=== PATIENT | male | born 1950 | race Caucasian/White ===

== ENCOUNTER 2016-06-25 12:12 | Inpatient (IN) | payer MEDICARE ==
[~2016-06-25] VITALS: Ht 180.3 cm; Wt 97.2 kg
[2016-07-02] MEDS ORDERED: PANT20TA2 PO (09:23)
[2016-07-02] MEDS ORDERED: FURO20TA PO (09:23)
[2016-07-02] MEDS ORDERED: METO25TA3 PO (09:23)
[2016-07-02] MEDS ORDERED: POTA99TA PO (09:23)
[2016-07-02] MEDS ORDERED: XARE20TA PO (09:23)
[2016-07-02] MEDS ORDERED: ATOR20TA15 PO (09:23)
[2016-07-02] MEDS ORDERED: SOTA80TA PO (09:23)
[2016-07-02] MEDS ORDERED: FLUO20CA4 PO (09:23)
[2016-07-19] MEDS ORDERED: SODIUM CHLORIDE 0.9% INJ 100 ML ONE (05:42)
[2016-07-19] MEDS ORDERED: SODIUM CHLORIDE 0.9% IV SCH ×2 (05:45→10:30)
[2016-07-19] MEDS ORDERED: DEXAMETHASONE SOD PHOS 20 MG/5 ML VIAL IV PRN (05:45)
[2016-07-19] MEDS ORDERED: VANCOMYCIN 1000 MG/NS 250 ML (for <70 kg) IV SCH ×2 (05:45)
[2016-07-19] MEDS ORDERED: POVIDONE IODINE 5% (ANTISEPSIS KIT) 4 APPLICATIONS EACH NARE PRN (05:45)
[2016-07-19] MEDS ORDERED: CHLORHEXIDINE GLUCONATE 4% SOLN 120 ML BTL TOPICAL SCH (05:45)
[2016-07-19] MEDS ORDERED: EXPAREL PERI-ARTICULAR INJECTION (TOTAL VOL. 60 ML) P-ARTICULR SCH ×2 (05:45)
[2016-07-19] MEDS ORDERED: SODIUM CHLORID 0.9% 500 ML IV PRN (05:45)
[2016-07-19] MEDS ORDERED: LACTATED RINGER'S 1000 ML IV PRN (05:45)
[2016-07-19] MEDS ORDERED: CLINDAMYCIN 900 MG/NS 100 ML IV SCH ×2 (05:45)
[2016-07-19] MEDS ORDERED: INSULIN HUMAN REGULAR 1,000 UNITS/10 ML VIAL SQ PRN (05:45)
[2016-07-19] MEDS ORDERED: POVIDONE IODINE 7.5% SCRUB 118 ML BOTTLE TOPICAL SCH (05:45)
[2016-07-19] MEDS ORDERED: CHLORHEXIDINE GLUCONATE 2 % 1 PACK (2 CLOTHS) TOPICAL PRN (05:45)
[2016-07-19] MEDS ORDERED: TRANEXAMIC PERI-ARTICULAR 3,000 MG/NS 100 ML P-ARTICULR SCH ×2 (05:45)
[2016-07-19] MEDS ORDERED: METOPROLOL TARTRATE 25 MG TAB PO PRN (05:45)
[2016-07-19] MEDS ORDERED: TRANEXAMIC ACID IV SCH ×2 (05:45→10:30)
[2016-07-19 05:56] VITALS: BP 127/65; PULSE 70; RESP 20; TEMP 97.6; O2SAT 94
[2016-07-19] MEDS ORDERED: GENTAMICIN SULFATE 80 MG/2 ML VIAL ONE (06:31)
[2016-07-19] MEDS ORDERED: ACETAMINOPHEN 1000 MG/100 ML VIAL IV ONE (06:31)
[2016-07-19] MEDS ORDERED: fentaNYL CITRATE 250 MCG/5 ML AMP ONE (06:31)
[2016-07-19] MEDS ORDERED: HYDROmorphone HCL PF 2 MG/ML VIAL ONE (06:31)
[2016-07-19] MEDS ORDERED: FAMOTIDINE 20 MG/2 ML VIAL ONE (06:31)
[2016-07-19] MEDS ORDERED: MIDAZOLAM HCL 2 MG/2 ML VIAL ONE (06:31)
[2016-07-19] MEDS ORDERED: Post-op Orders (for Pharmacy) MISC XX ONE (07:00)
[2016-07-19] MEDS ORDERED: NALOXONE HCL 0.4 MG/ML AMP IV PRN (07:00)
[2016-07-19] MEDS ORDERED: ACETAMINOPHEN/HYDROcodone 325 MG/10 MG TAB PO PRN (07:00)
[2016-07-19] MEDS ORDERED: ZOLPIDEM TARTRATE 5 MG TAB PO PRN (07:00)
[2016-07-19] MEDS ORDERED: ALUMINUM/MAGNESIUM/SIMETH 30 ML CUP PO PRN (07:00)
[2016-07-19] MEDS ORDERED: HYDR-3288 PO (07:00)
[2016-07-19] MEDS ORDERED: diphenhydrAMINE HCL 50 MG/ML VIAL IV PRN (07:00)
[2016-07-19] MEDS ORDERED: ONDANSETRON HCL 4 MG/2 ML VIAL IVP PRN (07:00)
[2016-07-19] MEDS ORDERED: BISACODYL 10 MG SUPP RECTAL PRN (07:00)
[2016-07-19] MEDS ORDERED: XARE10TA PO (07:01)
[2016-07-19] MEDS ORDERED: HYDROmorphone HCL PF 1 MG/ML VIAL IV PUSH PRN (07:15)
[2016-07-19] MEDS ORDERED: SODIUM CHLORIDE 0.9% FLUSH 10 ML FLUSH IV FLUSH PRN (07:15)
[2016-07-19] MEDS ORDERED: PILL SPLITTER OTHER PRN (08:00)
--- NOTE | 2016-07-19 08:48 | RADRPT ---
EXAM DATE/TIME: 07/19/2016 07:19 [facility] COMPARISON: No previous studies available for comparison. INDICATIONS : Post-op total right hip arthroplasty. MEDICAL HISTORY : None. SURGICAL HISTORY : None. ENCOUNTER: Initial ACUITY: 1 day PAIN SCORE: Non-responsive. LOCATION: Right Hip. FINDINGS: Patient is status post placement of a right hip prosthesis. There is good position and alignment of t he prosthesis and bony structures. The bony structures are grossly intact. Postsurgical changes are p resent. CONCLUSION: Good position and alignment on this postoperative examination. Vicente Merrill MD on July 19, 2016 at 8:45 Board Certified Radiologist. This report was verified electronically.
[2016-07-19] MEDS: SODIUM CHLORIDE 0.9% FLUSH 10 ML FLUSH IV FLUSH SCH ×2 (09:00→20:17)
[2016-07-19] MEDS: FLUoxetine HCL 20 MG CAP PO SCH (09:00)
[2016-07-19] MEDS: METOPROLOL TARTRATE 25 MG TAB PO SCH ×2 (09:00→20:12)
[2016-07-19] MEDS: PANTOPRAZOLE SOD 20 MG DELAYED RELEASE TAB PO SCH (09:00)
[2016-07-19] MEDS: SOTALOL HCL 80 MG TAB PO SCH ×2 (09:00→21:00)
--- NOTE | 2016-07-19 09:11 | MP ---
cc: AGUS MAGALLANES M.D. DATE OF SURGERY: 07/19/2016 PREOPERATIVE DIAGNOSIS Right hip osteoarthritis with osteonecrosis. POSTOPERATIVE DIAGNOSIS Right hip osteoarthritis with osteonecrosis. PROCEDURE Right total hip arthroplasty. SURGEON Dr. Agus Magallanes CONTAINER [employer]OP WELDER Agus Cabral PA-C ANESTHESIA General. ESTIMATED BLOOD LOSS 200 cc. COMPLICATIONS None. IMPLANTS USED DePuy Corail size 13 Press-Fit high offset femoral stem, size 54 solid [place] Gription cup, size 36 neutral highly crosslinked polyethylene liner, size 36 mm ceramic head, +5 neck. JUSTIFICATION The patient is a 66-year-old male with history of severe progressive right hip pain. He has had progressive severe pain which interferes with his activities of daily living. He has failed greater than three months of nonoperative conservative treatment to include medication, therapy, ambulatory assistive aids, home exercise program, activity modification and weight loss attempts. X-rays of the right hip reveal severe end-stage osteoarthritis with [id number] joint space narrowing, subchondral sclerosis, subchondral cysts, osteophyte formation, superior subluxation with flattening and collapse of the femoral head. The patient was counseled as to the risks, benefits and alternatives to a total hip arthroplasty. The risks were discussed which include but not limited to anesthesia, bleeding, infection, damage to nerves and blood vessels, pain, stiffness, leg length discrepancies, fracture, blood clots, pulmonary embolism, dislocation and . The patient's pain is severe. He favored the benefits over the risks and did wish to proceed with surgery. PROCEDURE IN DETAIL Written consent was obtained. The patient was identified by name, taken to the operating room and placed supine on the operating table. General anesthesia was administered as well as two grams of IV Ancef and one gram of IV vancomycin. With the patient transferred to the [place] table, the right and left feet were placed in padded traction boots. All bony prominences and pressure points were well-padded. The right hip and right lower extremity were prepped and draped using isopropyl alcohol, Hibiclens solution and DuraPrep solution. After a timeout was performed a longitudinal incision was made over the anterolateral aspect of the right hip. The fascial layer was incised. Dissection was carried over the tensor fascia roger and beneath the rectus femoris to allow exposure of the anterior hip capsule. A capsulotomy incision was performed. An oscillating saw was used to perform a femoral neck cut. The osteoarthritic and osteonecrotic femoral head and neck component was removed. A 10 blade scalpel was used to excise the labrum. Sequential reaming began at size 48 and was carried to a size 54. Subsequently a solid [place] size 54 cup was implanted in approximately 45 degrees of abduction and 10 degrees of anteversion. There was good purchase and fixation after implantation of the cup. A screw hole eliminator was placed followed by a neutral liner. The liner was impacted in place and tested for stability. Attention was turned to the femur where the leg with externally rotated, extended and adducted. The capsule was released off the undersurface of the greater trochanter. The leg was elevated and lateralized. A box cutting osteotome was used to gain entrance into the intramedullary canal of the femur. This was followed by a canal finder and sequential broaching up to size 13. Trial head and neck combinations were evaluated and final component was implanted. With the implants the leg could achieved full external rotation of approximately 70 degrees and extension all the way down to the ground without evidence of anterior instability. Soft tissue tension felt appropriate. No evidence of impingement throughout his tested range of motion. The surgical wound was thoroughly irrigated with sterile saline pulse lavage antibiotic-impregnated solution. The fascial layer was closed with #1 Vicryl suture, the subcutaneous tissue layer with 2-0 Vicryl suture, and the skin was closed with Dermabond. Sterile dressings were applied. The patient tolerated the procedure well and had no intraoperative complications noted. Agus Cabral, physician clinical trials assistant certified, was present during the procedure to include patient positioning and the procedure itself. The medical necessity of a physician clinical trials assistant was indicated in this case due to the complexity of the procedure. He assisted with appropriate manipulation of the leg and also retraction of muscle, tendon, bone and neurovascular structures. He assisted with preparation of bone and implantation of the prosthetic replacement. MD SANTIAGO Mcmullen/IRINA /8:39 AM /8:57 AM
[2016-07-19] MEDS ORDERED: *HYDROmorphone PF 1 MG VIAL PERIprocedural Use ONLY ONE ×2 (09:25→10:15)
[2016-07-19] MEDS: SODIUM CHLOR 0.9% 1000 ML INJ 1,000 ML IV SCH ×2 (09:53→18:47)
--- NOTE | 2016-07-19 10:20 | RADRPT ---
EXAM DATE/TIME: 07/19/2016 09:41 [facility] COMPARISON: No previous studies available for comparison. INDICATIONS : Post op right hip. MEDICAL HISTORY : None. SURGICAL HISTORY : None. ENCOUNTER: Initial ACUITY: 1 day PAIN SCORE: Non-responsive. LOCATION: Right hip FINDINGS: Patient is status post placement of a right hip prosthesis. There is good position and alignment of t he prosthesis and bony structures. The bony structures are grossly intact. Postsurgical changes are p resent. CONCLUSION: Good position and alignment on this postoperative examination. Vicente Merrill MD on July 19, 2016 at 10:17 Board Certified Radiologist. This report was verified electronically.
[2016-07-19 11:07] VITALS: BP 109/55; PULSE 68; RESP 17; TEMP 96.4; O2SAT 92
[2016-07-19] MEDS: ACETAMINOPHEN/HYDROcodone 325 MG/10 MG TAB PO PRN ×3 (11:33→20:13)
[2016-07-19] MEDS ORDERED: PROPOFOL 200 MG/20 ML AMP IV ONE (12:00)
[2016-07-19] MEDS ORDERED: PHENYLEPH/NS 1000 MCG/10 ML SYR IV ONE (12:00)
[2016-07-19] MEDS ORDERED: ePHEDrine/NS 25 MG/5 ML SYR IV ONE (12:00)
[2016-07-19] MEDS ORDERED: LACTATED RINGER'S 1000 ML INJ 1,000 ML IV ONE (12:00)
[2016-07-19] MEDS ORDERED: ONDANSETRON HCL 4 MG/2 ML VIAL IV PUSH ONE (12:00)
[2016-07-19] MEDS ORDERED: NEOSTIGMINE 3 MG/3 ML SYR IV ONE (12:00)
[2016-07-19] MEDS ORDERED: SODIUM CHLORID 0.9% 500 ML INJ 500 ML IV ONE (12:00)
--- NOTE | 2016-07-19 13:24 | HHI.FF ---
Face to Face Verification Diagnosis: (1) Primary localized osteoarthrosis, pelvic region and thigh Physical Therapy Gait training, Safety evaluation, Transfer training, bed to chair Hip: Total hip, Protocol: Right Right LE Weight Bearing: WB as tolerated Nursing RN: 3 days/week x 2 weeks Nursing: Dressing changes Dressing Changes: Daily dressing change I have seen patient Yahir Garcia on 07/19/16. My clinical findings support the need for the requested home health care services because: Limited ability to care for self High risk of falls I certify that my clinical findings support that this patient is homebound because: Post-op weakness Unsteady gait/balance Danny Cabral July 19, 2016 13:24
--- NOTE | 2016-07-19 13:24 | HHI.DCPOC ---
Discharge Care Plan Diagnosis: (1) Primary localized osteoarthrosis, pelvic region and thigh Your Health Problems Are: Difficulty with ADL Goals to Promote Your Health * To prevent worsening of your condition and complications * To maintain your health at the optimal level Directions to Meet Your Goals Take your medications as prescribed Follow your dietary instruction Follow activity as directed Keep your appointments as scheduled Take your immunizations and boosters as scheduled If your symptoms worsen call your PCP, if no PCP go to Urgent Care Center or Emergency Room Smoking is Dangerous to Your Health. Avoid second hand smoke Call the 24-hour hour crisis hotline for domestic abuse at Danny Cabral July 19, 2016 13:24
[2016-07-19] MEDS ORDERED: WALKER WHEELS/F1 MIS (13:26)
[2016-07-19] MEDS ORDERED: MISC-163 (13:26)
[2016-07-19 15:24] VITALS: BP 120/56; PULSE 67; RESP 17; TEMP 95.8; O2SAT 92
[2016-07-19 15:45] VITALS: O2SAT 96
--- NOTE | 2016-07-19 17:31 | PD.CONS ---
HPI Service [facility] Hospitalists Consult Requested By Dr Colin Kanh Reason for Consult medical management Primary Care Physician Fran Thompson MD Diagnoses: History of Present Illness The patient is a very pleasant 66-year-old male with past medical history of right hip OA and osteonecrosis, seminoma, hypertension, HLD, coronary artery disease, A. fib with ablation, mitral valve repair, COPD, history of severe sepsis requiring ICU stay , intubation h/o C. difficile and MRSA presented to same day surgery for right hip replacement. The patient was seated after the surgery. He denies having any chest pain, shortness of breath, wheezing, nausea , vomiting diarrhea or constipation. No fever or chills. Was able to eat after surgery and he was seeking in the chair after the surgery. He also complains this time. The hospitalist is consulted for medical management. 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 difficile and MRSA Past Surgical History Right knee anterior cruciate ligament Left knee surgery for torn meniscus Triple bypass Mitral valve replacement Ablation for A. fib Family History Father with heart problems, lung cancer prostate cancer and kidney cancer Mother with cancer unspecified site, bronchitis Brother also with heart problems Social History Denies alcohol use, tobacco use or illicit drug Physical Exam Vital Signs Vital Signs Date Time Temp Pulse Resp B/P Pulse Ox O2 Delivery O2 Flow Rate FiO2 07/19/16 15:45 96 21 07/19/16 11:07 96.4 68 17 109/55 92 07/19/16 10:45 65 16 105/59 96 Nasal Cannula 2 07/19/16 10:30 97.6 65 15 110/58 96 Nasal Cannula 2 07/19/16 10:15 63 15 108/55 95 Nasal Cannula 2 07/19/16 10:00 64 15 104/56 94 Nasal Cannula 2 07/19/16 09:55 15 07/19/16 09:45 63 15 107/57 98 Nasal Cannula 3 07/19/16 09:30 66 15 118/59 97 Nasal Cannula 3 07/19/16 09:15 68 14 121/62 98 Simple Mask 8 07/19/16 09:00 97.8 67 14 133/60 95 Simple Mask 8 07/19/16 05:56 97.6 70 20 127/65 94 Physical Exam GENERAL: This is a well-nourished, well-developed patient, in no apparent distress. SKIN: No rashes, ecchymoses or lesions. Cool and dry. HEAD: Atraumatic. Normocephalic. No temporal or scalp tenderness. EYES: Pupils equal round and reactive. Extraocular motions intact. No scleral icterus. No injection or drainage. ENT: Nose without bleeding, purulent drainage or septal hematoma. Throat without erythema, tonsillar hypertrophy or exudate. Uvula midline. Airway patent. NECK: Trachea midline. No JVD or lymphadenopathy. Supple, nontender, no meningeal signs. CARDIOVASCULAR: Regular rate and rhythm without murmurs, gallops, or rubs. RESPIRATORY: Clear to auscultation. Breath sounds equal bilaterally. No wheezes , rales, or rhonchi. GASTROINTESTINAL: Abdomen soft, non-tender, nondistended. No hepato-splenomegaly , or palpable masses. No guarding. MUSCULOSKELETAL: Extremities without clubbing, cyanosis, or edema. No joint tenderness, effusion, or edema noted. No calf tenderness. Negative Homans sign bilaterally. NEUROLOGICAL: Awake and alert. Cranial nerves II through XII intact. Motor and sensory grossly within normal limits. Five out of 5 muscle strength in all muscle groups. Normal speech. Laboratory Laboratory Tests Test 07/19/16 05:55 Blood Type O NEGATIVE Antibody Screen NEGATIVE Imaging Last Impressions Hip and Pelvis X-Ray 07/19/16 0000 Signed Impressions: Service Date/Time: Tuesday, July 19, 2016 09:41 - CONCLUSION: Good position and alignment on this postoperative examination. Vicente Merrill MD Hip X-Ray 07/19/16 0000 Signed Impressions: Service Date/Time: Tuesday, July 19, 2016 07:19 - CONCLUSION: Good position and alignment on this postoperative examination. Vicente Merrill MD Assessment and Plan Assessment and Plan The patient is a very pleasant 66-year-old male with past medical history seminoma, hypertension, coronary artery disease, A. fib with ablation, mitral valve repair, HLD, COPD, history of severe sepsis requiring ICU stay , intubation h/o C. difficile and MRSA presented to same day surgery for right hip replacement. Right hip osteoarthritis and osteonecrosis S/P Right hip replacement by Dr Colin Kahn Management per surgery Chronic medical problems appears atable at this time. Restart home medications. Hypertension, coronary artery disease, HLD, A. fib with ablation, mitral valve repair, hypertension, coronary artery disease. Monitor VS closely. Duonebs as need. Monitor O2 saturation. O2 supplement as need keep O2 sat > 92 % Laxatives/ antiemetics as need. DVT ppx per surgeon. Belinda Padilla MD July 19, 2016 17:31
[2016-07-19] MEDS: VANCOMYCIN INJ 1,000 MG in SODIUM CHLOR 0.9% 250 ML INJ 250 ML IV SCH (18:46)
[2016-07-19 19:35] VITALS: BP 124/61; PULSE 76; RESP 17; TEMP 96.4; O2SAT 92
[2016-07-19] MEDS: RIVAROXABAN 10 MG TAB PO SCH (20:12)
[2016-07-19 23:32] VITALS: BP 116/58; PULSE 70; RESP 18; TEMP 96.5; O2SAT 92
[2016-07-20 03:07] VITALS: BP 112/60; PULSE 70; RESP 18; TEMP 96.5; O2SAT 92
[2016-07-20] MEDS: SODIUM CHLOR 0.9% 1000 ML INJ 1,000 ML IV SCH ×3 (04:00→20:26)
[2016-07-20] MEDS: VANCOMYCIN INJ 1,000 MG in SODIUM CHLOR 0.9% 250 ML INJ 250 ML IV SCH (05:49)
[2016-07-20] MEDS: ACETAMINOPHEN/HYDROcodone 325 MG/10 MG TAB PO PRN ×4 (05:58→20:21)
[2016-07-20 07:22] LABS: HEMATOCRIT 28.5 % (39.0-51.0); MEAN CORPUSCULAR HEMOGLOBIN 29.5 PG (27.0-34.0); MEAN CORPUSCULAR HGB CONC 33.1 % (32.0-36.0); PLATELET COUNT 230 TH/MM3 (150-450); RED CELL DISTRIBUTION WIDTH 17.6 % (11.6-17.2); REVIEW FLAG FINAL; WHITE BLOOD COUNT 13.8 TH/MM3 (4.0-11.0)
[2016-07-20 07:52] LABS: BICARBONATE 24.7 MEQ/L (21.0-32.0)
[2016-07-20] MEDS: METOPROLOL TARTRATE 25 MG TAB PO SCH ×2 (07:52→20:21)
[2016-07-20] MEDS: FLUoxetine HCL 20 MG CAP PO SCH (07:52)
[2016-07-20] MEDS: PANTOPRAZOLE SOD 20 MG DELAYED RELEASE TAB PO SCH (07:52)
[2016-07-20 08:00] VITALS: BP 111/59; PULSE 69; RESP 19; TEMP 96; O2SAT 92
--- NOTE | 2016-07-20 08:14 | PD.ORT.PN ---
Subjective Post Op Day #: 1 Subjective Remarks pain tolerable. Objective Vitals Vital Signs Date Time Temp Pulse Resp B/P Pulse Ox O2 Delivery O2 Flow Rate FiO2 07/20/16 03:07 96.5 70 18 112/60 92 07/20/16 02:02 Room Air 07/19/16 23:32 96.5 70 18 116/58 92 07/19/16 21:13 18 07/19/16 19:35 96.4 76 17 124/61 92 07/19/16 15:45 96 21 07/19/16 15:24 95.8 67 17 120/56 92 07/19/16 11:07 96.4 68 17 109/55 92 07/19/16 10:45 65 16 105/59 96 Nasal Cannula 2 07/19/16 10:30 97.6 65 15 110/58 96 Nasal Cannula 2 07/19/16 10:15 63 15 108/55 95 Nasal Cannula 2 07/19/16 10:00 64 15 104/56 94 Nasal Cannula 2 07/19/16 09:55 15 07/19/16 09:45 63 15 107/57 98 Nasal Cannula 3 07/19/16 09:30 66 15 118/59 97 Nasal Cannula 3 07/19/16 09:15 68 14 121/62 98 Simple Mask 8 07/19/16 09:00 97.8 67 14 133/60 95 Simple Mask 8 I/O 07/19/16 07/19/16 07/19/16 07/20/16 07/20/16 07/20/16 07:00 15:00 23:00 07:00 15:00 23:00 Intake Total 1680 ml 761 ml 1069 ml Output Total 800 ml 300 ml 1000 ml Balance 880 ml 461 ml 69 ml Intake Oral 480 ml 360 ml 480 ml IV Total 100 ml 401 ml 589 ml Other 1100 ml Output Urine Total 500 ml 300 ml 1000 ml Estimated Blood Loss 300 ml # Voids 0 # Bowel Movements 0 0 0 Result Diagram: 07/20/16 0502 07/20/16 0502 Objective Remarks in bed, nad incision no erythema, no drainage neg homans nvi Assessment & Plan Ortho Post Op Day #: 1 Problem List: Assessment and Plan s/p R CHRISTOPHER anterior approach wbat daily dressing changes xarelto - resume today d/c planning to snf 3008 signed rx in chart f/up dr. herrera 2 weeks Danny Cabral July 20, 2016 08:14
[2016-07-20] MEDS: SODIUM CHLORIDE 0.9% FLUSH 10 ML FLUSH IV FLUSH SCH ×2 (09:00→20:20)
[2016-07-20] MEDS: SOTALOL HCL 80 MG TAB PO SCH ×2 (09:00→20:21)
--- NOTE | 2016-07-20 11:28 | HHI.PR ---
Subjective Remarks Says he has deviated septum and he gets nasal secretions, he is using ocean spray at home as need. Will order it. Pt otherwise has no chest pain or sob. No wheezing. No fever or chills. Objective Vitals Vital Signs Date Time Temp Pulse Resp B/P Pulse Ox O2 Delivery O2 Flow Rate FiO2 07/20/16 08:00 96.0 69 19 111/59 92 07/20/16 03:07 96.5 70 18 112/60 92 07/20/16 02:02 Room Air 07/19/16 23:32 96.5 70 18 116/58 92 07/19/16 21:13 18 07/19/16 19:35 96.4 76 17 124/61 92 07/19/16 15:45 96 21 07/19/16 15:24 95.8 67 17 120/56 92 I/O 07/19/16 07/19/16 07/19/16 07/20/16 07/20/16 07/20/16 06:59 14:59 22:59 06:59 14:59 22:59 Intake Total 1680 ml 761 ml 1069 ml Output Total 800 ml 300 ml 1000 ml Balance 880 ml 461 ml 69 ml Intake Oral 480 ml 360 ml 480 ml IV Total 100 ml 401 ml 589 ml Other 1100 ml Output Urine Total 500 ml 300 ml 1000 ml Estimated Blood Loss 300 ml # Voids 0 # Bowel Movements 0 0 0 Result Diagram: 07/20/16 0502 07/20/16 0502 Imaging Last Impressions Hip and Pelvis X-Ray 07/19/16 0000 Signed Impressions: Service Date/Time: Tuesday, July 19, 2016 09:41 - CONCLUSION: Good position and alignment on this postoperative examination. Vicente Merrill MD Hip X-Ray 07/19/16 0000 Signed Impressions: Service Date/Time: Tuesday, July 19, 2016 07:19 - CONCLUSION: Good position and alignment on this postoperative examination. Vicente Merrill MD Objective Remarks GENERAL: This is a well-nourished, well-developed patient, in no apparent distress. SKIN: No rashes, ecchymoses or lesions. Cool and dry. HEAD: Atraumatic. Normocephalic. No temporal or scalp tenderness. EYES: Pupils equal round and reactive. Extraocular motions intact. No scleral icterus. No injection or drainage. ENT: Nose without bleeding, purulent drainage or septal hematoma. Throat without erythema, tonsillar hypertrophy or exudate. Uvula midline. Airway patent. NECK: Trachea midline. No JVD or lymphadenopathy. Supple, nontender, no meningeal signs. CARDIOVASCULAR: Regular rate and rhythm without murmurs, gallops, or rubs. RESPIRATORY: Clear to auscultation. Breath sounds equal bilaterally. No wheezes , rales, or rhonchi. GASTROINTESTINAL: Abdomen soft, non-tender, nondistended. No hepato-splenomegaly , or palpable masses. No guarding. MUSCULOSKELETAL: Right hip with dressing on c/d/di/ Extremities without clubbing , cyanosis, or edema. No joint tenderness, effusion, or edema noted. No calf tenderness. Negative Homans sign bilaterally. NEUROLOGICAL: Awake and alert. Cranial nerves II through XII intact. Motor and sensory grossly within normal limits. Five out of 5 muscle strength in all muscle groups. Normal speech. A/P Assessment and Plan The patient is a very pleasant 66-year-old male with past medical history seminoma, hypertension, coronary artery disease, A. fib with ablation, mitral valve repair, HLD, COPD, history of severe sepsis requiring ICU stay , intubation h/o C. difficile and MRSA presented to same day surgery for right hip replacement. Right hip osteoarthritis and osteonecrosis S/P Right hip replacement by Dr Colin Kahn Management per surgery nasal congestion. Ordered [place] spray. Chronic medical problems appears atable at this time. Restart home medications. Hypertension, coronary artery disease, HLD, A. fib with ablation, mitral valve repair, hypertension, coronary artery disease. Monitor VS closely. Duonebs as need. Monitor O2 saturation. O2 supplement as need keep O2 sat > 92 % Laxatives/ antiemetics as need. Incentive spirometry. DVT ppx per surgeon. Belinda Padilla MD July 20, 2016 11:28
[2016-07-20] MEDS ORDERED: SODIUM CHLORIDE 0.65% NASAL SPRAY 45 ML BTL EACH NARE PRN (11:30)
[2016-07-20 12:00] VITALS: BP 116/70; PULSE 70; RESP 18; TEMP 97.2; O2SAT 94
[2016-07-20 16:00] VITALS: BP 136/67; PULSE 94; RESP 18; TEMP 96.3; O2SAT 93
[2016-07-20 20:01] VITALS: BP 124/61; PULSE 71; RESP 18; TEMP 96.5; O2SAT 98
[2016-07-20] MEDS: DOCUSATE SODIUM 100 MG CAP PO SCH (20:20)
[2016-07-20] MEDS: RIVAROXABAN 10 MG TAB PO SCH (20:21)
[2016-07-20] MEDS: MULTIVITAMINS/MINERALS THERAPEUTIC TAB PO SCH (20:21)
[2016-07-21 00:58] VITALS: BP 118/59; PULSE 71; RESP 18; TEMP 96.7; O2SAT 92
[2016-07-21 07:45] LABS: MEAN CELL VOLUME 90.1 FL (80.0-100.0); MEAN CORPUSCULAR HEMOGLOBIN 29.4 PG (27.0-34.0); MEAN CORPUSCULAR HGB CONC 32.6 % (32.0-36.0); PLATELET COUNT 192 TH/MM3 (150-450); RED BLOOD COUNT 3.33 MIL/MM3 (4.50-5.90); RED CELL DISTRIBUTION WIDTH 17.3 % (11.6-17.2); REVIEW FLAG FINAL; WHITE BLOOD COUNT 10.3 TH/MM3 (4.0-11.0)
--- NOTE | 2016-07-21 07:48 | PD.ORT.PN ---
Subjective Post Op Day #: 2 Subjective Remarks pain tolerable. denies cp and sob. Objective Vitals Vital Signs Date Time Temp Pulse Resp B/P Pulse Ox O2 Delivery O2 Flow Rate FiO2 07/21/16 00:58 96.7 71 18 118/59 92 07/21/16 00:00 Room Air 07/20/16 21:39 18 07/20/16 20:01 96.5 71 18 124/61 98 07/20/16 16:00 96.3 94 18 136/67 93 07/20/16 12:00 97.2 70 18 116/70 94 07/20/16 08:00 96.0 69 19 111/59 92 I/O 07/20/16 07/20/16 07/20/16 07/21/16 07/21/16 07/21/16 07:00 15:00 23:00 07:00 15:00 23:00 Intake Total 1069 ml 720 ml 480 ml 360 ml Output Total 1000 ml 300 ml 500 ml 300 ml Balance 69 ml 420 ml -20 ml 60 ml Intake Oral 480 ml 720 ml 480 ml 360 ml IV Total 589 ml Output Urine Total 1000 ml 300 ml 500 ml 300 ml # Voids 2 # Bowel Movements 0 0 0 Result Diagram: 07/21/16 0627 07/20/16 0502 Objective Remarks in bed, nad dressing c/d/i neg homans nvi Assessment & Plan Ortho Post Op Day #: 2 Problem List: Assessment and Plan s/p R CHRISTOPHER anterior approach wbat daily dressing changes xarelto - resumed d/c planning to snf 3008 signed rx in chart f/up dr. herrera 2 weeks Danny Cabral July 21, 2016 07:48
[2016-07-21 07:58] LABS: POTASSIUM 4.9 MEQ/L (3.5-5.1)
[2016-07-21 08:00] VITALS: BP 125/60; PULSE 73; RESP 18; TEMP 95.6; O2SAT 92
[2016-07-21] MEDS: FLUoxetine HCL 20 MG CAP PO SCH (08:58)
[2016-07-21] MEDS: METOPROLOL TARTRATE 25 MG TAB PO SCH ×2 (08:58→22:02)
[2016-07-21] MEDS: SOTALOL HCL 80 MG TAB PO SCH ×2 (08:58→22:02)
[2016-07-21] MEDS: MULTIVITAMINS/MINERALS THERAPEUTIC TAB PO SCH ×2 (08:58→22:02)
[2016-07-21] MEDS: PANTOPRAZOLE SOD 20 MG DELAYED RELEASE TAB PO SCH (08:58)
[2016-07-21] MEDS: ACETAMINOPHEN/HYDROcodone 325 MG/10 MG TAB PO PRN ×4 (08:58→22:05)
[2016-07-21] MEDS: DOCUSATE SODIUM 100 MG CAP PO SCH ×2 (08:58→22:01)
[2016-07-21] MEDS: SODIUM CHLORIDE 0.9% FLUSH 10 ML FLUSH IV FLUSH SCH ×2 (08:59→22:02)
[2016-07-21] MEDS: SODIUM CHLOR 0.9% 1000 ML INJ 1,000 ML IV SCH ×2 (10:00→20:00)
[2016-07-21 11:54] VITALS: BP 132/63; PULSE 74; RESP 19; TEMP 96.6; O2SAT 92
--- NOTE | 2016-07-21 13:16 | HHI.PR ---
Subjective Remarks Follow up hypertension, hip pain. Patient reporting "excruciating" pain in his hip today. No other complaints. Denies chest pain, dyspnea, nausea, vomiting. Objective Vitals Vital Signs Date Time Temp Pulse Resp B/P Pulse Ox O2 Delivery O2 Flow Rate FiO2 07/21/16 11:54 96.6 74 19 132/63 92 07/21/16 08:00 95.6 73 18 125/60 92 07/21/16 00:58 96.7 71 18 118/59 92 07/21/16 00:00 Room Air 07/20/16 21:39 18 07/20/16 20:01 96.5 71 18 124/61 98 07/20/16 16:00 96.3 94 18 136/67 93 I/O 07/20/16 07/20/16 07/20/16 07/21/16 07/21/16 07/21/16 07:00 15:00 23:00 07:00 15:00 23:00 Intake Total 1069 ml 720 ml 480 ml 360 ml Output Total 1000 ml 300 ml 500 ml 300 ml Balance 69 ml 420 ml -20 ml 60 ml Intake Oral 480 ml 720 ml 480 ml 360 ml IV Total 589 ml Output Urine Total 1000 ml 300 ml 500 ml 300 ml # Voids 2 # Bowel Movements 0 0 0 Result Diagram: 07/21/16 0627 07/21/16626 Imaging Last Impressions Hip and Pelvis X-Ray 07/19/16 0000 Signed Impressions: Service Date/Time: Tuesday, July 19, 2016 09:41 - CONCLUSION: Good position and alignment on this postoperative examination. Vicente Merrill MD Hip X-Ray 07/19/16 0000 Signed Impressions: Service Date/Time: Tuesday, July 19, 2016 07:19 - CONCLUSION: Good position and alignment on this postoperative examination. Vicente Merrill MD Objective Remarks General: No acute distress. Heart: Regular rate and rhythm. No murmur. Lungs: Clear to auscultation bilaterally. No wheezes, rales, or rhonchi. Breathing is nonlabored. Abdomen: Soft, nontender, nondistended. Extremities: No lower extremity edema. Psych: Alert and oriented. Procedures 07/19/16 right total hip arthroplasty Urinary Catheter: No Vascular Central Line Catheter: No A/P Problem List: (1) Primary localized osteoarthrosis, pelvic region and thigh ICD Code: M16.10 Status: Chronic (2) Hypertension ICD Code: I10 Status: Chronic Assessment and Plan 1. Osteoarthritis, right hip: Status post right total hip arthroplasty, POD #2. Management per orthopedic surgery. Continue pain control, bowel regimen, physical therapy. The patient is reporting increased pain in the hip today. 2. Hypertension: Blood pressure is controlled. 3. DVT prophylaxis: Xarelto. Discharge Planning Possible discharge to SNF tomorrow per orthopedic surgery. Mansoor Guzman MD July 21, 2016 13:16
[2016-07-21 16:00] VITALS: BP 111/58; PULSE 75; RESP 18; TEMP 97.9; O2SAT 94
[2016-07-21 20:06] VITALS: BP 123/59; PULSE 75; RESP 19; TEMP 97.2; O2SAT 94
[2016-07-21] MEDS: RIVAROXABAN 10 MG TAB PO SCH (22:02)
[2016-07-22 00:24] VITALS: BP 109/55; PULSE 73; RESP 18; TEMP 97.3; O2SAT 92
[2016-07-22] MEDS: SODIUM CHLOR 0.9% 1000 ML INJ 1,000 ML IV SCH (04:15)
[2016-07-22] MEDS: ACETAMINOPHEN/HYDROcodone 325 MG/10 MG TAB PO PRN ×3 (06:33→15:07)
[2016-07-22 07:28] VITALS: BP 116/54; PULSE 74; RESP 18; TEMP 96.8; O2SAT 92
[2016-07-22] MEDS ORDERED: MAGNESIUM HYDROXIDE SUSP 30 ML CUP PO PRN (07:30)
[2016-07-22 07:37] LABS: HEMATOCRIT 31.4 % (39.0-51.0); MEAN CELL VOLUME 88.8 FL (80.0-100.0); MEAN CORPUSCULAR HEMOGLOBIN 28.9 PG (27.0-34.0); MEAN CORPUSCULAR HGB CONC 32.5 % (32.0-36.0); PLATELET COUNT 234 TH/MM3 (150-450); RED BLOOD COUNT 3.53 MIL/MM3 (4.50-5.90); RED CELL DISTRIBUTION WIDTH 17.9 % (11.6-17.2); REVIEW FLAG FINAL
[2016-07-22 07:57] LABS: BICARBONATE 29.2 MEQ/L (21.0-32.0); POTASSIUM 4.5 MEQ/L (3.5-5.1)
[2016-07-22] MEDS: FLUoxetine HCL 20 MG CAP PO SCH (07:59)
[2016-07-22] MEDS: DOCUSATE SODIUM 100 MG CAP PO SCH (07:59)
--- NOTE | 2016-07-22 07:59 | PD.ORT.PN ---
Subjective Post Op Day #: 3 Subjective Remarks pain much better today. denies cp and sob. Objective Vitals Vital Signs Date Time Temp Pulse Resp B/P Pulse Ox O2 Delivery O2 Flow Rate FiO2 07/22/16 07:28 96.8 74 18 116/54 92 07/22/16 00:24 97.3 73 18 109/55 92 07/21/16 20:06 97.2 75 19 123/59 94 07/21/16 16:00 97.9 75 18 111/58 94 07/21/16 11:54 96.6 74 19 132/63 92 07/21/16 08:00 95.6 73 18 125/60 92 I/O 07/21/16 07/21/16 07/21/16 07/22/16 07/22/16 07/22/16 07:00 15:00 23:00 07:00 15:00 23:00 Intake Total 360 ml 650 ml 480 ml 480 ml Output Total 300 ml 1000 ml 500 ml 700 ml Balance 60 ml -350 ml -20 ml -220 ml Intake Oral 360 ml 650 ml 480 ml 480 ml Output Urine Total 300 ml 1000 ml 500 ml 700 ml # Bowel Movements 0 0 0 Result Diagram: 07/22/16 0644 07/22/16 0644 Objective Remarks in bed, nad dressing c/d/i thigh soft neg homans nvi Assessment & Plan Ortho Post Op Day #: 2 Problem List: Assessment and Plan s/p R CHRISTOPHER anterior approach wbat daily dressing changes xarelto - resumed d/c planning to snf - cleared for today 3008 signed rx in chart f/up dr. herrera 2 weeks Danny Cabral July 22, 2016 07:59
[2016-07-22] MEDS: PANTOPRAZOLE SOD 20 MG DELAYED RELEASE TAB PO SCH (08:00)
[2016-07-22] MEDS: METOPROLOL TARTRATE 25 MG TAB PO SCH (08:00)
[2016-07-22] MEDS: MULTIVITAMINS/MINERALS THERAPEUTIC TAB PO SCH (08:00)
[2016-07-22] MEDS: SOTALOL HCL 80 MG TAB PO SCH (08:00)
[2016-07-22] MEDS: SODIUM CHLORIDE 0.9% FLUSH 10 ML FLUSH IV FLUSH SCH (08:03)
--- NOTE | 2016-07-22 10:20 | HHI.PR ---
Subjective Remarks Follow-up hypertension, hip pain. The patient states that his pain is well controlled today. He has not had a bowel movement, but does report flatus. He does not feel constipated and has no abdominal discomfort. Objective Vitals Vital Signs Date Time Temp Pulse Resp B/P Pulse Ox O2 Delivery O2 Flow Rate FiO2 07/22/16 07:28 96.8 74 18 116/54 92 07/22/16 00:24 97.3 73 18 109/55 92 07/21/16 20:06 97.2 75 19 123/59 94 07/21/16 16:00 97.9 75 18 111/58 94 07/21/16 11:54 96.6 74 19 132/63 92 I/O 07/21/16 07/21/16 07/21/16 07/22/16 07/22/16 07/22/16 06:59 14:59 22:59 06:59 14:59 22:59 Intake Total 360 ml 650 ml 480 ml 480 ml Output Total 300 ml 1000 ml 500 ml 700 ml Balance 60 ml -350 ml -20 ml -220 ml Intake Oral 360 ml 650 ml 480 ml 480 ml Output Urine Total 300 ml 1000 ml 500 ml 700 ml # Bowel Movements 0 0 0 Result Diagram: 07/22/16 0644 07/22/16 0644 Imaging Last Impressions Hip and Pelvis X-Ray 07/19/16 0000 Signed Impressions: Service Date/Time: Tuesday, July 19, 2016 09:41 - CONCLUSION: Good position and alignment on this postoperative examination. Vicente Merrill MD Hip X-Ray 07/19/16 0000 Signed Impressions: Service Date/Time: Tuesday, July 19, 2016 07:19 - CONCLUSION: Good position and alignment on this postoperative examination. Vicente Merrill MD Objective Remarks General: No acute distress. Heart: Regular rate and rhythm. No murmur. Lungs: Clear to auscultation bilaterally. No wheezes, rales, or rhonchi. Breathing is nonlabored. Abdomen: Soft, nontender, nondistended. Positive bowel sounds. Extremities: No lower extremity edema. Psych: Alert and oriented. Procedures 07/19/16 right total hip arthroplasty Urinary Catheter: No Vascular Central Line Catheter: No A/P Problem List: (1) Primary localized osteoarthrosis, pelvic region and thigh ICD Code: M16.10 Status: Chronic (2) Hypertension ICD Code: I10 Status: Chronic Assessment and Plan 1. Osteoarthritis, right hip: Status post right total hip arthroplasty, POD #3. Management per orthopedic surgery. Continue pain control, bowel regimen, physical therapy. The patient has not had a bowel movement, but does not feel constipated and is reporting flatus. 2. Hypertension: Blood pressure is controlled. 3. DVT prophylaxis: Xarelto. Discharge Planning Plan for discharge to SNF today per orthopedic surgery. Mansoor Guzman MD July 22, 2016 10:20
[2016-07-22 11:22] VITALS: BP 108/51; PULSE 74; RESP 19; TEMP 97.6; O2SAT 94
[2016-07-22] MEDS ORDERED: LACTULOSE SYRUP 20 GM/30 ML CUP PO ONE (11:30)
--- NOTE | 2016-07-26 14:24 | MD ---
cc: AGUS MAGALLANES M.D. ADMISSION DATE: 07/19/2016 DISCHARGE DATE: 07/22/2016 ADMISSION DIAGNOSIS Severe degenerative osteoarthritis right hip. DISCHARGE DIAGNOSIS Severe degenerative osteoarthritis right hip. HISTORY OF PRESENT ILLNESS Mr. Garcia is a 66-year-old male who presented to the [facility] for evaluation by Dr. Agus Magallanes regarding his severe and progressive right hip pain. The patient states the pain has been progressive for greater than one year duration for which he received treatment for this ailment. He notes it is a constant, severe aching sensation that is aggravated by weightbearing activity. He has no alleviating factors at this point in time although in the past he has tried medications, assistive devices, physical therapy, home exercise without significant relief of symptoms. He does have x-ray evidence of severe degenerative osteoarthritis of the right hip. While in the office the patient was counseled as to his diagnosis and treatment options, risks, benefits, indications were all discussed in great detail. The patient did elect to proceed with surgical intervention to include a right total hip arthroplasty. DATE OF SURGERY 07/19/2016. PPI Right total hip arthroplasty anterior approach. POSTOP After surgery the patient was admitted to [facility] where he received appropriate medical management, pain control, DVT prophylaxis as well as physical therapy. DISCHARGE Once being discharged from the hospital, the patient was cleared to go to a senior care facility. He is in stable condition. The patient may weight-bear as tolerated with anterior hip precautions. He has been instructed on appropriate wound care and management and is to receive daily dressing changes. The patient has been provided prescriptions for pain control as well as been instructed to resume his anticoagulation medication, Xarelto. He has been provided a follow-up appointment to see Dr. Agus Magallanes in the office in approximately two weeks from the date of surgery. The patient has asked appropriate questions which have been answered. The patient has been cleared for discharge. Dictated by: Beck Cabral PA-C Agus Magallanes MD JWM/SSB /8:04 AM /2:24 PM
== END 2016-07-22 16:27 | DRG 470 ==
LOC: HSDI 07-19 05:07 → EDSTATUS 07-19 10:00 → N06A 07-19 11:09
PROVIDERS: ADMIT Orthopaedic Surgery Sports Medicine; ATTEND Orthopaedic Surgery Sports Medicine
PROC: 0SR904A Replacement of Right Hip Joint with Ceramic on Polyethylene Synthetic Substitute, Uncemented, Open Approach (ICD-10-PCS; principal; 2016-07-19 06:43)
DX: M16.11 Unilateral primary osteoarthritis, right hip (principal); M87.9 Osteonecrosis, unspecified; J44.9 Chronic obstructive pulmonary disease, unspecified; I10 Essential (primary) hypertension; E78.5 Hyperlipidemia, unspecified; I25.10 Atherosclerotic heart disease of native coronary artery without angina pectoris; Z86.14 Personal history of Methicillin resistant Staphylococcus aureus infection; Z95.2 Presence of prosthetic heart valve; Z85.47 Personal history of malignant neoplasm of testis; Z80.1 Family history of malignant neoplasm of trachea, bronchus and lung; Z80.42 Family history of malignant neoplasm of prostate; Z80.51 Family history of malignant neoplasm of kidney; Z80.9 Family history of malignant neoplasm, unspecified
CPT/HCPCS: 73502; 76000; 80048; 85027; 86850; 86900; 86901; 94150; C1776; C9290; J0131; J1100; J1170; J1580; J2250; J2370; J2405; J2710; J3010; J3370; J7030; J7040; J7050; J7120

== ENCOUNTER → 2016-07-02 | Outpatient (CLI) | payer MEDICARE ==
[~2016-07-02] MED LIST: ATOR20TA15 PO; COUM3TAB PO; FLUO20CA4 PO; FOLI1TAB PO; FURO20TA PO; HYDR-3288 PO; LIPI40TA PO; METO25 PO; METO25TA3 PO; MISC-163; NEXI40CA PO; PANT20TA2 PO; POTA99TA PO; SERT-132 PO; SOTA80TA PO; WALKER WHEELS/F1 MIS; XARE10TA PO; XARE20TA PO
[2016-07-02 09:05] LABS: BASOPHIL % 0.5 % (0.0-2.0); EOSINOPHIL # 0.1 TH/MM3 (0-0.4); EOSINOPHIL % 1.6 % (0.0-4.0); HEMATOCRIT 34.9 % (39.0-51.0); HEMO FLAGS DIFF FINAL; LYMPH % 9.7 % (9.0-44.0); LYMPHOCYTE # 0.7 TH/MM3 (1.0-4.8); MEAN CORPUSCULAR HEMOGLOBIN 29.3 PG (27.0-34.0); MEAN CORPUSCULAR HGB CONC 33.2 % (32.0-36.0); MONO % 8.5 % (0.0-8.0); NEUT % 79.7 % (16.0-70.0); PLATELET COUNT 264 TH/MM3 (150-450); RED BLOOD COUNT 3.97 MIL/MM3 (4.50-5.90); RED CELL DISTRIBUTION WIDTH 16.2 % (11.6-17.2); WHITE BLOOD COUNT 7.5 TH/MM3 (4.0-11.0)
[2016-07-02 09:12] LABS: APTT (PATIENT) 38.1 SEC (24.3-30.1); INTERNATIONAL NORMALIZED RATIO 1.2 RATIO; PROTHROMBIN TIME - PATIENT 13.4 SEC (9.8-11.6)
[2016-07-02 09:38] LABS: WESTERGREN SEDIMENTATION RATE 66 mm/hr (0-20)
[2016-07-02 09:44] LABS: ALKALINE PHOSPHATASE 88 U/L (45-117); ALT (GPT) 16 U/L (12-78); ANION GAP 5 MEQ/L (5-15); AST (GOT) 12 U/L (15-37); BICARBONATE 26.6 MEQ/L (21.0-32.0); BLOOD UREA NITROGEN 19 MG/DL (7-18); CHLORIDE 104 MEQ/L (98-107); GLOMERULAR FILTRATION RATE 51 ML/MIN (>89); GLUCOSE,FASTING 128 MG/DL (74-99); POTASSIUM 4.4 MEQ/L (3.5-5.1); SODIUM (NA) 136 MEQ/L (136-145)
[2016-07-02 12:59] LABS: BLOOD, URINE NEG (NEG); GLUCOSE,URINE NEG (NEG); KETONE, URINE NEG (NEG); NITRITE,URINE NEG (NEG); URINE COLOR YELLOW (YELLW/STRAW)
[2016-07-02 13:00] LABS: COMMENT (UR) CULT NOT INDICATED; CULTURE IF INDICATED CULT NOT INDICATED
--- NOTE | 2016-07-02 13:38 | RADRPT ---
EXAM DATE/TIME: 07/02/2016 12:57 [facility] COMPARISON: CHEST PA & LAT, February 24, 2011, 8:06. INDICATIONS : Evaluate for pneumothorax, pneumonia or communicable disease. Pre op chest for right hip replacement on 07/19/16 MEDICAL HISTORY : Cardiovascular disease. A-fib, coma, MRSA SURGICAL HISTORY : CABG. mitral valve replaced ENCOUNTER: Initial ACUITY: 1 day PAIN SCORE: 0/10 LOCATION: Bilateral chest FINDINGS: The lungs are clear without infiltrate, nodule, or mass. There is no appreciable pleural effusion fo r technique. Heart and mediastinum are unremarkable. There is evidence for prior median sternotomy. IMPRESSION: No acute cardiopulmonary disease. Robin Barlow MD on July 02, 2016 at 13:35 Board Certified Radiologist. This report was verified electronically.
== END ==
LOC: CPRE 08:33
PROVIDERS: ATTEND Orthopaedic Surgery Sports Medicine
DX: Z01.811 Encounter for preprocedural respiratory examination (principal); Z01.812 Encounter for preprocedural laboratory examination; Z01.818 Encounter for other preprocedural examination; M16.11 Unilateral primary osteoarthritis, right hip; M25.50 Pain in unspecified joint; Z79.01 Long term (current) use of anticoagulants
CPT/HCPCS: 36415; 71020; 80053; 81001; 85025; 85610; 85652; 85730

== ENCOUNTER 2018-01-09 15:19 | Inpatient (IN) ==
[2018-01-09] MEDS ORDERED: Propofol 1000 mg/100 ml Inj 1,000 MG/100 ML BOTTLE IV.CONT PRN (15:26)
[2018-01-09] MEDS ORDERED: Sod Chloride 0.9% Inj 1,000 ML IV.CONT SCH (15:30)
[2018-01-09 15:38] LABS: Baso # (Auto) 0.5 th/mm3 (0.0-0.2); Baso % (Auto) 3.9 % (0.0-2.0); Eos # (Auto) 0.1 th/mm3 (0.0-0.4); Eos % (Auto) 1.1 % (0.0-4.0); Hematocrit 46.1 % (39.0-51.0); Hemoglobin 14.8 gm/dL (13.0-17.0); Lymph # (Auto) 2.8 th/mm3 (1.0-4.8); Lymph % (Auto) 22.4 % (9.0-44.0); Mean Corpuscular Hemoglobin 31.2 pg (27.0-34.0); Mean Corpuscular Volume 97.5 fL (80.0-100.0); Mean Platelet Volume 8.6 fL (7.0-11.0); Mono # (Auto) 0.8 th/mm3 (0.0-0.9); Mono % (Auto) 6.3 % (0.0-8.0); Neut # (Auto) 8.4 th/mm3 (1.8-7.7); Neut % (Auto) 66.3 % (16.0-70.0); Platelet Count 257 th/mm3 (150-450); Red Blood Count 4.73 mil/mm3 (4.50-5.90); Red Cell Distribution Width 16.2 % (11.6-17.2); White Blood Count 12.6 th/mm3 (4.0-11.0)
[2018-01-09 15:41] LABS: Chloride 104 meq/L (98-107); Potassium 4.8 meq/L (3.5-5.1); Sodium 137 meq/L (136-145)
[2018-01-09 15:44] LABS: Calcium 8.5 mg/dL (8.5-10.1)
[2018-01-09 15:45] LABS: Albumin 3.5 g/dL (3.4-5.0); Anion Gap 17 meq/L (5-15); Blood Urea Nitrogen 29 mg/dL (7-18); Carbon Dioxide 15.7 meq/L (21.0-32.0); Glucose,Random 229 mg/dL (74-106)
[2018-01-09] MEDS: Sod Chloride 0.9% Inj 1,000 ML IV.SIG SCH ×3 (15:45→17:34)
[2018-01-09 15:48] LABS: Alanine Aminotransferase 53 U/L (12-78); Aspartate Aminotransferase 67 U/L (15-37); Glomerular Filtration Rate 38 mL/min (>89)
[2018-01-09 15:49] LABS: Total Protein 7.8 g/dL (6.4-8.2)
[2018-01-09 15:50] LABS: Creatine Kinase 132 U/L (39-308)
[2018-01-09 15:51] LABS: Alkaline Phosphatase 118 U/L (45-117)
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
[2018-01-09 16:12] LABS: Troponin I 2.83 ng/mL (0.02-0.05)
[2018-01-09 16:14] LABS: INR 1.2 Ratio
[2018-01-09] MEDS ORDERED: Aztreonam Inj 2 GM in Sodium Chloride 0.9% Inj 100 ML IV.SIG STA (16:39)
[2018-01-09] MEDS ORDERED: Vancomycin Inj 1,000 MG in Sodium Chlor 0.9% Inj 250 ML IV.SIG STA (16:39)
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
[2018-01-09] MEDS ORDERED: Aspirin 300 MG Supp RECTAL ONE (17:17)
--- NOTE | 2018-01-09 17:25 | ECHRPT ---
Indication: CARDIAC ARREST CONCLUSIONS The left ventricular systolic function is mildly reduced with an estimated ejection fraction in the range of 45- 50%. Normal left ventricular size. Moderate concentric left ventricular hypertrophy. No regional wall motion abnormalities are present. Moderate thickening of the mitral valve leaflets. Calcification of both mitral valve leaflets. Mild mitral valve stenosis. Diffuse calcification of the aortic valve. Sjpd-[id number]-[id number] aortic valve regurgitation. Mild aortic valve stenosis. Aortic valve area is 1 cm. Aortic valve mean gradient is 9 mmHg. There is moderate to severe tricuspid valve regurgitation. The estimated pulmonary arterial pressure is 50.7 mmHg. BP: / HR: Rhythm: Sinus MEASUREMENTS (Male / Female) Normal Values Technical Quality:Very technically difficult study 2D ECHO LV Diastolic Diameter PLAX 2.9 cm 4.2 - 5.9 / 3.9 - 5.3 cm LV Systolic Diameter PLAX 2.4 cm IVS Diastolic Thickness 1.8 cm 0.6 - 1.0 / 0.6 - 0.9 cm LVPW Diastolic Thickness 1.7 cm 0.6 - 1.0 / 0.6 - 0.9 cm LV Relative Wall Thickness 1.2 LVOT Diameter 1.7 cm LA Systolic Diameter LX 3.4 cm 3.0 - 4.0 / 2.7 - 3.8 cm M-MODE Aortic Root Diameter MM 2.1 cm LA Systolic Diameter MM 3.3 cm LA Ao Ratio MM 1.6 AV Cusp Separation MM 0.8 cm DOPPLER AV Peak Velocity 240.0 cm/s AV Peak Gradient 23.0 mmHg AV Mean Gradient 9.0 mmHg AV Velocity Time Integral 40.3 cm AI Peak Velocity 354.0 cm/s AI Peak Gradient 50.1 mmHg AI Pressure Half Time 480.0 ms LVOT Peak Velocity 91.7 cm/s LVOT Peak Gradient 3.4 mmHg LVOT Velocity Time Integral 18.1 cm AV Area Cont Eq vti 1.0 cm AV Area Cont Eq pk 0.9 cm MV Peak Velocity 167.0 cm/s MV Peak Gradient 11.2 mmHg MV Mean Velocity 113.0 cm/s MV Mean Gradient 6.0 mmHg MV Area PHT 1.8 cm Mitral E Point Velocity 153.0 cm/s Mitral A Point Velocity 110.0 cm/s Mitral E to A Ratio 1.4 TR Peak Velocity 319.0 cm/s TR Peak Gradient 40.7 mmHg Right Atrial Pressure 10.0 mmHg Pulmonary Artery Systolic Pressu 50.7 mmHg Right Ventricular Systolic Press 50.7 mmHg PV Peak Velocity 57.0 cm/s PV Peak Gradient 1.3 mmHg FINDINGS LEFT VENTRICLE The left ventricular systolic function is mildly reduced with an estimated ejection fraction in the range of 45- 50%. Normal left ventricular size. Moderate concentric left ventricular hypertrophy. No regional wall motion abnormalities are present. MITRAL VALVE Moderate thickening of the mitral valve leaflets. Calcification of both mitral valve leaflets. Mild mitral valve stenosis. AORTIC VALVE Trileaflet aortic valve. Diffuse calcification of the aortic valve. [id number] aortic valve regurgitation. Mild aortic valve stenosis. Aortic valve area is 1 cm. Aortic valve mean gradient is 9 mmHg. TRICUSPID VALVE Structurally normal tricuspid valve. There is moderate to severe tricuspid valve regurgitation. The estimated pulmonary arterial pressure is 50.7 mmHg. Frandy Cullen MD, FACC, [facility] (Electronically Signed) Final Date:09 January 2018 17:25
[2018-01-09] MEDS: fentaNYL 10 mcg/mL Premix Drip 2,500 MCG/250 ML BAG IV.SIG PRN (17:36)
[2018-01-09] MEDS: Midazolam 50 MG/50 ML Inj 50 MG/50 ML BAG IV.CONT PRN ×2 (17:37→20:26)
[2018-01-09] MEDS ORDERED: Hydrocortisone Sod Succinate 100 MG Vial IV.PUSH ONE (18:37)
[2018-01-09] MEDS: DOPamine 800 MG/500 ML Premix 800 MG/500 ML PLAST..BAG IV.CONT PRN (18:48)
--- NOTE | 2018-01-09 19:03 | ECG ---
Date Performed: 01/09/2018 Time Performed: 15:40:55 PTAGE: 67 years EKG: ATRIAL FIBRILLATION MARKED RIGHT AXIS DEVIATION RIGHT BUNDLE BRANCH BLOCK AND POSSIBLE RIGH T VENTRICULAR HYPERTROPHY ABNORMAL ECG No significant change from prior electrocardiogram. PREVIOUS TRACING : 01/09/2018 15.20 DOCTOR: Brian Garg Interpretating Date/Time 01/09/2018 19:02:06
--- NOTE | 2018-01-09 19:04 | ECG ---
Date Performed: 01/09/2018 Time Performed: 15:20:25 PTAGE: 67 years EKG: ATRIAL FIBRILLATION MARKED RIGHT AXIS DEVIATION RIGHT BUNDLE BRANCH BLOCK AND POSSIBLE RIGH T VENTRICULAR HYPERTROPHY ABNORMAL ECG Compared to prior electrocardiogram, Atrial fibrillation and r ight bundle branch block are present. PREVIOUS TRACING : 02/24/2011 07.45 DOCTOR: Brian Garg Interpretating Date/Time 01/09/2018 19:03:17
[2018-01-09] MEDS ORDERED: DOPamine 800 MG/500 ML Premix 800 MG/500 ML PLAST..BAG IV.CONT ONE (19:14)
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
[2018-01-09 21:02] LABS: ABG Base Excess -12.1 mmol/L (-2-2); ABG PCO2 41 mmHg (38-42); ABG PO2 90 mmHG (61-120)
[2018-01-09 21:34] LABS: Troponin I 9.29 ng/mL (0.02-0.05)
[2018-01-09 21:46] LABS: Creatine Kinase MB 34.9 ng/mL (0.5-3.6)
[2018-01-09 21:50] LABS: CKMB Percent 8.7 % (0.0-4.0)
[2018-01-09] MEDS ORDERED: Vancomycin Consult Pharmacy OTHER PRN (22:14)
[2018-01-09] MEDS ORDERED: Potassium Phosphate Inj 30 MMOL in Sodium Chlor 0.9% Inj 250 ML IV.SIG PRN (22:16)
[2018-01-09] MEDS ORDERED: Acetaminophen 325 MG Tablet PO PRN (22:16)
[2018-01-09] MEDS ORDERED: Bisacodyl 10 MG Supp RECTAL PRN (22:16)
[2018-01-09] MEDS ORDERED: Potassium Chloride 25 MEQ Effervescent Tablet PO PRN (22:16)
[2018-01-09] MEDS ORDERED: Potassium Chlor 40 mEq Premix 40 MEQ/100 ML PIGGYBACK IV.SIG PRN ×2 (22:16)
[2018-01-09] MEDS ORDERED: Magnesium Oxide 400 MG Tablet PO PRN (22:16)
[2018-01-09] MEDS ORDERED: Potassium Chlor 20 mEq Premix 20 MEQ/100 ML PIGGYBACK IV.SIG PRN ×2 (22:16)
[2018-01-09] MEDS ORDERED: Magnesium Sulfate Inj 2 GM in Sodium Chlor 0.9% Inj 96 ML IV.SIG PRN (22:16)
[2018-01-09] MEDS ORDERED: Sodium Phosphate Inj 30 MMOL in Sodium Chlor 0.9% Inj 250 ML IV.SIG PRN (22:16)
[2018-01-09] MEDS ORDERED: Dextrose 50% in Water 50 ML Vial IV.PUSH PRN (22:16)
[2018-01-09] MEDS ORDERED: Potassium Phosphate 500 MG Soluble Tablet PO PRN (22:16)
[2018-01-09] MEDS ORDERED: Magnesium Sulfate Inj 4 GM in Sodium Chlor 0.9% Inj 92 ML IV.SIG PRN (22:16)
[2018-01-09] MEDS ORDERED: Sodium Bicarbonate 8.4% Inj 50 MEQ/50 ML Syringe IV.PUSH STA (22:26)
--- NOTE | 2018-01-09 22:28 | P.PCN ---
Date of procedure: 01/09/18 Procedure: Procedure: Arterial Line Placement Left radial arterial line Diagnosis: Cardiogenic shock Indications: Need for beat to beat hemodynamic monitoring Consent: Emergent Description of the Procedure: The left wrist was prepped and draped sterilely. 1% lidocaine was used for local anesthesia. The pulse was located and a needle was advanced into the artery. A 20 gauge, 12 cm catheter was advanced into the artery using a modified Seldinger technique. The catheter was sutured to the skin and a sterile dressing was applied. The catheter was connected to a pressure transducer and an arterial waveform was noted. There were no immediate complications noted. There was minimal EBL. I personally performed the procedure.
[2018-01-09] MEDS: Heparin Drip 25,000 UNIT/250 ML BAG IV.CONT PRN (22:52)
[2018-01-09 23:32] LABS: Troponin I 8.51 ng/mL (0.02-0.05)
[2018-01-10 00:54] LABS: ABG Base Excess -6.9 mmol/L (-2-2); ABG PCO2 28 mmHg (38-42); ABG PO2 74 mmHG (61-120)
[2018-01-10] MEDS: Insulin NovoLIN Regular Correctional Sugar Inj SQ SCH ×4 (01:04→18:06)
[2018-01-10] MEDS: Oral Hygiene Kit OROPHARYNG SCH ×4 (01:04→15:55)
[2018-01-10 01:19] LABS: Bilirubin,Urine Negative (Negative); Clarity,Urine Cloudy (Clear); Color,Urine Yellow (Yellw/Straw); Glucose,Urine (UA) 50 mg/dL (Negative); Leukocyte Esterase,Urine Negative (Negative); Mucus,Urine Few /lpf (Occasional); Nitrite,Urine Negative (Negative); Specific Gravity,Urine 1.034 (1.002-1.035)
[2018-01-10] MEDS: Midazolam 50 MG/50 ML Inj 50 MG/50 ML BAG IV.CONT PRN ×2 (02:27→16:30)
[2018-01-10] MEDS: Chlorhexidine Gluconate 2% 1 Pack (2 Cloths) TOPICAL SCH (03:50)
[2018-01-10] MEDS ORDERED: Chlorhexidine Gluconate 2% 1 Pack (2 Cloths) TOPICAL PRN (04:00)
[2018-01-10 05:20] LABS: ABG PCO2 25 mmHg (38-42); ABG PO2 77 mmHG (61-120)
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
[2018-01-10 05:39] LABS: Baso % (Auto) 0.2 % (0.0-2.0); Hematocrit 39.9 % (39.0-51.0); Hemoglobin 13.3 gm/dL (13.0-17.0); Lymph # (Auto) 0.7 th/mm3 (1.0-4.8); Lymph % (Auto) 4.4 % (9.0-44.0); Mean Corpuscular HGB Conc 33.3 % (32.0-36.0); Mean Corpuscular Hemoglobin 31.2 pg (27.0-34.0); Mean Corpuscular Volume 93.8 fL (80.0-100.0); Mean Platelet Volume 8.3 fL (7.0-11.0); Mono # (Auto) 1.4 th/mm3 (0.0-0.9); Mono % (Auto) 8.4 % (0.0-8.0); Neut # (Auto) 14.3 th/mm3 (1.8-7.7); Platelet Count 288 th/mm3 (150-450); Red Blood Count 4.25 mil/mm3 (4.50-5.90); Red Cell Distribution Width 16.6 % (11.6-17.2); White Blood Count 16.5 th/mm3 (4.0-11.0)
[2018-01-10 05:45] LABS: Activated Partial Thrombo Time 44.3 sec (23.4-31.7); INR 1.3 Ratio; Prothrombin Time 12.7 sec (9.8-11.6)
[2018-01-10 06:01] LABS: Alanine Aminotransferase 69 U/L (12-78); Alkaline Phosphatase 141 U/L (45-117); Anion Gap 12 meq/L (5-15); Aspartate Aminotransferase 78 U/L (15-37); Blood Urea Nitrogen 34 mg/dL (7-18); Calcium 7.2 mg/dL (8.5-10.1); Carbon Dioxide 18.7 meq/L (21.0-32.0); Chloride 110 meq/L (98-107); Creatine Kinase 289 U/L (39-308); Glomerular Filtration Rate 38 mL/min (>89); Glucose,Random 133 mg/dL (74-106); Magnesium 1.6 mg/dL (1.5-2.5); Phosphorus 2.9 mg/dL (2.5-4.9); Potassium 3.6 meq/L (3.5-5.1); Sodium 141 meq/L (136-145); Total Protein 6.7 g/dL (6.4-8.2)
[2018-01-10 06:04] LABS: Troponin I 8.52 ng/mL (0.02-0.05)
[2018-01-10 06:22] LABS: Creatine Kinase MB 25.4 ng/mL (0.5-3.6)
[2018-01-10] MEDS: Chlorhexidine 0.12% Oral Kit 15 ML UDC OROPHARYNG SCH ×2 (09:51→20:17)
[2018-01-10] MEDS: Polyethylene Glycol 3350 17 GM Packet PO SCH ×2 (09:52→20:17)
[2018-01-10] MEDS: Famotidine PF Inj 20 MG/2 ML Vial IV.PUSH SCH ×2 (09:52→20:18)
[2018-01-10] MEDS: Senna/Docusate Sodium 8.6/50 MG Tablet PO SCH ×2 (09:52→20:18)
[2018-01-10] MEDS ORDERED: Vancomycin Inj 1,750 MG in Sodium Chlor 0.9% Inj 500 ML IV.SIG SCH (10:00)
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
[2018-01-10] MEDS: DOPamine 800 MG/500 ML Premix 800 MG/500 ML PLAST..BAG IV.CONT PRN (12:30)
[2018-01-10] MEDS: fentaNYL 10 mcg/mL Premix Drip 2,500 MCG/250 ML BAG IV.SIG PRN (14:30)
[2018-01-10 14:38] LABS: Creatine Kinase 202 U/L (39-308)
[2018-01-10 14:46] LABS: Troponin I 5.64 ng/mL (0.02-0.05)
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
[2018-01-10 17:10] LABS: ABG Base Excess -5.5 mmol/L (-2-2); ABG PCO2 33 mmHg (38-42); ABG PO2 67 mmHG (61-120)
[2018-01-10] MEDS: Heparin Drip 25,000 UNIT/250 ML BAG IV.CONT PRN (22:15)
[2018-01-11] MEDS: Oral Hygiene Kit OROPHARYNG SCH ×4 (00:52→16:22)
[2018-01-11] MEDS ORDERED: Amiodarone Inj 150 MG in Dextrose 5% in Water Inj 97 ML IV.SIG ONE ×2 (01:32)
--- NOTE | 2018-01-11 01:36 | P.PCN ---
Date of procedure: 01/11/18 Procedure: Date: 01/11/18 Procedure: Electrical cardioversion Indication: Atrial fibrillation with RVR Details of procedure: Patient developed atrial fibrillation with RVR with rate in the 150s. He had worsening hypotension. He was sedated on fentanyl 60 mcg/h and Versed 5 mg/h. I performed synchronized cardioversion at 100 J and he converted to sinus tachycardia. Administered amiodarone 150 mg IV and initiated amiodarone drip in attempt to maintain sinus rhythm.
[2018-01-11] MEDS: Insulin NovoLIN Regular Correctional Sugar Inj SQ SCH ×4 (03:24→17:47)
[2018-01-11 04:39] LABS: Anion Gap 12 meq/L (5-15); Blood Urea Nitrogen 36 mg/dL (7-18); Calcium 7.4 mg/dL (8.5-10.1); Carbon Dioxide 20.8 meq/L (21.0-32.0); Chloride 107 meq/L (98-107); Creatine Kinase 178 U/L (39-308); Glomerular Filtration Rate 32 mL/min (>89); Glucose,Random 116 mg/dL (74-106); Magnesium 1.5 mg/dL (1.5-2.5); Potassium 3.9 meq/L (3.5-5.1); Sodium 140 meq/L (136-145)
[2018-01-11 04:45] LABS: Troponin I 2.98 ng/mL (0.02-0.05)
[2018-01-11 05:04] LABS: Creatine Kinase MB 4.4 ng/mL (0.5-3.6)
[2018-01-11 05:06] LABS: Total Protein 6.8 g/dL (6.4-8.2)
[2018-01-11 05:19] LABS: ABG Base Excess -7.9 mmol/L (-2-2); ABG PCO2 30 mmHg (38-42); ABG PO2 77 mmHG (61-120)
[2018-01-11] MEDS: Chlorhexidine Gluconate 2% 1 Pack (2 Cloths) TOPICAL SCH (06:05)
[2018-01-11 06:48] LABS: Activated Partial Thrombo Time 46.2 sec (23.4-31.7); INR 1.5 Ratio
[2018-01-11 07:09] LABS: Baso # (Auto) 0.1 th/mm3 (0.0-0.2); Baso % (Auto) 0.6 % (0.0-2.0); Eos % (Auto) 0.1 % (0.0-4.0); Hematocrit 38.1 % (39.0-51.0); Hemoglobin 12.4 gm/dL (13.0-17.0); Lymph # (Auto) 1.3 th/mm3 (1.0-4.8); Lymph % (Auto) 5.9 % (9.0-44.0); Mean Corpuscular HGB Conc 32.7 % (32.0-36.0); Mean Corpuscular Volume 94.7 fL (80.0-100.0); Mean Platelet Volume 8.5 fL (7.0-11.0); Mono # (Auto) 2.6 th/mm3 (0.0-0.9); Mono % (Auto) 11.8 % (0.0-8.0); Neut # (Auto) 18.3 th/mm3 (1.8-7.7); Neut % (Auto) 81.6 % (16.0-70.0); Platelet Count 305 th/mm3 (150-450); Red Blood Count 4.02 mil/mm3 (4.50-5.90); White Blood Count 22.4 th/mm3 (4.0-11.0)
[2018-01-11 07:37] LABS: Alanine Aminotransferase 47 U/L (12-78); Albumin 2.6 g/dL (3.4-5.0); Alkaline Phosphatase 104 U/L (45-117); Anion Gap 13 meq/L (5-15); Aspartate Aminotransferase 35 U/L (15-37); Blood Urea Nitrogen 38 mg/dL (7-18); Calcium 7.5 mg/dL (8.5-10.1); Carbon Dioxide 18.2 meq/L (21.0-32.0); Chloride 107 meq/L (98-107); Creatine Kinase 200 U/L (39-308); Glomerular Filtration Rate 28 mL/min (>89); Glucose,Random 166 mg/dL (74-106); Magnesium 1.5 mg/dL (1.5-2.5); Phosphorus 4.6 mg/dL (2.5-4.9); Potassium 4.2 meq/L (3.5-5.1); Sodium 138 meq/L (136-145); Total Protein 6.6 g/dL (6.4-8.2)
--- NOTE | 2018-01-11 07:44 | P.PNCA ---
Subjective Interval history: intubated/sedated Medications and Allergies Active Medications: Active Medications Acetaminophen (Tylenol) 650 mg PO Q6H PRN PRN Reason: TEMPERATURE > 101 F Albuterol (Duoneb Neb (Prn)) 1 ampul NEB Q2HR NEB PRN PRN Reason: WHEEZING Albuterol (Duoneb Neb (Shreyas)) 1 ampul NEB Q6HR NEB [facility] Last Admin: 01/11/18 03:49 Dose: 1 ampul Aspirin (Aspirin Chew) 81 mg PO DAILY [facility] Last Admin: 01/10/18 09:51 Dose: 81 mg Bisacodyl (Dulcolax Supp) 10 mg RECTAL DAILY PRN PRN Reason: if no BM in last 24h Chlorhexidine Gluconate (Peridex 0.12% Oral Kit) 15 ml OROPHARYNG BID@0800, 2000 [facility] Last Admin: 01/10/18 20:17 Dose: 15 ml Chlorhexidine Gluconate (Chlorhexidine 2% Cloth) 3 pack TOPICAL DAILY@0400 [facility] Stop: 01/15/18 03:59 Last Admin: 01/11/18 06:05 Dose: 3 pack Chlorhexidine Gluconate (Chlorhexidine 2% Cloth) 3 pack TOPICAL DAILY@0400 PRN PRN Reason: Extra cloth needed Stop: 01/15/18 03:59 Dextrose (D50w Vial) 50 ml IV.PUSH UNSCH PRN PRN Reason: PER HYPOGLYCEMIA PROTOCOL Famotidine (Pepcid Pf Inj) 10 mg IV.PUSH Q12HR [facility] Last Admin: 01/10/18 20:18 Dose: 10 mg Glucagon (Glucagon Inj) 1 mg OTHER PRN PRN PRN Reason: for Hypoglycemia Protocol Fentanyl (Fentanyl 10 Mcg/Ml Premix Drip) 2,500 mcg in 250 mls @ 5 mls/hr IV.SIG TITRATE PRN; Protocol PRN Reason: Per Protocol Last Admin: 01/10/18 14:30 Dose: 100 mcg/hr, 10 mls/hr Midazolam HCl (Versed Inj) 50 mg in 50 mls @ 2 mls/hr IV.CONT TITRATE PRN; Protocol PRN Reason: Per Protocol Last Admin: 01/10/18 16:30 Dose: 3 mg/hr, 3 mls/hr Norepinephrine Bitartrate (Levophed-Dextrose 4 Mg/250 Ml Drip) 4 mg in 250 mls @ 7.5 mls/hr IV.SIG TITRATE PRN; Protocol PRN Reason: Per Protocol Last Admin: 01/11/18 05:06 Dose: 5 mcg/min, 18.75 mls/hr Dopamine HCl/Dextrose (Dopamine 800 Mg/500 Ml Premix) 800 mg in 500 mls @ 11.25 mls/hr IV.CONT TITRATE PRN; Protocol PRN Reason: Per Protocol Last Titration: 01/10/18 17:30 Dose: 0 mcg/kg/min, 0 mls/hr Aztreonam 1,000 mg/ Sodium (Chloride) 100 mls @ 200 mls/hr IV.SIG Q8H [facility] Last Admin: 01/11/18 06:04 Dose: 200 mls/hr Heparin Sodium/Dextrose (Heparin/D5w 25,000 U/250 Ml) 25,000 unit in 250 mls @ 0 mls/hr IV.CONT TITRATE PRN; Protocol PRN Reason: Per Protocol Last Admin: 01/10/18 22:15 Dose: 1,000 units/hr, 10 mls/hr Magnesium Sulfate 2 gm/ Sodium (Chloride) 100 mls @ 50 mls/hr IV.SIG UNSCH PRN PRN Reason: For Magnesium 1.2 - 1.6 mg/dL Metronidazole/Sodium Chloride (Flagyl 500 Mg Inj) 100 mls @ 100 mls/hr IV.SIG Q6H [facility] Last Admin: 01/11/18 06:04 Dose: 100 mls/hr Potassium Chloride (Kcl 40 Meq Premix Inj) 40 meq in 100 mls @ 25 mls/hr IV.SIG Q2H PRN PRN Reason: For Potassium 2.8 - 3.2 mEq/L Potassium Chloride (Kcl 20 Meq Premix Inj) 20 meq in 100 mls @ 50 mls/hr IV.SIG Q2H PRN PRN Reason: For Potassium 3.3 - 3.5 mEq/L Potassium Chloride (Kcl 40 Meq Premix Inj) 40 meq in 100 mls @ 25 mls/hr IV.SIG UNSCH PRN PRN Reason: For Potassium 3.3 - 3.5 mEq/L Potassium Phosphate 30 mmol/ (Sodium Chloride) 260 mls @ 42 mls/hr IV.SIG UNSCH PRN PRN Reason: SEE LABEL COMMENTS Sodium Phosphate 30 mmol/ (Sodium Chloride) 260 mls @ 42 mls/hr IV.SIG UNSCH PRN PRN Reason: For Phosphorus < 2.5 mg/dL Magnesium Sulfate 4 gm/ Sodium (Chloride) 100 mls @ 50 mls/hr IV.SIG UNSCH PRN PRN Reason: For Magnesium 0.9 - 1.1 mg/dL Potassium Chloride (Kcl 20 Meq Premix Inj) 20 meq in 100 mls @ 50 mls/hr IV.SIG Q2H PRN PRN Reason: For Potassium 2.8 - 3.2 mEq/L Amiodarone HCl 450 mg/ (Dextrose) 250 mls @ 33.33 mls/hr IV.CONT TITRATE PRN; Protocol PRN Reason: Per Protocol Last Admin: 01/11/18 03:23 Dose: 1 mg/min, 33.33 mls/hr Insulin Human Regular (Novolin R Correctional Sugar Inj) 0 units SQ Q6HR [facility]; Protocol Last Admin: 01/11/18 07:30 Dose: Not Given Lactulose (Lactulose Liq) 30 ml PO BID [facility] Last Admin: 01/10/18 20:17 Dose: 30 ml Magnesium Oxide (Mag-Ox) 800 mg PO UNSCH PRN PRN Reason: For Magnesium 1.2 - 1.6 mg/dL Miscellaneous Information ([facility] Ordered Lab Info) 0 each OTHER ONCE ONE Stop: 01/12/18 09:46 Miscellaneous Medication () 1 each OROPHARYNG 0000,0400,1200,1600 [facility] Last Admin: 01/11/18 06:04 Dose: 1 each Ondansetron HCl (Zofran Inj) 4 mg IV.PUSH Q6H PRN PRN Reason: NAUSEA OR VOMITING Polyethylene Glycol (Miralax) 17 gm PO BID [facility] Last Admin: 01/10/18 20:17 Dose: 17 gm Potassium Bicarb/Potassium Chloride (K-Lyte Cl Eff) 50 meq PO UNSCH PRN PRN Reason: For Potassium 3.3 - 3.5 mEq/L Potassium Phosphate (K-Phos Original) 2,000 mg PO Q4H PRN PRN Reason: Phosphorus Less Than 2.5 mg/dL Potassium Phosphate (K-Phos Original) 2,000 mg PO UNSCH PRN PRN Reason: SEE LABEL COMMENTS Senna/Docusate Sodium (Merari-Colace) 1 tab PO BID [facility] Last Admin: 01/10/18 20:18 Dose: 1 tab Sodium Chloride (Ns Flush) 2 ml IV.FLUSH UNSCH PRN PRN Reason: FLUSH AFTER USING IV ACCESS Sodium Chloride (Ns Flush) 2 ml IV.FLUSH UNSCH PRN PRN Reason: FLUSH AFTER USING IV ACCESS Terbutaline Sulfate (Brethine Inj) 1 mg SQ ONCE PRN PRN Reason: Extravasation Allergies Allergy/AdvReac Type Severity Reaction Status Date / Time lorazepam Allergy Severe Confusion Verified 01/09/18 11:21 morphine Allergy Severe Confusion Verified 01/09/18 11:21 penicillin G Allergy Mild UNKNOWN Verified 01/09/18 11:21 clonazepam Allergy Unknown confusion Verified 01/09/18 11:21 Home Medications Medication Instructions Recorded Confirmed Type Eliquis 01/09/18 History Physical Exam Vital signs: Vital Signs 01/10/18 07:45 01/10/18 07:55 01/10/18 08:00 Temperature Pulse Rate 77 75 Respiratory Rate 22 22 22 Blood Pressure 99/54 L 98/54 L Pulse Oximetry 94 L 97 96 01/10/18 08:15 01/10/18 08:30 01/10/18 08:45 Temperature Pulse Rate 76 75 75 Respiratory Rate 22 22 22 Blood Pressure 100/55 L 104/57 L 100/56 L Pulse Oximetry 97 98 98 01/10/18 08:57 01/10/18 08:58 01/10/18 09:00 Temperature Pulse Rate 79 80 Respiratory Rate 12 12 Blood Pressure 121/63 Pulse Oximetry 92 L 90 L 01/10/18 09:15 01/10/18 09:30 01/10/18 09:45 Temperature Pulse Rate 79 80 82 Respiratory Rate 15 13 16 Blood Pressure 108/58 L 106/59 L 89/54 L Pulse Oximetry 93 L 93 L 93 L 01/10/18 10:00 01/10/18 10:15 01/10/18 10:30 Temperature Pulse Rate 84 82 82 Respiratory Rate 17 17 15 Blood Pressure 108/57 L 87/49 L 101/55 L Pulse Oximetry 93 L 92 L 93 L 01/10/18 10:45 01/10/18 11:00 01/10/18 11:15 Temperature Pulse Rate 82 83 82 Respiratory Rate 15 14 15 Blood Pressure 100/56 L 96/55 L 94/51 L Pulse Oximetry 93 L 93 L 94 L 01/10/18 11:17 01/10/18 11:30 01/10/18 11:45 Temperature Pulse Rate 82 83 Respiratory Rate 14 16 16 Blood Pressure 96/52 L 89/53 L Pulse Oximetry 94 L 95 95 01/10/18 12:00 01/10/18 12:15 01/10/18 12:30 Temperature Pulse Rate 81 83 83 Respiratory Rate 14 17 17 Blood Pressure 110/58 L 107/57 L 108/55 L Pulse Oximetry 94 L 94 L 94 L 01/10/18 12:45 01/10/18 13:00 01/10/18 13:15 Temperature Pulse Rate 83 81 81 Respiratory Rate 15 17 16 Blood Pressure 104/58 L 106/55 L 106/59 L Pulse Oximetry 94 L 95 94 L 01/10/18 13:30 01/10/18 13:45 01/10/18 14:00 Temperature Pulse Rate 82 84 84 Respiratory Rate 21 17 20 Blood Pressure 101/59 L 105/59 L 97/53 L Pulse Oximetry 93 L 91 L 91 L 01/10/18 14:15 01/10/18 14:22 01/10/18 14:30 Temperature Pulse Rate 90 92 H 90 Respiratory Rate 26 H 20 18 Blood Pressure 102/55 L 102/58 L Pulse Oximetry 91 L 91 L 01/10/18 14:45 01/10/18 15:00 01/10/18 15:15 Temperature Pulse Rate 86 88 89 Respiratory Rate 18 19 18 Blood Pressure 99/57 L 101/56 L 101/57 L Pulse Oximetry 91 L 91 L 92 L 01/10/18 15:30 01/10/18 15:45 01/10/18 16:00 Temperature Pulse Rate 90 91 H 91 H Respiratory Rate 18 19 18 Blood Pressure 102/58 L 98/57 L 98/55 L Pulse Oximetry 92 L 93 L 93 L 01/10/18 16:15 01/10/18 16:30 01/10/18 16:45 Temperature Pulse Rate 91 H 91 H 91 H Respiratory Rate 18 18 18 Blood Pressure 99/56 L 96/53 L 100/59 L Pulse Oximetry 93 L 93 L 92 L 01/10/18 17:00 01/10/18 17:15 01/10/18 17:30 Temperature Pulse Rate 92 H 91 H 93 H Respiratory Rate 16 18 15 Blood Pressure 103/57 L 96/51 L 87/53 L Pulse Oximetry 92 L 93 L 94 L 01/10/18 17:45 01/10/18 18:00 01/10/18 18:15 Temperature Pulse Rate 91 H 92 H 92 H Respiratory Rate 17 18 18 Blood Pressure 107/61 110/64 108/63 Pulse Oximetry 94 L 97 98 01/10/18 18:30 01/10/18 18:45 01/10/18 19:00 Temperature Pulse Rate 92 H 93 H 93 H Respiratory Rate 18 17 18 Blood Pressure 108/61 103/59 L 102/57 L Pulse Oximetry 97 97 98 01/10/18 19:15 01/10/18 19:30 01/10/18 19:33 Temperature Pulse Rate 93 H 95 H 96 H Respiratory Rate 17 17 20 Blood Pressure 101/60 99/60 L Pulse Oximetry 96 95 96 01/10/18 19:45 01/10/18 20:00 01/10/18 20:15 Temperature 98.3 F Pulse Rate 96 H 99 H 100 H Respiratory Rate 17 17 17 Blood Pressure 100/60 97/56 L 89/53 L Pulse Oximetry 96 97 94 L 01/10/18 20:30 01/10/18 20:45 01/10/18 21:00 Temperature Pulse Rate 100 H 101 H 103 H Respiratory Rate 16 16 15 Blood Pressure 89/51 L 91/53 L 89/54 L Pulse Oximetry 96 96 96 01/10/18 21:15 01/10/18 21:30 01/10/18 21:45 Temperature Pulse Rate 103 H 103 H 102 H Respiratory Rate 15 15 16 Blood Pressure 93/55 L 91/56 L 101/59 L Pulse Oximetry 96 93 L 90 L 01/10/18 22:00 01/10/18 22:15 01/10/18 22:23 Temperature Pulse Rate 102 H 101 H 139 H Respiratory Rate 17 18 19 Blood Pressure 98/57 L 108/58 L 109/55 L Pulse Oximetry 90 L 92 L 90 L 01/10/18 22:30 01/10/18 22:45 01/10/18 23:00 Temperature Pulse Rate 150 H 146 H 146 H Respiratory Rate 18 18 18 Blood Pressure 101/56 L 99/57 L 104/57 L Pulse Oximetry 90 L 91 L 92 L 01/10/18 23:15 01/10/18 23:30 01/10/18 23:45 Temperature Pulse Rate 141 H 134 H 133 H Respiratory Rate 20 20 21 Blood Pressure 97/53 L 90/52 L 89/54 L Pulse Oximetry 94 L 95 97 01/10/18 23:51 01/11/18 00:00 01/11/18 00:15 Temperature 99.5 F Pulse Rate 131 H 149 H 163 H Respiratory Rate 21 21 22 Blood Pressure 89/53 L 96/58 L 96/55 L Pulse Oximetry 97 92 L 90 L 01/11/18 00:30 01/11/18 00:45 01/11/18 01:00 Temperature Pulse Rate 148 H 153 H 151 H Respiratory Rate 21 22 18 Blood Pressure 101/55 L 100/55 L 100/61 Pulse Oximetry 92 L 92 L 92 L 01/11/18 01:15 01/11/18 01:21 01/11/18 01:30 Temperature Pulse Rate 151 H 105 H Respiratory Rate 19 18 19 Blood Pressure 91/51 L 86/52 L Pulse Oximetry 92 L 92 L 01/11/18 01:45 01/11/18 02:00 01/11/18 02:15 Temperature Pulse Rate 125 H 116 H 119 H Respiratory Rate 18 20 19 Blood Pressure 126/68 101/59 L 129/66 Pulse Oximetry 94 L 95 95 01/11/18 02:30 01/11/18 02:45 01/11/18 03:00 Temperature Pulse Rate 123 H 123 H 112 H Respiratory Rate 20 19 19 Blood Pressure 128/64 137/68 102/57 L Pulse Oximetry 95 96 98 01/11/18 03:15 01/11/18 03:30 01/11/18 03:45 Temperature Pulse Rate 94 H 93 H 93 H Respiratory Rate 20 21 21 Blood Pressure 94/55 L 93/56 L 94/58 L Pulse Oximetry 97 97 97 01/11/18 03:49 01/11/18 04:00 01/11/18 04:15 Temperature 97.7 F Pulse Rate 93 H 93 H 92 H Respiratory Rate 21 21 22 Blood Pressure 100/58 L 99/59 L Pulse Oximetry 97 97 01/11/18 04:30 01/11/18 04:40 01/11/18 04:45 Temperature Pulse Rate 92 H 91 H Respiratory Rate 22 20 21 Blood Pressure 100/61 101/61 Pulse Oximetry 98 97 99 01/11/18 05:00 01/11/18 05:15 01/11/18 05:30 Temperature Pulse Rate 91 H 91 H 91 H Respiratory Rate 23 23 23 Blood Pressure 109/62 109/63 110/62 Pulse Oximetry 99 98 98 01/11/18 05:45 01/11/18 06:00 01/11/18 06:15 Temperature Pulse Rate 91 H 69 90 Respiratory Rate 23 23 23 Blood Pressure 114/64 112/64 113/59 L Pulse Oximetry 99 98 98 01/11/18 06:46 01/11/18 07:00 01/11/18 07:15 Temperature Pulse Rate 94 H 93 H 90 Respiratory Rate 36 H 29 H 27 H Blood Pressure 126/60 113/58 L 116/59 L Pulse Oximetry 89 L 90 L 93 L Intake & Output 01/10/18 01/11/18 01/11/18 18:59 06:59 18:59 Intake Total 1250 / 1250 1050 / 1050 Output Total 1300 / 1300 400 / 400 Balance -50 / -50 650 / 650 Weight 100.5 kg Intake: IV 1250 / 1250 1050 / 1050 DOPamine 800 MG/500 ML Premix 500 / 500 800 mg In 500 ml @ 3 MCG/KG/MIN 11.25 mls/hr IV.CONT TITRATE PRN Rx#:[id number] Heparin/D5W 25,000 U/250 mL 25, 250 / 250 000 unit In 250 ml @ Per Protocol IV.CONT TITRATE PRN Rx #:[id number] Versed Inj 50 mg In 50 ml @ 2 50 / 50 MG/HR 2 mls/hr IV.CONT TITRATE PRN Rx#:[id number] Azactam Inj 1,000 MG In NS Inj 200 / 200 100 ML @ 200 mls/hr IV.SIG Q8H SHREYAS Rx#:[id number] Levophed-Dextrose 4 mg/250 ml 250 / 250 500 / 500 Drip 4 mg In 250 ml @ 2 MCG/MIN 7.5 mls/hr IV.SIG TITRATE PRN Rx#:[id number] 10 mcg/mL Premix Drip 250 / 250 2,500 mcg In 250 ml @ 50 MCG/HR 5 mls/hr IV.SIG TITRATE PRN Rx #:[id number] Flagyl 500 MG Inj 100 ML @ 100 200 / 200 100 / 100 mls/hr IV.SIG Q6H [facility] Rx#: [id number] Output: Urine Amount (Catheter) 1300 / 1300 400 / 400 Indwelling Urethral Catheter 1300 / 1300 400 / 400 Narrative: Resp rate 30 - opens eyes and tracks, Fentanyl turned back on due to high resp rate On 19 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 Flotrac C.O. OK No JVD Chest severely coarse BS bilaterally. Thick white secretions per nurse CV S1S2 RRR 2/6 MYLES Abd obes sodt Ext: diminished perfusion, no significant edema - Urinary Catheter Management Indwelling Urethral Catheter Cath placed during this visit: yes Reason for continuing: Acute urinary retention Insertion date: 01/09/18 Insertion time: 21:45 Results 01/11/18 06:15 01/10/18 22:55 Cardiac Enzymes 01/09/18 01/09/18 01/09/18 Range/Units 15:25 15:25 20:50 AST 67 H (15-37) U/L CK-MB (CK-2) 11.0 H 34.9 H (0.5-3.6) ng/mL Troponin I 2.83 H* 9.29 H* (0.02-0.05) ng/mL B-Natriuretic Peptide 1142 H (0-100) pg/mL 01/09/18 01/10/18 01/10/18 Range/Units 22:45 04:30 04:30 AST 78 H (15-37) U/L CK-MB (CK-2) 25.4 H (0.5-3.6) ng/mL Troponin I 8.51 H* 8.52 H* (0.02-0.05) ng/mL B-Natriuretic Peptide 2057 H (0-100) pg/mL 01/10/18 01/10/18 Range/Units 12:50 22:55 AST (15-37) U/L CK-MB (CK-2) 11.0 H 4.4 H (0.5-3.6) ng/mL Troponin I 5.64 H* 2.98 H* (0.02-0.05) ng/mL B-Natriuretic Peptide (0-100) pg/mL Coagulation 01/09/18 01/09/18 01/09/18 Range/Units 15:25 15:25 22:45 PT 12.0 H (9.8-11.6) sec APTT 33.0 H 33.7 H (23.4-31.7) sec B-Natriuretic Peptide 1142 H (0-100) pg/mL 01/10/18 01/10/18 01/10/18 Range/Units 04:30 04:30 12:50 PT 12.7 H (9.8-11.6) sec APTT 44.3 H D 41.3 H (23.4-31.7) sec B-Natriuretic Peptide 2057 H (0-100) pg/mL 01/11/18 Range/Units 06:15 PT 15.0 H (9.8-11.6) sec APTT 46.2 H (23.4-31.7) sec B-Natriuretic Peptide (0-100) pg/mL CBC 01/09/18 01/10/18 01/11/18 Range/Units 15:25 04:30 06:15 WBC 12.6 H D 16.5 H 22.4 H (4.0-11.0) th/mm3 RBC 4.73 4.25 L 4.02 L (4.50-5.90) mil/mm3 Hgb 14.8 13.3 12.4 L (13.0-17.0) gm/dL Hct 46.1 39.9 38.1 L (39.0-51.0) % Plt Count 257 288 305 (150-450) th/mm3 Neut # (Auto) 8.4 H 14.3 H 18.3 H (1.8-7.7) th/mm3 Lymph # (Auto) 2.8 0.7 L 1.3 (1.0-4.8) th/mm3 [place] # (Auto) 0.8 1.4 H 2.6 H (0.0-0.9) th/mm3 Eos # (Auto) 0.1 0.0 0.0 (0.0-0.4) th/mm3 Baso # (Auto) 0.5 H 0.0 0.1 (0.0-0.2) th/mm3 Comprehensive Metabolic Panel 01/09/18 01/10/18 01/10/18 Range/Units 15:25 04:30 22:55 Sodium 137 141 140 (136-145) meq/L Potassium 4.8 3.6 D 3.9 (3.5-5.1) meq/L Chloride 104 110 H 107 (98-107) meq/L Carbon Dioxide 15.7 L 18.7 L 20.8 L (21.0-32.0) meq/L BUN 29 H 34 H 36 H (7-18) mg/dL Creatinine 1.80 H 1.81 H 2.09 H (0.60-1.30) mg/dL Calcium 8.5 7.2 L* D 7.4 L* (8.5-10.1) mg/dL AST 67 H 78 H (15-37) U/L ALT 53 69 (12-78) U/L Alkaline Phosphatase 118 H 141 H (45-117) U/L Total Protein 7.8 6.7 D 6.8 (6.4-8.2) g/dL Albumin 3.5 3.0 L (3.4-5.0) g/dL Intake and Output 01/10/18 01/11/18 01/11/18 22:59 06:59 14:59 Intake Total 750 / 750 800 / 800 Output Total 1300 / 1300 400 / 400 Balance -550 / -550 400 / 400 Intake: IV 750 / 750 800 / 800 Heparin/D5W 25,000 U/250 mL 25, 250 / 250 000 unit In 250 ml @ Per Protocol IV.CONT TITRATE PRN Rx #:[id number] Versed Inj 50 mg In 50 ml @ 2 50 / 50 MG/HR 2 mls/hr IV.CONT TITRATE PRN Rx#:[id number] Azactam Inj 1,000 MG In NS Inj 200 / 200 100 ML @ 200 mls/hr IV.SIG Q8H [facility]RE[facility] Rx#:[id number] Levophed-Dextrose 4 mg/250 ml 250 / 250 500 / 500 Drip 4 mg In 250 ml @ 2 MCG/MIN 7.5 mls/hr IV.SIG TITRATE PRN Rx#:[id number] Flagyl 500 MG Inj 100 ML @ 100 200 / 200 100 / 100 mls/hr IV.SIG Q6H [facility]RE[facility] Rx#: [id number] Output: Urine Amount (Catheter) 1300 / 1300 400 / 400 Indwelling Urethral Catheter 1300 / 1300 400 / 400 Other: Weight 100.5 kg - Imaging and Cardiology Imaging: Impressions Chest X-Ray 01/09/18 15:24 CONCLUSION: 1. The endotracheal tube appears to be in good position. No pneumothorax. 2. Mild atelectasis in the left midlung. Abdomen/Pelvis CT 01/09/18 15:25 CONCLUSION: 1. Bibasilar consolidating airspace disease 2. No evidence of traumatic soft tissue injury. 3. Bilateral renal cysts. 4. Fat-containing left inguinal hernia. 5. Status post right hip replacement. 6. No evidence of acute fracture. Cervical Spine CT 01/09/18 15:25 CONCLUSION: 1. Mild degenerative anterolisthesis at C4-5 secondary to facet arthropathy. 2. No evidence of acute bony trauma, traumatic listhesis or disc herniation. Chest CT 01/09/18 15:25 CONCLUSION: 1. Bilateral posterior subsegmental airspace disease predominantly within the lower lobes. 2. No evidence of pneumothorax or significant pleural fluid accumulation. 3. Tip of the endotracheal tube projects into the right mainstem bronchus. 4. Postsurgical changes in the cardiomediastinal following open heart surgery and bypass. 5. No evidence of mediastinal hematoma or vascular injury. 6. Bilateral anterior rib fractures. Head CT 01/09/18 15:25 CONCLUSION: 1. No evidence of acute infarct, hemorrhage, mass or edema. 2. No evidence of acute fracture. . Chest X-Ray 01/10/18 05:00 CONCLUSION: Worsening in aeration Assessment and Plan - Assessment (1) Pulmonary hypertension Code(s): I27.20 - Pulmonary hypertension, unspecified Status: Acute (2) Elevated troponin Code(s): R74.8 - Abnormal levels of other serum enzymes Status: Acute (3) Acute kidney injury Code(s): N17.9 - Acute kidney failure, unspecified Status: Acute (4) Sudden cardiac arrest Code(s): I46.9 - Cardiac arrest, cause unspecified Status: Acute (5) Paroxysmal atrial fibrillation with rapid ventricular response Code(s): I48.0 - Paroxysmal atrial fibrillation Status: Acute (6) Left bundle branch block Code(s): I44.7 - Left bundle-branch block, unspecified Status: Acute (7) Coronary artery disease Code(s): I25.10 - Atherosclerotic heart disease of [place] coronary artery without angina pectoris Status: Acute - Plan 01/11/2018 Shock has worsened despite LVEF only mildly impaired. Required cardioversion for AF RVR. I would like to do a cardiac cath but rising creatinin/risk of renal failure. Lungs sound much worse ? CHF CXR pending. Labs and CXR pending.
[2018-01-11 07:52] LABS: ABG Base Excess 13.4 mmol/L (-2-2); ABG PCO2 39 mmHg (38-42); ABG PO2 191 mmHg (60-120)
[2018-01-11] MEDS: fentaNYL 10 mcg/mL Premix Drip 2,500 MCG/250 ML BAG IV.SIG PRN ×2 (08:00→18:51)
[2018-01-11 08:16] LABS: Lymphocytes 6 % (9-44); Monocytes 9 % (0-8); Platelet Estimate Normal (Normal); Platelet Morphology Normal (Normal)
[2018-01-11] MEDS: Famotidine PF Inj 20 MG/2 ML Vial IV.PUSH SCH ×2 (08:30→23:00)
[2018-01-11] MEDS: Chlorhexidine 0.12% Oral Kit 15 ML UDC OROPHARYNG SCH ×2 (08:30→23:00)
[2018-01-11] MEDS: Senna/Docusate Sodium 8.6/50 MG Tablet PO SCH ×2 (08:30→23:00)
[2018-01-11] MEDS: Polyethylene Glycol 3350 17 GM Packet PO SCH ×2 (08:31→23:00)
--- NOTE | 2018-01-11 09:29 | XR ---
EXAM DATE: 01/11/2018 9:16 AM EST AGE/SEX: 67 years / Male INDICATIONS: CHF CLINICAL DATA: This is the patient's initial encounter. Patient reports that signs and symptoms have been present for 1 week and indicates a pain score of Nonresponsive. MEDICAL/SURGICAL HISTORY: Cardiovascular disease. CABG. Mitral valve replaced [place] [facility] [place]. . FINDINGS: The endotracheal tubes in good position. The nasogastric tubes in satisfactory position. The patient is post median sternotomy and valvular replacement. The heart is normal in size. There is a small right basilar effusion and right basilar infiltrate. There is minimal effusion on th e left. The overall appearance of the pulmonary parenchyma is similar to previous exam. CONCLUSION: 1. Support equipment in satisfactory position. 2. Small basilar effusion and infiltrate on the right. 3. Stable compared to previous exam. Electronically signed by: Clemente Perez MD 01/11/2018 9:28 AM EST
[2018-01-11 09:44] LABS: Troponin I 3.32 ng/mL (0.02-0.05)
--- NOTE | 2018-01-11 12:42 | US ---
EXAM DATE: 01/11/2018 12:30 PM EST AGE/SEX: 67 years / Male INDICATIONS: Shortness of breath. CLINICAL DATA: This is the patient's initial encounter. Patient reports that signs and symptoms have been present for 1 day and indicates a pain score of Nonresponsive. MEDICAL/SURGICAL HISTORY: Congestive heart failure. Chronic obstructive pulmonary disease. Robert b. None. COMPARISON: [facility], CT CHEST W CONTRAST, 01/09/2018. . MEASUREMENTS: Skin To Parietal Pleura:__Inadequate fluid cm Skin To Max Safe Depth:__Inadequate fluid cm Estimated Fluid Volume:__Inadequate fluid cc Fluid Composition:__inadequate fluid FINDINGS: No marking was performed. CONCLUSION: 1. Trace fluid identified. 2. Adequate fluid for thoracentesis. Electronically signed by: Martin Palacios MD 01/11/2018 12:41 PM EST
[2018-01-11] MEDS: Vasopressin Inj 40 UNIT in Dextrose 5% in Water Inj 98 ML IV.CONT PRN ×2 (15:40)
[2018-01-11] MEDS ORDERED: Vancomycin Inj 1,250 MG in Sodium Chlor 0.9% Inj 250 ML IV.SIG ONE (16:03)
[2018-01-11] MEDS ORDERED: Vancomycin Consult Pharmacy OTHER PRN (16:15)
[2018-01-11] MEDS ORDERED: Vancomycin Inj 2,000 MG in Sodium Chlor 0.9% Inj 500 ML IV.SIG ONE (18:00)
--- NOTE | 2018-01-11 18:22 | ECG ---
Date Performed: 01/11/2018 Time Performed: 09:42:02 PTAGE: 67 years EKG: Sinus rhythm MARKED RIGHT AXIS DEVIATION RIGHT BUNDLE BRANCH BLOCK ST DEPRESSION, CONSIDER SUBENDOCARDIAL INJURY ABNORMAL ECG PREVIOUS TRACING : 01/09/2018 15.40 Since the previous tracing, no significant change noted DOCTOR: Jay Otoole Interpretating Date/Time 01/11/2018 18:21:04
[2018-01-11] MEDS: Midazolam 50 MG/50 ML Inj 50 MG/50 ML BAG IV.CONT PRN (18:53)
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
[2018-01-11 21:16] LABS: ABG Base Excess -11.7 mmol/L (-2-2); ABG PCO2 72 mmHg (38-42); ABG PO2 116 mmHG (61-120)
[2018-01-11 22:24] LABS: ABG Base Excess -11.3 mmol/L (-2-2); ABG PCO2 66 mmHg (38-42); ABG PO2 106 mmHG (61-120)
[2018-01-11] MEDS: Norepinephrine Inj 16 MG in Sodium Chlor 0.9% Inj 234 ML IV.SIG PRN (23:06)
[2018-01-11] MEDS: Heparin Drip 25,000 UNIT/250 ML BAG IV.CONT PRN (23:15)
[2018-01-12 00:15] LABS: ABG PCO2 56 mmHg (38-42); ABG PO2 83 mmHG (61-120)
[2018-01-12] MEDS: Sodium Bicarbonate 8.4% Inj 150 MEQ in Water for Inj, Sterile 850 ML IV.CONT SCH ×2 (00:53→17:29)
[2018-01-12] MEDS ORDERED: Phenylephrine Inj 160 MG in Dextrose 5% in Water Inj 484 ML IV.CONT PRN ×2 (01:13)
[2018-01-12] MEDS ORDERED: Hydrocortisone Sod Succinate 100 MG Vial ONE (02:52)
[2018-01-12] MEDS: Insulin NovoLIN Regular Correctional Sugar Inj SQ SCH ×4 (03:07→17:58)
[2018-01-12] MEDS: Oral Hygiene Kit OROPHARYNG SCH ×4 (03:08→17:30)
[2018-01-12] MEDS: Hydrocortisone Sod Succinate 100 MG Vial IV.PUSH SCH ×4 (03:10→21:48)
[2018-01-12] MEDS: Epoprostenol (30,000/mL) Neb 100 ML in Sodium Chlor 0.9% Inj 0 ML NEB SCH ×3 (03:52→14:11)
[2018-01-12] MEDS: Chlorhexidine Gluconate 2% 1 Pack (2 Cloths) TOPICAL SCH (03:53)
--- NOTE | 2018-01-12 04:15 | XR ---
EXAM DATE: 01/12/2018 4:06 AM EST AGE/SEX: 67 years / Male INDICATIONS: Shortness of breath. CLINICAL DATA: This is the patient's subsequent encounter. Patient reports that signs and symptoms h ave been present for 4 - 6 days and indicates a pain score of Nonresponsive. MEDICAL/SURGICAL HISTORY: . Cardiovascular disease. . CABG. Mitral valve replaced. COMPARISON: [facility], CHEST 1V SINGLE AP, 01/11/2018. . FINDINGS: Endotracheal tube is present in satisfactory position with tip several centimeters above the estrada. Nasogastric tube descends into the stomach. Hazy bilateral pleural parenchymal opacity is again noted , grossly stable on the right slightly worse on the left. Cardiac contours are unchanged. CONCLUSION: Slight interval worsening in aeration Electronically signed by: Rosendo Lang MD 01/12/2018 4:14 AM EST
[2018-01-12 05:27] LABS: ABG Base Excess -9.1 mmol/L (-2-2); ABG PCO2 37 mmHg (38-42); ABG PO2 83 mmHG (61-120)
[2018-01-12 06:09] LABS: Baso # (Auto) 0.1 th/mm3 (0.0-0.2); Baso % (Auto) 0.3 % (0.0-2.0); Eos % (Auto) 0.1 % (0.0-4.0); Hematocrit 37.6 % (39.0-51.0); Hemoglobin 12.3 gm/dL (13.0-17.0); Lymph # (Auto) 0.9 th/mm3 (1.0-4.8); Lymph % (Auto) 3.7 % (9.0-44.0); Mean Corpuscular HGB Conc 32.8 % (32.0-36.0); Mean Corpuscular Hemoglobin 31.6 pg (27.0-34.0); Mean Corpuscular Volume 96.5 fL (80.0-100.0); Mean Platelet Volume 8.7 fL (7.0-11.0); Mono # (Auto) 1.2 th/mm3 (0.0-0.9); Mono % (Auto) 4.8 % (0.0-8.0); Neut # (Auto) 22.1 th/mm3 (1.8-7.7); Neut % (Auto) 91.1 % (16.0-70.0); Platelet Count 207 th/mm3 (150-450); Red Cell Distribution Width 17.5 % (11.6-17.2); White Blood Count 24.3 th/mm3 (4.0-11.0)
[2018-01-12 06:19] LABS: INR 1.7 Ratio; Prothrombin Time 17.4 sec (9.8-11.6)
[2018-01-12 06:32] LABS: Albumin 2.3 g/dL (3.4-5.0); Calcium 6.6 mg/dL (8.5-10.1); Carbon Dioxide 19.1 meq/L (21.0-32.0); Magnesium 1.4 mg/dL (1.5-2.5); Phosphorus 4.9 mg/dL (2.5-4.9); Potassium 4.5 meq/L (3.5-5.1); Total Protein 6.3 g/dL (6.4-8.2); Vancomycin,Random 11.4 Comment
[2018-01-12] MEDS: Vasopressin Inj 40 UNIT in Dextrose 5% in Water Inj 98 ML IV.CONT PRN ×2 (06:52)
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
[2018-01-12] MEDS: Famotidine PF Inj 20 MG/2 ML Vial IV.PUSH SCH ×2 (08:04→21:48)
[2018-01-12] MEDS: Senna/Docusate Sodium 8.6/50 MG Tablet PO SCH ×2 (08:04→21:48)
[2018-01-12] MEDS: Chlorhexidine 0.12% Oral Kit 15 ML UDC OROPHARYNG SCH ×2 (08:04→22:16)
[2018-01-12] MEDS: Polyethylene Glycol 3350 17 GM Packet PO SCH ×2 (08:05→21:48)
[2018-01-12] MEDS ORDERED: Adenosine Inj 6 MG/2 ML Syringe IV.PUSH ONE (08:32)
[2018-01-12] MEDS ORDERED: Pharmacy Ordered Lab Info OTHER ONE (09:45)
--- NOTE | 2018-01-12 11:14 | ECG ---
Date Performed: 01/11/2018 Time Performed: 12:37:54 PTAGE: 67 years EKG: Atrial fibrillation with rapid v. response Anterior infarct - age undetermined Compared to previous tracing atrial fibrillation is new, right bundle branch block no longer noted Abnormal ECG PREVIOUS TRACING : 01/11/2018 09.42 DOCTOR: Mamadou Gutierrez Interpretating Date/Time 01/12/2018 11:12:58
[2018-01-12] MEDS: fentaNYL 10 mcg/mL Premix Drip 2,500 MCG/250 ML BAG IV.SIG PRN (11:24)
[2018-01-12 11:29] LABS: ABG Base Excess -8.9 mmol/L (-2-2); ABG PCO2 25 mmHg (38-42); ABG PO2 179 mmHG (61-120)
[2018-01-12 13:41] LABS: Albumin 2.1 g/dL (3.4-5.0); Calcium 6.7 mg/dL (8.5-10.1); Carbon Dioxide 16.8 meq/L (21.0-32.0); Magnesium 1.2 mg/dL (1.5-2.5); Phosphorus 3.2 mg/dL (2.5-4.9); Total Protein 5.8 g/dL (6.4-8.2)
--- NOTE | 2018-01-12 14:48 | P.CONPAL ---
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 (Auto) Baso % (Auto) Neut # (Auto) Lymph # (Auto) [place] # (Auto) Eos # (Auto) Baso # (Auto) WBC Differential Seg Neuts % (Manual) Band Neuts % (Manual) Lymphocytes % (Manual) Monocytes % (Manual) Abs Neuts (Manual) Differential Comment Platelet Estimate Platelet Morphology PT 12.7 H INR 1.3 APTT 44.3 H D Puncture Site Art line Patient Temperature 98.6 O2 Saturation 93 ABG pH 7.40 ABG pCO2 28 L ABG pO2 74 ABG HCO3 17 L ABG O2 Content 17.2 ABG Base Excess -6.9 L ABG Methemoglobin 1.6 Danny Test Hemoglobin 13.2 Carboxyhemoglobin 1.6 O2 Delivery Device Ventilator Liter Flow Vent Setting Ac/22/600/peep5 Inspired O2 50 Critical Value No Sodium Potassium Chloride Carbon Dioxide Anion Gap BUN Creatinine Estimated GFR POC Glucose 168 H Random Glucose Lactic Acid Calcium Prot Corrected Calcium Phosphorus Magnesium Total Bilirubin AST ALT Alkaline Phosphatase Total Creatine Kinase CK-MB (CK-2) CK-MB (CK-2) % Troponin I B-Natriuretic Peptide Total Protein Albumin Urine Color Urine Clarity Urine pH Ur Specific [place] Urine Protein Urine Glucose (UA) Urine Ketones Urine Occult Blood Urine Nitrate Urine Bilirubin Urine Urobilinogen Ur Leukocyte Esterase Urine RBC Urine WBC Granular Casts Urine Mucus Micro UA Comment Ur Microscopic Review Urine Culture Comments Nasal Screen MRSA (PCR) Random Vancomycin Adenovirus (PCR) Bordetella holmesii PCR B. pertussis DNA (PCR) B. paraper/bronch (PCR) Human Metapneumovir PCR Influenza A (RT-PCR) Influenza A (H1) PCR Influenza A (H3) PCR Influenza B (RT-PCR) Parainfluenza 1 (PCR) Parainfluenza 2 (PCR) Parainfluenza 3 (PCR) Parainfluenza 4 (PCR) RSV Type A (PCR) RSV Type B (PCR) Rhinovirus (PCR) 01/10/18 01/10/18 01/10/18 04:30 04:30 04:30 CBC w Diff WBC 16.5 H RBC 4.25 L Hgb 13.3 Hct 39.9 MCV 93.8 D MCH 31.2 MCHC 33.3 RDW 16.6 Plt Count 288 MPV 8.3 Prelim Diff (Auto) Neut % (Auto) 87.0 H Lymph % (Auto) 4.4 L [place] % (Auto) 8.4 H Eos % (Auto) 0.0 Baso % (Auto) 0.2 Neut # (Auto) 14.3 H Lymph # (Auto) 0.7 L [place] # (Auto) 1.4 H Eos # (Auto) 0.0 Baso # (Auto) 0.0 WBC Differential . Seg Neuts % (Manual) Band Neuts % (Manual) Lymphocytes % (Manual) Monocytes % (Manual) Abs Neuts (Manual) Differential Comment Auto diff final Platelet Estimate Platelet Morphology PT INR APTT Puncture Site Patient Temperature O2 Saturation ABG pH ABG pCO2 ABG pO2 ABG HCO3 ABG O2 Content ABG Base Excess ABG Methemoglobin Danny Test Hemoglobin Carboxyhemoglobin O2 Delivery Device Liter Flow Vent Setting Inspired O2 Critical Value Sodium 141 Potassium 3.6 D Chloride 110 H Carbon Dioxide 18.7 L Anion Gap 12 BUN 34 H Creatinine 1.81 H Estimated GFR 38 L POC Glucose Random Glucose 133 H Lactic Acid Calcium 7.2 L* D Prot Corrected Calcium 7.4 L* Phosphorus 2.9 Magnesium 1.6 Total Bilirubin 1.7 H AST 78 H ALT 69 Alkaline Phosphatase 141 H Total Creatine Kinase 289 CK-MB (CK-2) 25.4 H CK-MB (CK-2) % Troponin I 8.52 H* B-Natriuretic Peptide 2057 H Total Protein 6.7 D Albumin 3.0 L Urine Color Urine Clarity Urine pH Ur Specific [place] Urine Protein Urine Glucose (UA) Urine Ketones Urine Occult Blood Urine Nitrate Urine Bilirubin Urine Urobilinogen Ur Leukocyte Esterase Urine RBC Urine WBC Granular Casts Urine Mucus Micro UA Comment Ur Microscopic Review Urine Culture Comments Nasal Screen MRSA (PCR) Random Vancomycin Adenovirus (PCR) Bordetella holmesii PCR B. pertussis DNA (PCR) B. paraper/bronch (PCR) Human Metapneumovir PCR Influenza A (RT-PCR) Influenza A (H1) PCR Influenza A (H3) PCR Influenza B (RT-PCR) Parainfluenza 1 (PCR) Parainfluenza 2 (PCR) Parainfluenza 3 (PCR) Parainfluenza 4 (PCR) RSV Type A (PCR) RSV Type B (PCR) Rhinovirus (PCR) 01/10/18 01/10/18 01/10/18 05:11 12:50 12:50 CBC w Diff WBC RBC Hgb Hct MCV MCH MCHC RDW Plt Count MPV Prelim Diff (Auto) Neut % (Auto) Lymph % (Auto) [place] % (Auto) Eos % (Auto) Baso % (Auto) Neut # (Auto) Lymph # (Auto) [place] # (Auto) Eos # (Auto) Baso # (Auto) WBC Differential Seg Neuts % (Manual) Band Neuts % (Manual) Lymphocytes % (Manual) Monocytes % (Manual) Abs Neuts (Manual) Differential Comment Platelet Estimate Platelet Morphology PT INR APTT 41.3 H Puncture Site Art line Patient Temperature 98.6 O2 Saturation 94 ABG pH 7.45 H ABG pCO2 25 L ABG pO2 77 ABG HCO3 17 L ABG O2 Content 17.7 ABG Base Excess -6.0 L ABG Methemoglobin 1.5 Danny Test Hemoglobin 13.4 Carboxyhemoglobin 1.6 O2 Delivery Device Ventilator Liter Flow Vent Setting Ac/22/600/peep8 Inspired O2 50 Critical Value No Sodium Potassium Chloride Carbon Dioxide Anion Gap BUN Creatinine Estimated GFR POC Glucose Random Glucose Lactic Acid Calcium Prot Corrected Calcium Phosphorus Magnesium Total Bilirubin AST ALT Alkaline Phosphatase Total Creatine Kinase 202 CK-MB (CK-2) 11.0 H CK-MB (CK-2) % Troponin I 5.64 H* B-Natriuretic Peptide Total Protein Albumin Urine Color Urine Clarity Urine pH Ur Specific [place] Urine Protein Urine Glucose (UA) Urine Ketones Urine Occult Blood Urine Nitrate Urine Bilirubin Urine Urobilinogen Ur Leukocyte Esterase Urine RBC Urine WBC Granular Casts Urine Mucus Micro UA Comment Ur Microscopic Review Urine Culture Comments Nasal Screen MRSA (PCR) Random Vancomycin Adenovirus (PCR) Bordetella holmesii PCR B. pertussis DNA (PCR) B. paraper/bronch (PCR) Human Metapneumovir PCR Influenza A (RT-PCR) Influenza A (H1) PCR Influenza A (H3) PCR Influenza B (RT-PCR) Parainfluenza 1 (PCR) Parainfluenza 2 (PCR) Parainfluenza 3 (PCR) Parainfluenza 4 (PCR) RSV Type A (PCR) RSV Type B (PCR) Rhinovirus (PCR) 01/10/18 01/10/18 01/10/18 17:00 18:00 22:55 CBC w Diff WBC RBC Hgb Hct MCV MCH MCHC RDW Plt Count MPV Prelim Diff (Auto) Neut % (Auto) Lymph % (Auto) [place] % (Auto) Eos % (Auto) Baso % (Auto) Neut # (Auto) Lymph # (Auto) [place] # (Auto) Eos # (Auto) Baso # (Auto) WBC Differential Seg Neuts % (Manual) Band Neuts % (Manual) Lymphocytes % (Manual) Monocytes % (Manual) Abs Neuts (Manual) Differential Comment Platelet Estimate Platelet Morphology PT INR APTT Puncture Site Art line Patient Temperature 98.6 O2 Saturation 91 ABG pH 7.38 ABG pCO2 33 L ABG pO2 67 ABG HCO3 19 L ABG O2 Content 16.0 ABG Base Excess -5.5 L ABG Methemoglobin 1.5 Danny Test Present Hemoglobin 12.5 Carboxyhemoglobin 1.6 O2 Delivery Device Ventilator Liter Flow Vent Setting [id number]/0.9/+8 Inspired O2 75 Critical Value No Sodium 140 Potassium 3.9 Chloride 107 Carbon Dioxide 20.8 L Anion Gap 12 BUN 36 H Creatinine 2.09 H Estimated GFR 32 L POC Glucose 118 H Random Glucose 116 H Lactic Acid Calcium 7.4 L* Prot Corrected Calcium 7.6 L Phosphorus Magnesium 1.5 Total Bilirubin AST ALT Alkaline Phosphatase Total Creatine Kinase 178 CK-MB (CK-2) 4.4 H CK-MB (CK-2) % Troponin I 2.98 H* B-Natriuretic Peptide Total Protein 6.8 Albumin Urine Color Urine Clarity Urine pH Ur Specific [place] Urine Protein Urine Glucose (UA) Urine Ketones Urine Occult Blood Urine Nitrate Urine Bilirubin Urine Urobilinogen Ur Leukocyte Esterase Urine RBC Urine WBC Granular Casts Urine Mucus Micro UA Comment Ur Microscopic Review Urine Culture Comments Nasal Screen MRSA (PCR) Random Vancomycin Adenovirus (PCR) Bordetella holmesii PCR B. pertussis DNA (PCR) B. paraper/bronch (PCR) Human Metapneumovir PCR Influenza A (RT-PCR) Influenza A (H1) PCR Influenza A (H3) PCR Influenza B (RT-PCR) Parainfluenza 1 (PCR) Parainfluenza 2 (PCR) Parainfluenza 3 (PCR) Parainfluenza 4 (PCR) RSV Type A (PCR) RSV Type B (PCR) Rhinovirus (PCR) 01/11/18 01/11/18 01/11/18 01:06 05:06 06:15 CBC w Diff WBC RBC Hgb Hct MCV MCH MCHC RDW Plt Count MPV Prelim Diff (Auto) Neut % (Auto) Lymph % (Auto) [place] % (Auto) Eos % (Auto) Baso % (Auto) Neut # (Auto) Lymph # (Auto) [place] # (Auto) Eos # (Auto) Baso # (Auto) WBC Differential Seg Neuts % (Manual) Band Neuts % (Manual) Lymphocytes % (Manual) Monocytes % (Manual) Abs Neuts (Manual) Differential Comment Platelet Estimate Platelet Morphology PT 15.0 H INR 1.5 APTT 46.2 H Puncture Site Art line Patient Temperature 98.6 O2 Saturation 93 ABG pH 7.36 L ABG pCO2 30 L ABG pO2 77 ABG HCO3 17 L ABG O2 Content 16.5 ABG Base Excess -7.9 L ABG Methemoglobin 1.5 Danny Test Hemoglobin 12.6 Carboxyhemoglobin 1.7 O2 Delivery Device Ventilator Liter Flow Vent Setting Prvc/ac Inspired O2 55 Critical Value No Sodium Potassium Chloride Carbon Dioxide Anion Gap BUN Creatinine Estimated GFR POC Glucose 144 H Random Glucose Lactic Acid Calcium Prot Corrected Calcium Phosphorus Magnesium Total Bilirubin AST ALT Alkaline Phosphatase Total Creatine Kinase CK-MB (CK-2) CK-MB (CK-2) % Troponin I B-Natriuretic Peptide Total Protein Albumin Urine Color Urine Clarity Urine pH Ur Specific [place] Urine Protein Urine Glucose (UA) Urine Ketones Urine Occult Blood Urine Nitrate Urine Bilirubin Urine Urobilinogen Ur Leukocyte Esterase Urine RBC Urine WBC Granular Casts Urine Mucus Micro UA Comment Ur Microscopic Review Urine Culture Comments Nasal Screen MRSA (PCR) Random Vancomycin Adenovirus (PCR) Bordetella holmesii PCR B. pertussis DNA (PCR) B. paraper/bronch (PCR) Human Metapneumovir PCR Influenza A (RT-PCR) Influenza A (H1) PCR Influenza A (H3) PCR Influenza B (RT-PCR) Parainfluenza 1 (PCR) Parainfluenza 2 (PCR) Parainfluenza 3 (PCR) Parainfluenza 4 (PCR) RSV Type A (PCR) RSV Type B (PCR) Rhinovirus (PCR) 01/11/18 01/11/18 01/11/18 06:15 06:15 06:15 CBC w Diff WBC 22.4 H RBC 4.02 L Hgb 12.4 L Hct 38.1 L MCV 94.7 MCH 31.0 MCHC 32.7 RDW 17.0 Plt Count 305 MPV 8.5 Prelim Diff (Auto) Slide review pending Neut % (Auto) 81.6 H Lymph % (Auto) 5.9 L [place] % (Auto) 11.8 H Eos % (Auto) 0.1 Baso % (Auto) 0.6 Neut # (Auto) 18.3 H Lymph # (Auto) 1.3 [place] # (Auto) 2.6 H Eos # (Auto) 0.0 Baso # (Auto) 0.1 WBC Differential Manual diff final Seg Neuts % (Manual) 76 H Band Neuts % (Manual) 9 H Lymphocytes % (Manual) 6 L Monocytes % (Manual) 9 H Abs Neuts (Manual) 19.0 H Differential Comment . Platelet Estimate Normal Platelet Morphology Normal PT INR APTT Puncture Site Patient Temperature O2 Saturation ABG pH ABG pCO2 ABG pO2 ABG HCO3 ABG O2 Content ABG Base Excess ABG Methemoglobin Danny Test Hemoglobin Carboxyhemoglobin O2 Delivery Device Liter Flow Vent Setting Inspired O2 Critical Value Sodium 138 Potassium 4.2 Chloride 107 Carbon Dioxide 18.2 L Anion Gap 13 BUN 38 H Creatinine 2.33 H Estimated GFR 28 L POC Glucose Random Glucose 166 H Lactic Acid Calcium 7.5 L Prot Corrected Calcium Phosphorus 4.6 D Magnesium 1.5 Total Bilirubin 2.3 H AST 35 ALT 47 Alkaline Phosphatase 104 Total Creatine Kinase 200 CK-MB (CK-2) CK-MB (CK-2) % Troponin I B-Natriuretic Peptide 907 H Total Protein 6.6 Albumin 2.6 L Urine Color Urine Clarity Urine pH Ur Specific [place] Urine Protein Urine Glucose (UA) Urine Ketones Urine Occult Blood Urine Nitrate Urine Bilirubin Urine Urobilinogen Ur Leukocyte Esterase Urine RBC Urine WBC Granular Casts Urine Mucus Micro UA Comment Ur Microscopic Review Urine Culture Comments Nasal Screen MRSA (PCR) Random Vancomycin Adenovirus (PCR) Bordetella holmesii PCR B. pertussis DNA (PCR) B. paraper/bronch (PCR) Human Metapneumovir PCR Influenza A (RT-PCR) Influenza A (H1) PCR Influenza A (H3) PCR Influenza B (RT-PCR) Parainfluenza 1 (PCR) Parainfluenza 2 (PCR) Parainfluenza 3 (PCR) Parainfluenza 4 (PCR) RSV Type A (PCR) RSV Type B (PCR) Rhinovirus (PCR) 01/11/18 01/11/18 01/11/18 06:15 07:27 11:24 CBC w Diff WBC RBC Hgb Hct MCV MCH MCHC RDW Plt Count MPV Prelim Diff (Auto) Neut % (Auto) Lymph % (Auto) [place] % (Auto) Eos % (Auto) Baso % (Auto) Neut # (Auto) Lymph # (Auto) [place] # (Auto) Eos # (Auto) Baso # (Auto) WBC Differential Seg Neuts % (Manual) Band Neuts % (Manual) Lymphocytes % (Manual) Monocytes % (Manual) Abs Neuts (Manual) Differential Comment Platelet Estimate Platelet Morphology PT INR APTT Puncture Site Patient Temperature O2 Saturation ABG pH ABG pCO2 ABG pO2 ABG HCO3 ABG O2 Content ABG Base Excess ABG Methemoglobin Danny Test Hemoglobin Carboxyhemoglobin O2 Delivery Device Liter Flow Vent Setting Inspired O2 Critical Value Sodium Potassium Chloride Carbon Dioxide Anion Gap BUN Creatinine Estimated GFR POC Glucose 185 H 136 H Random Glucose Lactic Acid Calcium Prot Corrected Calcium Phosphorus Magnesium Total Bilirubin AST ALT Alkaline Phosphatase Total Creatine Kinase 209 CK-MB (CK-2) CK-MB (CK-2) % Troponin I 3.32 H* B-Natriuretic Peptide Total Protein Albumin Urine Color Urine Clarity Urine pH Ur Specific [place] Urine Protein Urine Glucose (UA) Urine Ketones Urine Occult Blood Urine Nitrate Urine Bilirubin Urine Urobilinogen Ur Leukocyte Esterase Urine RBC Urine WBC Granular Casts Urine Mucus Micro UA Comment Ur Microscopic Review Urine Culture Comments Nasal Screen MRSA (PCR) Random Vancomycin Adenovirus (PCR) Bordetella holmesii PCR B. pertussis DNA (PCR) B. paraper/bronch (PCR) Human Metapneumovir PCR Influenza A (RT-PCR) Influenza A (H1) PCR Influenza A (H3) PCR Influenza B (RT-PCR) Parainfluenza 1 (PCR) Parainfluenza 2 (PCR) Parainfluenza 3 (PCR) Parainfluenza 4 (PCR) RSV Type A (PCR) RSV Type B (PCR) Rhinovirus (PCR) 01/11/18 01/11/18 01/11/18 16:57 20:30 20:45 CBC w Diff WBC RBC Hgb Hct MCV MCH MCHC RDW Plt Count MPV Prelim Diff (Auto) Neut % (Auto) Lymph % (Auto) [place] % (Auto) Eos % (Auto) Baso % (Auto) Neut # (Auto) Lymph # (Auto) [place] # (Auto) Eos # (Auto) Baso # (Auto) WBC Differential Seg Neuts % (Manual) Band Neuts % (Manual) Lymphocytes % (Manual) Monocytes % (Manual) Abs Neuts (Manual) Differential Comment Platelet Estimate Platelet Morphology PT INR APTT Puncture Site Patient Temperature O2 Saturation ABG pH ABG pCO2 ABG pO2 ABG HCO3 ABG O2 Content ABG Base Excess ABG Methemoglobin Danny Test Hemoglobin Carboxyhemoglobin O2 Delivery Device Liter Flow Vent Setting Inspired O2 Critical Value Sodium Potassium Chloride Carbon Dioxide Anion Gap BUN Creatinine Estimated GFR POC Glucose 162 H Random Glucose Lactic Acid 2.0 Calcium Prot Corrected Calcium Phosphorus Magnesium Total Bilirubin AST ALT Alkaline Phosphatase Total Creatine Kinase CK-MB (CK-2) CK-MB (CK-2) % Troponin I B-Natriuretic Peptide Total Protein Albumin Urine Color Urine Clarity Urine pH Ur Specific [place] Urine Protein Urine Glucose (UA) Urine Ketones Urine Occult Blood Urine Nitrate Urine Bilirubin Urine Urobilinogen Ur Leukocyte Esterase Urine RBC Urine WBC Granular Casts Urine Mucus Micro UA Comment Ur Microscopic Review Urine Culture Comments Nasal Screen MRSA (PCR) Random Vancomycin Adenovirus (PCR) Not detected Bordetella holmesii PCR Not detected B. pertussis DNA (PCR) Not detected B. paraper/bronch (PCR) Not detected Human Metapneumovir PCR Not detected Influenza A (RT-PCR) Not detected Influenza A (H1) PCR Not detected Influenza A (H3) PCR Not detected Influenza B (RT-PCR) Not detected Parainfluenza 1 (PCR) Not detected Parainfluenza 2 (PCR) Not detected Parainfluenza 3 (PCR) Not detected Parainfluenza 4 (PCR) Not detected RSV Type A (PCR) Not detected RSV Type B (PCR) Not detected Rhinovirus (PCR) Not detected 01/11/18 01/11/18 01/12/18 21:06 22:14 00:05 CBC w Diff WBC RBC Hgb Hct MCV MCH MCHC RDW Plt Count MPV Prelim Diff (Auto) Neut % (Auto) Lymph % (Auto) [place] % (Auto) Eos % (Auto) Baso % (Auto) Neut # (Auto) Lymph # (Auto) [place] # (Auto) Eos # (Auto) Baso # (Auto) WBC Differential Seg Neuts % (Manual) Band Neuts % (Manual) Lymphocytes % (Manual) Monocytes % (Manual) Abs Neuts (Manual) Differential Comment Platelet Estimate Platelet Morphology PT INR APTT Puncture Site Cathy Morgan Patient Temperature 98.6 98.6 98.6 O2 Saturation 95 94 93 ABG pH 7.02 L* 7.05 L* 7.16 L* ABG pCO2 72 H* 66 H* 56 H* ABG pO2 116 106 83 ABG HCO3 18 L 18 L 19 L ABG O2 Content 16.9 16.4 15.8 ABG Base Excess -11.7 L -11.3 L -8.0 L ABG Methemoglobin 1.6 1.6 1.7 Danny Test Hemoglobin 12.6 12.3 12.1 Carboxyhemoglobin 1.1 1.1 1.3 O2 Delivery Device vent vent vent Liter Flow Vent Setting See comments see comments see comments Inspired O2 100 100 100 Critical Value Yes Yes Yes Sodium Potassium Chloride Carbon Dioxide Anion Gap BUN Creatinine Estimated GFR POC Glucose Random Glucose Lactic Acid Calcium Prot Corrected Calcium Phosphorus Magnesium Total Bilirubin AST ALT Alkaline Phosphatase Total Creatine Kinase CK-MB (CK-2) CK-MB (CK-2) % Troponin I B-Natriuretic Peptide Total Protein Albumin Urine Color Urine Clarity Urine pH Ur Specific [place] Urine Protein Urine Glucose (UA) Urine Ketones Urine Occult Blood Urine Nitrate Urine Bilirubin Urine Urobilinogen Ur Leukocyte Esterase Urine RBC Urine WBC Granular Casts Urine Mucus Micro UA Comment Ur Microscopic Review Urine Culture Comments Nasal Screen MRSA (PCR) Random Vancomycin Adenovirus (PCR) Bordetella holmesii PCR B. pertussis DNA (PCR) B. paraper/bronch (PCR) Human Metapneumovir PCR Influenza A (RT-PCR) Influenza A (H1) PCR Influenza A (H3) PCR Influenza B (RT-PCR) Parainfluenza 1 (PCR) Parainfluenza 2 (PCR) Parainfluenza 3 (PCR) Parainfluenza 4 (PCR) RSV Type A (PCR) RSV Type B (PCR) Rhinovirus (PCR) 01/12/18 01/12/18 01/12/18 00:24 05:00 05:00 CBC w Diff WBC 24.3 H RBC 3.90 L Hgb 12.3 L Hct 37.6 L MCV 96.5 MCH 31.6 MCHC 32.8 RDW 17.5 H Plt Count 207 D MPV 8.7 Prelim Diff (Auto) Neut % (Auto) 91.1 H Lymph % (Auto) 3.7 L [place] % (Auto) 4.8 Eos % (Auto) 0.1 Baso % (Auto) 0.3 Neut # (Auto) 22.1 H Lymph # (Auto) 0.9 L [place] # (Auto) 1.2 H Eos # (Auto) 0.0 Baso # (Auto) 0.1 WBC Differential . Seg Neuts % (Manual) Band Neuts % (Manual) Lymphocytes % (Manual) Monocytes % (Manual) Abs Neuts (Manual) Differential Comment Auto diff final Platelet Estimate Platelet Morphology PT 17.4 H INR 1.7 APTT Puncture Site Patient Temperature O2 Saturation ABG pH ABG pCO2 ABG pO2 ABG HCO3 ABG O2 Content ABG Base Excess ABG Methemoglobin Danny Test Hemoglobin Carboxyhemoglobin O2 Delivery Device Liter Flow Vent Setting Inspired O2 Critical Value Sodium Potassium Chloride Carbon Dioxide Anion Gap BUN Creatinine Estimated GFR POC Glucose 144 H Random Glucose Lactic Acid Calcium Prot Corrected Calcium Phosphorus Magnesium Total Bilirubin AST ALT Alkaline Phosphatase Total Creatine Kinase CK-MB (CK-2) CK-MB (CK-2) % Troponin I B-Natriuretic Peptide Total Protein Albumin Urine Color Urine Clarity Urine pH Ur Specific [place] Urine Protein Urine Glucose (UA) Urine Ketones Urine Occult Blood Urine Nitrate Urine Bilirubin Urine Urobilinogen Ur Leukocyte Esterase Urine RBC Urine WBC Granular Casts Urine Mucus Micro UA Comment Ur Microscopic Review Urine Culture Comments Nasal Screen MRSA (PCR) Random Vancomycin Adenovirus (PCR) Bordetella holmesii PCR B. pertussis DNA (PCR) B. paraper/bronch (PCR) Human Metapneumovir PCR Influenza A (RT-PCR) Influenza A (H1) PCR Influenza A (H3) PCR Influenza B (RT-PCR) Parainfluenza 1 (PCR) Parainfluenza 2 (PCR) Parainfluenza 3 (PCR) Parainfluenza 4 (PCR) RSV Type A (PCR) RSV Type B (PCR) Rhinovirus (PCR) 01/12/18 01/12/18 01/12/18 05:00 05:00 05:00 CBC w Diff WBC RBC Hgb Hct MCV MCH MCHC RDW Plt Count MPV Prelim Diff (Auto) Neut % (Auto) Lymph % (Auto) [place] % (Auto) Eos % (Auto) Baso % (Auto) Neut # (Auto) Lymph # (Auto) [place] # (Auto) Eos # (Auto) Baso # (Auto) WBC Differential Seg Neuts % (Manual) Band Neuts % (Manual) Lymphocytes % (Manual) Monocytes % (Manual) Abs Neuts (Manual) Differential Comment Platelet Estimate Platelet Morphology PT INR APTT 81.9 H D Puncture Site Patient Temperature O2 Saturation ABG pH ABG pCO2 ABG pO2 ABG HCO3 ABG O2 Content ABG Base Excess ABG Methemoglobin Danny Test Hemoglobin Carboxyhemoglobin O2 Delivery Device Liter Flow Vent Setting Inspired O2 Critical Value Sodium 136 Potassium 4.5 Chloride 100 Carbon Dioxide 19.1 L Anion Gap 17 H BUN 47 H Creatinine 3.07 H Estimated GFR 20 L POC Glucose Random Glucose 119 H Lactic Acid Calcium 6.6 L* D Prot Corrected Calcium 7.0 L* Phosphorus 4.9 Magnesium 1.4 L Total Bilirubin 5.9 H AST 185 H ALT 131 H Alkaline Phosphatase 90 Total Creatine Kinase CK-MB (CK-2) CK-MB (CK-2) % Troponin I B-Natriuretic Peptide 497 H Total Protein 6.3 L Albumin 2.3 L Urine Color Urine Clarity Urine pH Ur Specific [place] Urine Protein Urine Glucose (UA) Urine Ketones Urine Occult Blood Urine Nitrate Urine Bilirubin Urine Urobilinogen Ur Leukocyte Esterase Urine RBC Urine WBC Granular Casts Urine Mucus Micro UA Comment Ur Microscopic Review Urine Culture Comments Nasal Screen MRSA (PCR) Random Vancomycin 11.4 Adenovirus (PCR) Bordetella holmesii PCR B. pertussis DNA (PCR) B. paraper/bronch (PCR) Human Metapneumovir PCR Influenza A (RT-PCR) Influenza A (H1) PCR Influenza A (H3) PCR Influenza B (RT-PCR) Parainfluenza 1 (PCR) Parainfluenza 2 (PCR) Parainfluenza 3 (PCR) Parainfluenza 4 (PCR) RSV Type A (PCR) RSV Type B (PCR) Rhinovirus (PCR) 01/12/18 01/12/18 01/12/18 05:16 11:20 11:30 CBC w Diff WBC RBC Hgb Hct MCV MCH MCHC RDW Plt Count MPV Prelim Diff (Auto) Neut % (Auto) Lymph % (Auto) [place] % (Auto) Eos % (Auto) Baso % (Auto) Neut # (Auto) Lymph # (Auto) [place] # (Auto) Eos # (Auto) Baso # (Auto) WBC Differential Seg Neuts % (Manual) Band Neuts % (Manual) Lymphocytes % (Manual) Monocytes % (Manual) Abs Neuts (Manual) Differential Comment Platelet Estimate Platelet Morphology PT INR APTT Puncture Site [place] Art line Patient Temperature 98.6 98.6 O2 Saturation 94 97 ABG pH 7.27 L* 7.40 ABG pCO2 37 L 25 L ABG pO2 83 179 H ABG HCO3 17 L 15 L* ABG O2 Content 17.0 16.0 ABG Base Excess -9.1 L -8.9 L ABG Methemoglobin 1.5 1.5 Danny Test Hemoglobin 12.8 11.5 L Carboxyhemoglobin 1.5 1.5 O2 Delivery Device Vent Ventilator Liter Flow Vent Setting See comments [id number] Inspired O2 100 50 Critical Value Yes Yes Sodium 133 L Potassium 4.0 Chloride 99 Carbon Dioxide 16.8 L Anion Gap 17 H BUN 51 H Creatinine 2.84 H Estimated GFR 22 L POC Glucose Random Glucose 176 H Lactic Acid Calcium 6.7 L* Prot Corrected Calcium 7.3 L* Phosphorus 3.2 D Magnesium 1.2 L Total Bilirubin 5.6 H AST 273 H ALT 199 H Alkaline Phosphatase 77 Total Creatine Kinase CK-MB (CK-2) CK-MB (CK-2) % Troponin I B-Natriuretic Peptide Total Protein 5.8 L Albumin 2.1 L Urine Color Urine Clarity Urine pH Ur Specific [place] Urine Protein Urine Glucose (UA) Urine Ketones Urine Occult Blood Urine Nitrate Urine Bilirubin Urine Urobilinogen Ur Leukocyte Esterase Urine RBC Urine WBC Granular Casts Urine Mucus Micro UA Comment Ur Microscopic Review Urine Culture Comments Nasal Screen MRSA (PCR) Random Vancomycin Adenovirus (PCR) Bordetella holmesii PCR B. pertussis DNA (PCR) B. paraper/bronch (PCR) Human Metapneumovir PCR Influenza A (RT-PCR) Influenza A (H1) PCR Influenza A (H3) PCR Influenza B (RT-PCR) Parainfluenza 1 (PCR) Parainfluenza 2 (PCR) Parainfluenza 3 (PCR) Parainfluenza 4 (PCR) RSV Type A (PCR) RSV Type B (PCR) Rhinovirus (PCR) 01/12/18 11:39 CBC w Diff WBC RBC Hgb Hct MCV MCH MCHC RDW Plt Count MPV Prelim Diff (Auto) Neut % (Auto) Lymph % (Auto) [place] % (Auto) Eos % (Auto) Baso % (Auto) Neut # (Auto) Lymph # (Auto) [place] # (Auto) Eos # (Auto) Baso # (Auto) WBC Differential Seg Neuts % (Manual) Band Neuts % (Manual) Lymphocytes % (Manual) Monocytes % (Manual) Abs Neuts (Manual) Differential Comment Platelet Estimate Platelet Morphology PT INR APTT Puncture Site Patient Temperature O2 Saturation ABG pH ABG pCO2 ABG pO2 ABG HCO3 ABG O2 Content ABG Base Excess ABG Methemoglobin Danny Test Hemoglobin Carboxyhemoglobin O2 Delivery Device Liter Flow Vent Setting Inspired O2 Critical Value Sodium Potassium Chloride Carbon Dioxide Anion Gap BUN Creatinine Estimated GFR POC Glucose 189 H Random Glucose Lactic Acid Calcium Prot Corrected Calcium Phosphorus Magnesium Total Bilirubin AST ALT Alkaline Phosphatase Total Creatine Kinase CK-MB (CK-2) CK-MB (CK-2) % Troponin I B-Natriuretic Peptide Total Protein Albumin Urine Color Urine Clarity Urine pH Ur Specific [place] Urine Protein Urine Glucose (UA) Urine Ketones Urine Occult Blood Urine Nitrate Urine Bilirubin Urine Urobilinogen Ur Leukocyte Esterase Urine RBC Urine WBC Granular Casts Urine Mucus Micro UA Comment Ur Microscopic Review Urine Culture Comments Nasal Screen MRSA (PCR) Random Vancomycin Adenovirus (PCR) Bordetella holmesii PCR B. pertussis DNA (PCR) B. paraper/bronch (PCR) Human Metapneumovir PCR Influenza A (RT-PCR) Influenza A (H1) PCR Influenza A (H3) PCR Influenza B (RT-PCR) Parainfluenza 1 (PCR) Parainfluenza 2 (PCR) Parainfluenza 3

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
[2018-01-12] MEDS ORDERED: Mag Sulf 1 gm/100 ml Premix 100 ML IV.SIG ONE (16:30)
[2018-01-12] MEDS: Midazolam 50 MG/50 ML Inj 50 MG/50 ML BAG IV.CONT PRN (17:54)
--- NOTE | 2018-01-12 18:31 | ECHRPT ---
Indication: CONCLUSIONS Wall thickness is normal. Normal left ventricular size. The left ventricular systolic function is severely reduced with an estimated ejection fraction in th e range of 30-35%. BP: / HR: Rhythm: MEASUREMENTS (Male / Female) Normal Values Technical Quality: 2D ECHO LV Ejection Fraction MOD 4C 32.1 % LV Ejection Fraction 4C AL 32.6 % FINDINGS LEFT VENTRICLE Wall thickness is normal. Normal left ventricular size. The left ventricular systolic function is severely reduced with an estimated ejection fraction in th e range of 30-35%. Frandy Cullen MD, FACC, [facility] Edited by: web operations administrator web operations administrator (Electronically Signed) Final Date:12 January 2018 15:00 Amended: 12 January 2018 18:30
[2018-01-12] MEDS: Norepinephrine Inj 16 MG in Sodium Chlor 0.9% Inj 234 ML IV.SIG PRN (19:26)
[2018-01-12 22:57] LABS: Calcium 6.5 mg/dL (8.5-10.1); Carbon Dioxide 17.6 meq/L (21.0-32.0); Potassium 3.5 meq/L (3.5-5.1)
[2018-01-12 23:08] LABS: Total Protein 5.5 g/dL (6.4-8.2)
[2018-01-13] MEDS: fentaNYL 10 mcg/mL Premix Drip 2,500 MCG/250 ML BAG IV.SIG PRN ×2 (00:05→12:00)
[2018-01-13] MEDS: Oral Hygiene Kit OROPHARYNG SCH ×4 (00:09→15:44)
[2018-01-13] MEDS: Vasopressin Inj 40 UNIT in Dextrose 5% in Water Inj 98 ML IV.CONT PRN ×2 (00:28)
[2018-01-13] MEDS: Insulin NovoLIN Regular Correctional Sugar Inj SQ SCH ×4 (00:37→17:43)
[2018-01-13] MEDS ORDERED: Calcium Gluconate Inj 1 GM in Sodium Chlor 0.9% Inj 100 ML IV.SIG ONE (02:00)
[2018-01-13] MEDS ORDERED: Magnesium Sulfate Inj 2 GM in Sodium Chlor 0.9% Inj 96 ML IV.SIG ONE (02:00)
[2018-01-13] MEDS: Heparin Drip 25,000 UNIT/250 ML BAG IV.CONT PRN (03:40)
[2018-01-13] MEDS: Epoprostenol (30,000/mL) Neb 100 ML in Sodium Chlor 0.9% Inj 0 ML NEB SCH ×2 (03:47→05:45)
[2018-01-13] MEDS: Midazolam 50 MG/50 ML Inj 50 MG/50 ML BAG IV.CONT PRN ×2 (04:51→14:19)
[2018-01-13] MEDS: Chlorhexidine Gluconate 2% 1 Pack (2 Cloths) TOPICAL SCH (05:46)
[2018-01-13 05:49] LABS: Baso % (Auto) 0.1 % (0.0-2.0); Eos % (Auto) 0.1 % (0.0-4.0); Hematocrit 29.6 % (39.0-51.0); Hemoglobin 10.2 gm/dL (13.0-17.0); Lymph # (Auto) 0.5 th/mm3 (1.0-4.8); Lymph % (Auto) 4.9 % (9.0-44.0); Mean Corpuscular HGB Conc 34.6 % (32.0-36.0); Mean Corpuscular Hemoglobin 32.3 pg (27.0-34.0); Mean Corpuscular Volume 93.1 fL (80.0-100.0); Mean Platelet Volume 9.2 fL (7.0-11.0); Mono # (Auto) 0.6 th/mm3 (0.0-0.9); Mono % (Auto) 6.3 % (0.0-8.0); Neut # (Auto) 8.5 th/mm3 (1.8-7.7); Neut % (Auto) 88.6 % (16.0-70.0); Platelet Count 126 th/mm3 (150-450); Red Blood Count 3.17 mil/mm3 (4.50-5.90); Red Cell Distribution Width 17.2 % (11.6-17.2); White Blood Count 9.5 th/mm3 (4.0-11.0)
[2018-01-13 05:59] LABS: INR 1.9 Ratio; Prothrombin Time 19.2 sec (9.8-11.6)
[2018-01-13 06:13] LABS: Albumin 1.9 g/dL (3.4-5.0); Calcium 6.7 mg/dL (8.5-10.1); Magnesium 1.9 mg/dL (1.5-2.5); Phosphorus 2.3 mg/dL (2.5-4.9); Potassium 3.2 meq/L (3.5-5.1); Total Protein 5.5 g/dL (6.4-8.2)
[2018-01-13] MEDS: Hydrocortisone Sod Succinate 100 MG Vial IV.PUSH SCH ×3 (06:27→21:21)
[2018-01-13] MEDS: Sodium Bicarbonate 8.4% Inj 150 MEQ in Water for Inj, Sterile 850 ML IV.CONT SCH ×2 (06:44→17:21)
[2018-01-13] MEDS: Norepinephrine Inj 16 MG in Sodium Chlor 0.9% Inj 234 ML IV.SIG PRN (08:00)
--- NOTE | 2018-01-13 08:04 | P.PNCA ---
Subjective Interval history: Intubated Medications and Allergies Active Medications: Active Medications Acetaminophen (Tylenol) 650 mg PO Q6H PRN PRN Reason: TEMPERATURE > 101 F Last Admin: 01/11/18 15:50 Dose: 650 mg Albuterol (Duoneb Neb (Prn)) 1 ampul NEB Q2HR NEB PRN PRN Reason: WHEEZING Albuterol (Duoneb Neb (Shreyas)) 1 ampul NEB Q6HR NEB [facility] Last Admin: 01/13/18 07:18 Dose: Not Given Aspirin (Aspirin Chew) 81 mg PO DAILY [facility] Last Admin: 01/12/18 08:04 Dose: 81 mg Bisacodyl (Dulcolax Supp) 10 mg RECTAL DAILY PRN PRN Reason: if no BM in last 24h Chlorhexidine Gluconate (Peridex 0.12% Oral Kit) 15 ml OROPHARYNG BID@0800, 2000 [facility] Last Admin: 01/12/18 22:16 Dose: 15 ml Chlorhexidine Gluconate (Chlorhexidine 2% Cloth) 3 pack TOPICAL DAILY@0400 [facility] Stop: 01/15/18 03:59 Last Admin: 01/13/18 05:46 Dose: 3 pack Chlorhexidine Gluconate (Chlorhexidine 2% Cloth) 3 pack TOPICAL DAILY@0400 PRN PRN Reason: Extra cloth needed Stop: 01/15/18 03:59 Dextrose (D50w Vial) 50 ml IV.PUSH UNSCH PRN PRN Reason: PER HYPOGLYCEMIA PROTOCOL Famotidine (Pepcid Pf Inj) 10 mg IV.PUSH Q12HR [facility] Last Admin: 01/12/18 21:48 Dose: 10 mg Glucagon (Glucagon Inj) 1 mg OTHER PRN PRN PRN Reason: for Hypoglycemia Protocol Hydrocortisone Sodium Succinate (Solucortef Inj) 100 mg IV.PUSH Q8HR [facility] Last Admin: 01/13/18 06:27 Dose: 100 mg Fentanyl (Fentanyl 10 Mcg/Ml Premix Drip) 2,500 mcg in 250 mls @ 5 mls/hr IV.SIG TITRATE PRN; Protocol PRN Reason: Per Protocol Last Admin: 01/13/18 00:05 Dose: 200 mcg/hr, 20 mls/hr Midazolam HCl (Versed Inj) 50 mg in 50 mls @ 2 mls/hr IV.CONT TITRATE PRN; Protocol PRN Reason: Per Protocol Last Titration: 01/13/18 06:45 Dose: 4 mg/hr, 4 mls/hr Dopamine HCl/Dextrose (Dopamine 800 Mg/500 Ml Premix) 800 mg in 500 mls @ 11.25 mls/hr IV.CONT TITRATE PRN; Protocol PRN Reason: Per Protocol Last Titration: 01/10/18 17:30 Dose: 0 mcg/kg/min, 0 mls/hr Aztreonam 1,000 mg/ Sodium (Chloride) 100 mls @ 200 mls/hr IV.SIG Q8H [facility] Last Admin: 01/13/18 06:27 Dose: 100 mls/hr Heparin Sodium/Dextrose (Heparin/D5w 25,000 U/250 Ml) 25,000 unit in 250 mls @ 0 mls/hr IV.CONT TITRATE PRN; Protocol PRN Reason: Per Protocol Last Admin: 01/13/18 03:40 Dose: 8 units/hr, 0.08 mls/hr Magnesium Sulfate 2 gm/ Sodium (Chloride) 100 mls @ 50 mls/hr IV.SIG UNSCH PRN PRN Reason: For Magnesium 1.2 - 1.6 mg/dL Metronidazole/Sodium Chloride (Flagyl 500 Mg Inj) 100 mls @ 100 mls/hr IV.SIG Q6H [facility] Last Admin: 01/13/18 06:27 Dose: 100 mls/hr Potassium Chloride (Kcl 40 Meq Premix Inj) 40 meq in 100 mls @ 25 mls/hr IV.SIG Q2H PRN PRN Reason: For Potassium 2.8 - 3.2 mEq/L Potassium Chloride (Kcl 20 Meq Premix Inj) 20 meq in 100 mls @ 50 mls/hr IV.SIG Q2H PRN PRN Reason: For Potassium 3.3 - 3.5 mEq/L Potassium Chloride (Kcl 40 Meq Premix Inj) 40 meq in 100 mls @ 25 mls/hr IV.SIG UNSCH PRN PRN Reason: For Potassium 3.3 - 3.5 mEq/L Potassium Phosphate 30 mmol/ (Sodium Chloride) 260 mls @ 42 mls/hr IV.SIG UNSCH PRN PRN Reason: SEE LABEL COMMENTS Sodium Phosphate 30 mmol/ (Sodium Chloride) 260 mls @ 42 mls/hr IV.SIG UNSCH PRN PRN Reason: For Phosphorus < 2.5 mg/dL Magnesium Sulfate 4 gm/ Sodium (Chloride) 100 mls @ 50 mls/hr IV.SIG UNSCH PRN PRN Reason: For Magnesium 0.9 - 1.1 mg/dL Potassium Chloride (Kcl 20 Meq Premix Inj) 20 meq in 100 mls @ 50 mls/hr IV.SIG Q2H PRN PRN Reason: For Potassium 2.8 - 3.2 mEq/L Vasopressin 40 unit/ Dextrose 100 mls @ 6 mls/hr IV.CONT TITRATE PRN; Protocol PRN Reason: Per Protocol Last Admin: 01/13/18 00:28 Dose: 0.04 units/min, 6 mls/hr Norepinephrine Bitartrate 16 (mg/ Sodium Chloride) 250 mls @ 1.87 mls/hr IV.SIG TITRATE PRN; Protocol PRN Reason: Per Protocol Last Titration: 01/12/18 19:35 Dose: 0 mcg/min, 0 mls/hr Sodium Bicarbonate 150 meq/ (Sterile Water) 1,000 mls @ 75 mls/hr IV.CONT .[id number] [facility] Last Admin: 01/13/18 06:44 Dose: Not Given Phenylephrine HCl 160 mg/ (Dextrose) 500 mls @ 7.5 mls/hr IV.CONT TITRATE PRN; Protocol PRN Reason: Per Protocol Last Titration: 01/12/18 19:23 Dose: 40 mcg/min, 7.5 mls/hr Epoprostenol Sodium 100 ml/ (Sodium Chloride) 100 mls @ 5 mls/hr NEB Q8H [facility] Last Admin: 01/13/18 05:45 Dose: Not Given Linezolid (Zyvox 600 Mg Premix) 300 mls @ 300 mls/hr IV.SIG Q12H [facility] Last Infusion: 01/13/18 04:53 Dose: Infused Insulin Human Regular (Novolin R Correctional Sugar Inj) 0 units SQ Q6HR [facility]REY[facility]; Protocol Last Admin: 01/13/18 06:44 Dose: 2 units Lactulose (Lactulose Liq) 30 ml PO BID [facility] Last Admin: 01/12/18 21:48 Dose: 30 ml Magnesium Oxide (Mag-Ox) 800 mg PO UNSCH PRN PRN Reason: For Magnesium 1.2 - 1.6 mg/dL Miscellaneous Medication () 1 each OROPHARYNG 0000,0400,1200,1600 [facility] Last Admin: 01/13/18 05:45 Dose: 1 each Ondansetron HCl (Zofran Inj) 4 mg IV.PUSH Q6H PRN PRN Reason: NAUSEA OR VOMITING Polyethylene Glycol (Miralax) 17 gm PO BID [facility] Last Admin: 01/12/18 21:48 Dose: 17 gm Potassium Bicarb/Potassium Chloride (K-Lyte Cl Eff) 50 meq PO UNSCH PRN PRN Reason: For Potassium 3.3 - 3.5 mEq/L Potassium Phosphate (K-Phos Original) 2,000 mg PO Q4H PRN PRN Reason: Phosphorus Less Than 2.5 mg/dL Potassium Phosphate (K-Phos Original) 2,000 mg PO UNSCH PRN PRN Reason: SEE LABEL COMMENTS Senna/Docusate Sodium (Merari-Colace) 1 tab PO BID [facility] Last Admin: 01/12/18 21:48 Dose: 1 tab Sodium Chloride (Ns Flush) 2 ml IV.FLUSH UNSCH PRN PRN Reason: FLUSH AFTER USING IV ACCESS Sodium Chloride (Ns Flush) 2 ml IV.FLUSH UNSCH PRN PRN Reason: FLUSH AFTER USING IV ACCESS Terbutaline Sulfate (Brethine Inj) 1 mg SQ ONCE PRN PRN Reason: Extravasation Terbutaline Sulfate (Brethine Inj) 1 mg SQ UNSCH PRN PRN Reason: For Extravasation Allergies Allergy/AdvReac Type Severity Reaction Status Date / Time lorazepam Allergy Severe Confusion Verified 01/09/18 11:21 morphine Allergy Severe Confusion Verified 01/09/18 11:21 penicillin G Allergy Mild UNKNOWN Verified 01/09/18 11:21 clonazepam Allergy Unknown confusion Verified 01/09/18 11:21 Home Medications Medication Instructions Recorded Confirmed Type Eliquis 01/09/18 History Physical Exam Vital signs: Vital Signs 01/12/18 08:00 01/12/18 08:01 01/12/18 08:15 Temperature 98.6 F Pulse Rate 68 68 68 Respiratory Rate Blood Pressure 142/67 H 124/58 L Pulse Oximetry 100 100 100 01/12/18 08:31 01/12/18 08:45 01/12/18 09:00 Temperature Pulse Rate 120 H 120 H 124 H Respiratory Rate Blood Pressure 96/54 L 159/76 H 143/65 H Pulse Oximetry 100 100 99 01/12/18 09:15 01/12/18 09:30 01/12/18 09:45 Temperature Pulse Rate 119 H 119 H 118 H Respiratory Rate Blood Pressure 162/73 H 168/78 H 154/60 H Pulse Oximetry 100 100 100 01/12/18 10:00 01/12/18 10:15 01/12/18 10:30 Temperature Pulse Rate 117 H 114 H 110 H Respiratory Rate Blood Pressure 154/68 H 149/70 H 171/81 H Pulse Oximetry 100 100 100 01/12/18 10:46 01/12/18 11:00 01/12/18 11:15 Temperature Pulse Rate 113 H 92 H 77 Respiratory Rate Blood Pressure 133/62 148/67 H 149/70 H Pulse Oximetry 100 100 100 01/12/18 11:30 01/12/18 11:33 01/12/18 11:45 Temperature Pulse Rate 110 H 108 H Respiratory Rate 22 Blood Pressure 145/68 H 150/71 H Pulse Oximetry 100 100 100 01/12/18 12:00 01/12/18 12:15 01/12/18 12:30 Temperature 98.0 F Pulse Rate 107 H 109 H 108 H Respiratory Rate Blood Pressure 152/76 H 147/77 H 144/74 H Pulse Oximetry 100 100 100 01/12/18 12:45 01/12/18 13:00 01/12/18 14:00 Temperature Pulse Rate 109 H 110 H 88 Respiratory Rate 22 Blood Pressure 139/71 142/74 H Pulse Oximetry 100 100 100 01/12/18 15:00 01/12/18 15:30 01/12/18 16:00 Temperature 97.7 F Pulse Rate 109 H 110 H Respiratory Rate 22 22 22 Blood Pressure Pulse Oximetry 100 100 100 01/12/18 17:00 01/12/18 18:00 01/12/18 19:00 Temperature Pulse Rate 111 H 96 H 102 H Respiratory Rate 22 22 22 Blood Pressure Pulse Oximetry 100 100 100 01/12/18 20:00 01/12/18 20:11 01/12/18 21:00 Temperature 98.5 F Pulse Rate 93 H 87 Respiratory Rate 22 23 22 Blood Pressure Pulse Oximetry 100 99 99 01/12/18 22:00 01/12/18 23:00 01/12/18 23:20 Temperature Pulse Rate 60 61 Respiratory Rate 22 22 22 Blood Pressure Pulse Oximetry 100 100 100 01/13/18 00:00 01/13/18 01:00 01/13/18 02:00 Temperature 98.6 F Pulse Rate 60 66 65 Respiratory Rate 22 22 22 Blood Pressure Pulse Oximetry 100 99 100 01/13/18 03:00 01/13/18 04:00 01/13/18 04:39 Temperature 99.2 F Pulse Rate 60 56 L Respiratory Rate 22 22 22 Blood Pressure Pulse Oximetry 100 100 100 01/13/18 05:00 01/13/18 06:00 01/13/18 07:39 Temperature Pulse Rate 57 L 54 L Respiratory Rate 22 22 22 Blood Pressure Pulse Oximetry 100 100 100 Intake & Output 01/12/18 01/13/18 01/13/18 18:59 06:59 18:59 Intake Total 2250 / 2250 2210 / 2210 Output Total 450 / 450 425 / 425 Balance 1800 / 1800 1785 / 1785 Weight 110 kg Intake: IV 2250 / 2250 2160 / 2160 Cordarone Inj 450 MG In D5W Inj 250 / 250 250 / 250 241 ML @ 1 MG/MIN 33.33 mls/hr IV.CONT TITRATE PRN Rx#: [id number] Heparin/D5W 25,000 U/250 mL 25, 250 / 250 000 unit In 250 ml @ Per Protocol IV.CONT TITRATE PRN Rx #:[id number] Versed Inj 50 mg In 50 ml @ 2 50 / 50 50 / 50 MG/HR 2 mls/hr IV.CONT TITRATE PRN Rx#:[id number] Sodium Bicarbonate 8.4% Inj 150 1000 / 1000 MEQ In Sterile Water for Inj 850 ML @ 75 mls/hr IV.CONT . [id number] SHREYAS Rx#:[id number] Pitressin Inj 40 UNIT In D5W 100 / 100 Inj 98 ML @ 0.04 UNITS/MIN 6 mls/hr IV.CONT TITRATE PRN Rx#: [id number] Azactam Inj 1,000 MG In NS Inj 100 / 100 100 / 100 100 ML @ 200 mls/hr IV.SIG Q8H [facility] Rx#:[id number] Calcium Gluconate Inj 1 GM In 110 / 110 NS Inj 100 ML @ 110 mls/hr IV. SIG ONCE ONE Rx#:[id number] Zyvox 600 mg Premix 300 ML @ 300 / 300 300 / 300 300 mls/hr IV.SIG Q12H [facility] Rx#: [id number] Magnesium Sulfate 1 gm/D5W 100 100 / 100 ml Premix 100 ML @ 100 mls/hr IV.SIG ONCE ONE Rx#:[id number] Magnesium Sulfate Inj 2 GM In 100 / 100 NS Inj 96 ML @ 50 mls/hr IV.SIG ONCE ONE Rx#:[id number] Levophed Inj 16 MG In NS Inj 250 / 250 234 ML @ 2 MCG/MIN 1.87 mls/hr IV.SIG TITRATE PRN Rx#:[id number] fentaNYL 10 mcg/mL Premix Drip 250 / 250 250 / 250 2,500 mcg In 250 ml @ 50 MCG/HR 5 mls/hr IV.SIG TITRATE PRN Rx #:[id number] Flagyl 500 MG Inj 100 ML @ 100 200 / 200 200 / 200 mls/hr IV.SIG Q6H [facility] Rx#: [id number] Flolan (30,000 ng/mL) Neb 100 100 / 100 100 / 100 ML In NS Inj 0 ML @ 5 mls/hr NEB Q8H [facility] Rx#:[id number] Tube Irrigant 50 / 50 Output: Urine Amount (Catheter) 450 / 450 425 / 425 Indwelling Urethral Catheter 450 / 450 425 / 425 Other: Date of Last Bowel Movement 01/12/18 01/12/18 # Incontinent Bowel Movements 1 Narrative: Sedated Fentanyl and Versed Opens eyes and tracks per nurse Chest; few rhochi. Secretions less CV S1S2 RRR only trace edema Vasopressin - on/off levo Tele intermittent junctional - AMIO D/C'd - Urinary Catheter Management Indwelling Urethral Catheter Cath placed during this visit: yes Reason for continuing: Hourly intake/output Insertion date: 01/09/18 Insertion time: 21:45 Results 01/13/18 05:00 01/13/18 05:00 Cardiac Enzymes 01/11/18 01/12/18 01/12/18 Range/Units 06:15 05:00 05:00 AST 185 H (15-37) U/L Troponin I 3.32 H* (0.02-0.05) ng/mL B-Natriuretic Peptide 497 H (0-100) pg/mL 01/12/18 01/13/18 Range/Units 11:30 05:00 AST 273 H 282 H (15-37) U/L Troponin I (0.02-0.05) ng/mL B-Natriuretic Peptide (0-100) pg/mL Coagulation 01/12/18 01/12/18 01/12/18 Range/Units 05:00 05:00 05:00 PT 17.4 H (9.8-11.6) sec APTT 81.9 H D (23.4-31.7) sec B-Natriuretic Peptide 497 H (0-100) pg/mL 01/12/18 01/13/18 01/13/18 Range/Units 23:00 05:00 05:00 PT 19.2 H (9.8-11.6) sec APTT 74.5 H 61.8 H (23.4-31.7) sec B-Natriuretic Peptide (0-100) pg/mL CBC 01/12/18 01/13/18 Range/Units 05:00 05:00 WBC 24.3 H 9.5 D (4.0-11.0) th/mm3 RBC 3.90 L 3.17 L (4.50-5.90) mil/mm3 Hgb 12.3 L 10.2 L D (13.0-17.0) gm/dL Hct 37.6 L 29.6 L (39.0-51.0) % Plt Count 207 D 126 L D (150-450) th/mm3 Neut # (Auto) 22.1 H 8.5 H (1.8-7.7) th/mm3 Lymph # (Auto) 0.9 L 0.5 L (1.0-4.8) th/mm3 [place] # (Auto) 1.2 H 0.6 (0.0-0.9) th/mm3 Eos # (Auto) 0.0 0.0 (0.0-0.4) th/mm3 Baso # (Auto) 0.1 0.0 (0.0-0.2) th/mm3 Comprehensive Metabolic Panel 01/12/18 01/12/18 01/12/18 Range/Units 05:00 11:30 22:00 Sodium 136 133 L (136-145) meq/L Potassium 4.5 4.0 Cancelled (3.5-5.1) meq/L Chloride 100 99 (98-107) meq/L Carbon Dioxide 19.1 L 16.8 L (21.0-32.0) meq/L BUN 47 H 51 H (7-18) mg/dL Creatinine 3.07 H 2.84 H (0.60-1.30) mg/dL Calcium 6.6 L* D 6.7 L* (8.5-10.1) mg/dL AST 185 H 273 H (15-37) U/L ALT 131 H 199 H (12-78) U/L Alkaline Phosphatase 90 77 (45-117) U/L Total Protein 6.3 L 5.8 L (6.4-8.2) g/dL Albumin 2.3 L 2.1 L (3.4-5.0) g/dL 01/12/18 01/13/18 Range/Units 22:00 05:00 Sodium 135 L 134 L (136-145) meq/L Potassium 3.5 3.2 L (3.5-5.1) meq/L Chloride 99 98 (98-107) meq/L Carbon Dioxide 17.6 L 18.0 L (21.0-32.0) meq/L BUN 51 H 54 H (7-18) mg/dL Creatinine 2.48 H 2.27 H (0.60-1.30) mg/dL Calcium 6.5 L* 6.7 L* (8.5-10.1) mg/dL AST 282 H (15-37) U/L ALT 279 H (12-78) U/L Alkaline Phosphatase 67 (45-117) U/L Total Protein 5.5 L 5.5 L (6.4-8.2) g/dL Albumin 1.9 L (3.4-5.0) g/dL Intake and Output 01/12/18 01/13/18 01/13/18 22:59 06:59 14:59 Intake Total 900 / 900 1760 / 1760 Output Total 450 / 450 425 / 425 Balance 450 / 450 1335 / 1335 Intake: IV 900 / 900 1710 / 1710 Cordarone Inj 450 MG In D5W Inj 250 / 250 241 ML @ 1 MG/MIN 33.33 mls/hr IV.CONT TITRATE PRN Rx#: [id number] Heparin/D5W 25,000 U/250 mL 25, 250 / 250 000 unit In 250 ml @ Per Protocol IV.CONT TITRATE PRN Rx #:[id number] Versed Inj 50 mg In 50 ml @ 2 50 / 50 50 / 50 MG/HR 2 mls/hr IV.CONT TITRATE PRN Rx#:[id number] Pitressin Inj 40 UNIT In D5W 100 / 100 Inj 98 ML @ 0.04 UNITS/MIN 6 mls/hr IV.CONT TITRATE PRN Rx#: [id number] Azactam Inj 1,000 MG In NS Inj 100 / 100 100 / 100 100 ML @ 200 mls/hr IV.SIG Q8H [facility] Rx#:[id number] Calcium Gluconate Inj 1 GM In 110 / 110 NS Inj 100 ML @ 110 mls/hr IV. SIG ONCE ONE Rx#:[id number] Zyvox 600 mg Premix 300 ML @ 300 / 300 300 / 300 300 mls/hr IV.SIG Q12H [facility] Rx#: [id number] Magnesium Sulfate 1 gm/D5W 100 100 / 100 ml Premix 100 ML @ 100 mls/hr IV.SIG ONCE ONE Rx#:[id number] Magnesium Sulfate Inj 2 GM In 100 / 100 NS Inj 96 ML @ 50 mls/hr IV.SIG ONCE ONE Rx#:[id number] Levophed Inj 16 MG In NS Inj 250 / 250 234 ML @ 2 MCG/MIN 1.87 mls/hr IV.SIG TITRATE PRN Rx#:[id number] fentaNYL 10 mcg/mL Premix Drip 250 / 250 2,500 mcg In 250 ml @ 50 MCG/HR 5 mls/hr IV.SIG TITRATE PRN Rx #:[id number] Flagyl 500 MG Inj 100 ML @ 100 100 / 100 100 / 100 mls/hr IV.SIG Q6H [facility] Rx#: [id number] Flolan (30,000 ng/mL) Neb 100 100 / 100 ML In NS Inj 0 ML @ 5 mls/hr NEB Q8H [facility] Rx#:[id number] Tube Irrigant 50 / 50 Output: Urine Amount (Catheter) 450 / 450 425 / 425 Indwelling Urethral Catheter 450 / 450 425 / 425 Other: Date of Last Bowel Movement 01/12/18 01/12/18 # Incontinent Bowel Movements 1 Weight 110 kg - Imaging and Cardiology Imaging: Impressions Chest Ultrasound 01/11/18 00:00 CONCLUSION: 1. Trace fluid identified. 2. Adequate fluid for thoracentesis. Chest X-Ray 01/11/18 00:00 CONCLUSION: 1. Support equipment in satisfactory position. 2. Small basilar effusion and infiltrate on the right. 3. Stable compared to previous exam. Chest X-Ray 01/12/18 05:00 CONCLUSION: Slight interval worsening in aeration Assessment and Plan - Assessment (1) Pulmonary hypertension Code(s): I27.20 - Pulmonary hypertension, unspecified Status: Acute (2) Elevated troponin Code(s): R74.8 - Abnormal levels of other serum enzymes Status: Acute (3) Acute kidney injury Code(s): N17.9 - Acute kidney failure, unspecified Status: Acute (4) Sudden cardiac arrest Code(s): I46.9 - Cardiac arrest, cause unspecified Status: Acute (5) Paroxysmal atrial fibrillation with rapid ventricular response Code(s): I48.0 - Paroxysmal atrial fibrillation Status: Acute (6) Left bundle branch block Code(s): I44.7 - Left bundle-branch block, unspecified Status: Acute (7) Coronary artery disease Code(s): I25.10 - Atherosclerotic heart disease of [place] coronary artery without angina pectoris Status: Acute (8) Junctional rhythm Code(s): I49.8 - Other specified cardiac arrhythmias Status: Acute - Plan 01/11/2018 Shock has worsened despite LVEF only mildly impaired. Required cardioversion for AF RVR. I would like to do a cardiac cath but rising creatinin /risk of renal failure. Lungs sound much worse ? CHF CXR pending. Labs and CXR pending. 01/12/2018 Shock improved. Creatinine improving, Possible cath Tuesday. Stop amiodarone due to intermittent junctional rhythm. KCL 20meq IVPB. Magnesium is OK now.
[2018-01-13] MEDS ORDERED: Potassium Chlor 20 mEq Premix 20 MEQ/100 ML PIGGYBACK IV.SIG ONE (08:30)
[2018-01-13] MEDS: Famotidine PF Inj 20 MG/2 ML Vial IV.PUSH SCH ×2 (08:47→21:21)
[2018-01-13] MEDS: Chlorhexidine 0.12% Oral Kit 15 ML UDC OROPHARYNG SCH ×2 (08:47→21:21)
[2018-01-13] MEDS: Polyethylene Glycol 3350 17 GM Packet PO SCH ×2 (08:57→21:21)
[2018-01-13] MEDS: Senna/Docusate Sodium 8.6/50 MG Tablet PO SCH ×2 (08:57→21:21)
[2018-01-13] MEDS ORDERED: Epoprostenol (30,000/mL) Neb 80 ML in Sodium Chlor 0.9% Inj 20 ML NEB SCH (10:00)
[2018-01-13 10:51] LABS: ABG Base Excess -4.6 mmol/L (-2-2); ABG PCO2 18 mmHg (38-42); ABG PO2 177 mmHG (61-120)
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
--- NOTE | 2018-01-13 11:06 | P.DIET ---
Nutritional Evaluation Type of nutrition evaluation: initial Nutrition consult regarding: Diet Evaluation Screening comments: 01/13 NPO x3 Objective - Diagnosis shock - Objective Body Mass Index: 32.9 % IBW: 136 (IBW = 178) Body Weight Used for Calculations: IBW Energy Needs - Lower Range (kCal/kg): 22 Energy Needs - Upper Range (kCal/kg): 28 Lower Limit kCal/kg (kCals): 1,780 Upper Limit kCal/kg (kCals): 2,265 Lower Limit Protein Factor (Grams per Kg): 1.1 Upper Limit Protein Factor (Grams per Kg): 1.3 Lower Protein Needs (Protein): 89 Upper Protein Needs (Protein): 105 Fluid Factor (ml/kg): 25 Estimated Fluid Needs (ml): 2,023 Dietitian Reviewed in Medical Record: Current diet, Curent medications, Intake & Output, Labs, Medical history Diet Order: NPO Objective Comments: PMH: GERD, AFIB, CHF, COPD, testicular cancer, hyperlipidemia, neurofibrosis, osteoarthritis, s.p knee arthroscopy, CABG x3 Meds: fentanyl, flagyl, versed, zofran Labs: BUN 54, Cr 2.27, GFR 29, POC glucose 231, Ca+6.7 Assessment Assessment: Pt currently at nutritional risk r/t NPO x3 days. Pt is intubed, sedated w/ fentanyl and versed. RD to recommend nutrition support if pt remains NPO. Additional recs to follow r/t medical course. Monitor NPO status. Labs reviewed , dietitian following. Recommendations: 1. RD to recommend nutrition support if pt remains NPO 2. Additional recs to follow r/t medical course 3. Monitor NPO status 4. Dietitian following Dietitian to Monitor: Lab values, Weight change, Diet advancement, Medical course
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
--- NOTE | 2018-01-13 13:50 | P.PNNP ---
Subjective Interval history: Status post cardiac arrest resuscitated on ventilator, patient has increased LFTs, acute renal failure Physical Exam Vital signs: Vital Signs 01/12/18 14:00 01/12/18 15:00 01/12/18 15:30 Temperature Pulse Rate 88 109 H Respiratory Rate 22 22 22 Blood Pressure Pulse Oximetry 100 100 100 01/12/18 16:00 01/12/18 17:00 01/12/18 18:00 Temperature 97.7 F Pulse Rate 110 H 111 H 96 H Respiratory Rate 22 22 22 Blood Pressure Pulse Oximetry 100 100 100 01/12/18 19:00 01/12/18 20:00 01/12/18 20:11 Temperature 98.5 F Pulse Rate 102 H 93 H Respiratory Rate 22 22 23 Blood Pressure Pulse Oximetry 100 100 99 01/12/18 21:00 01/12/18 22:00 01/12/18 23:00 Temperature Pulse Rate 87 60 61 Respiratory Rate 22 22 22 Blood Pressure Pulse Oximetry 99 100 100 01/12/18 23:20 01/13/18 00:00 01/13/18 01:00 Temperature 98.6 F Pulse Rate 60 66 Respiratory Rate 22 22 22 Blood Pressure Pulse Oximetry 100 100 99 01/13/18 02:00 01/13/18 03:00 01/13/18 04:00 Temperature 99.2 F Pulse Rate 65 60 56 L Respiratory Rate 22 22 22 Blood Pressure Pulse Oximetry 100 100 100 01/13/18 04:39 01/13/18 05:00 01/13/18 06:00 Temperature Pulse Rate 57 L 54 L Respiratory Rate 22 22 22 Blood Pressure Pulse Oximetry 100 100 100 01/13/18 07:00 01/13/18 07:01 01/13/18 07:15 Temperature Pulse Rate 53 L 54 L 53 L Respiratory Rate Blood Pressure 121/56 L 98/44 L Pulse Oximetry 100 100 100 01/13/18 07:31 01/13/18 07:39 01/13/18 07:46 Temperature Pulse Rate 55 L 54 L Respiratory Rate 22 Blood Pressure 164/73 H 123/57 L Pulse Oximetry 100 100 100 01/13/18 08:00 01/13/18 08:16 01/13/18 08:31 Temperature 97.0 F L Pulse Rate 52 L 55 L 52 L Respiratory Rate Blood Pressure 103/53 L 166/72 H 96/51 L Pulse Oximetry 100 100 100 01/13/18 08:45 01/13/18 09:00 01/13/18 09:01 Temperature Pulse Rate 52 L 61 51 L Respiratory Rate Blood Pressure 110/52 L 121/65 Pulse Oximetry 100 100 100 01/13/18 09:15 01/13/18 09:30 01/13/18 09:45 Temperature Pulse Rate 52 L 53 L 53 L Respiratory Rate Blood Pressure 112/57 L 108/59 L 101/50 L Pulse Oximetry 100 100 100 01/13/18 10:00 01/13/18 10:15 01/13/18 10:30 Temperature Pulse Rate 53 L 53 L 52 L Respiratory Rate Blood Pressure 111/59 L 100/51 L 146/67 H Pulse Oximetry 100 100 100 01/13/18 11:38 Temperature Pulse Rate Respiratory Rate 20 Blood Pressure Pulse Oximetry 100 Intake & Output 01/12/18 01/13/18 01/13/18 18:59 06:59 18:59 Intake Total 2250 / 2250 2210 / 2210 350 / 350 Output Total 450 / 450 425 / 425 Balance 1800 / 1800 1785 / 1785 350 / 350 Weight 110 kg Intake: IV 2250 / 2250 2160 / 2160 350 / 350 Cordarone Inj 450 MG In D5W Inj 250 / 250 250 / 250 241 ML @ 1 MG/MIN 33.33 mls/hr IV.CONT TITRATE PRN Rx#: [id number] Heparin/D5W 25,000 U/250 mL 25, 250 / 250 000 unit In 250 ml @ Per Protocol IV.CONT TITRATE PRN Rx #:[id number] Versed Inj 50 mg In 50 ml @ 2 50 / 50 50 / 50 MG/HR 2 mls/hr IV.CONT TITRATE PRN Rx#:[id number] Sodium Bicarbonate 8.4% Inj 150 1000 / 1000 MEQ In Sterile Water for Inj 850 ML @ 75 mls/hr IV.CONT . [id number] [facility] Rx#:[id number] Pitressin Inj 40 UNIT In D5W 100 / 100 Inj 98 ML @ 0.04 UNITS/MIN 6 mls/hr IV.CONT TITRATE PRN Rx#: [id number] Azactam Inj 1,000 MG In NS Inj 100 / 100 100 / 100 100 ML @ 200 mls/hr IV.SIG Q8H [facility] Rx#:[id number] Calcium Gluconate Inj 1 GM In 110 / 110 NS Inj 100 ML @ 110 mls/hr IV. SIG ONCE ONE Rx#:[id number] Zyvox 600 mg Premix 300 ML @ 300 / 300 300 / 300 300 mls/hr IV.SIG Q12H [facility] Rx#: [id number] Magnesium Sulfate 1 gm/D5W 100 100 / 100 ml Premix 100 ML @ 100 mls/hr IV.SIG ONCE ONE Rx#:[id number] Magnesium Sulfate Inj 2 GM In 100 / 100 NS Inj 96 ML @ 50 mls/hr IV.SIG ONCE ONE Rx#:[id number] Levophed Inj 16 MG In NS Inj 250 / 250 234 ML @ 2 MCG/MIN 1.87 mls/hr IV.SIG TITRATE PRN Rx#:[id number] fentaNYL 10 mcg/mL Premix Drip 250 / 250 250 / 250 250 / 250 2,500 mcg In 250 ml @ 50 MCG/HR 5 mls/hr IV.SIG TITRATE PRN Rx #:[id number] Flagyl 500 MG Inj 100 ML @ 100 200 / 200 200 / 200 100 / 100 mls/hr IV.SIG Q6H [facility] Rx#: [id number] Flolan (30,000 ng/mL) Neb 100 100 / 100 100 / 100 ML In NS Inj 0 ML @ 5 mls/hr NEB Q8H [facility] Rx#:[id number] Tube Irrigant 50 / 50 Output: Urine Amount (Catheter) 450 / 450 425 / 425 Indwelling Urethral Catheter 450 / 450 425 / 425 Other: Date of Last Bowel Movement 01/12/18 01/12/18 01/12/18 # Incontinent Bowel Movements 1 Narrative: Sedated Fentanyl and Versed Opens eyes and tracks per nurse Chest; few rhochi. Secretions less CV S1S2 RRR only trace edema Vasopressin - on/off levo Tele intermittent junctional - AMIO D/C'd - Urinary Catheter Management Indwelling Urethral Catheter Cath placed during this visit: yes Reason for continuing: Hourly intake/output Insertion date: 01/09/18 Insertion time: 21:45 Assessment and Plan - Assessment (1) Acute renal failure Code(s): N17.9 - Acute kidney failure, unspecified Status: Acute (2) Shock Code(s): R57.9 - Shock, unspecified Status: Acute (3) Sudden cardiac arrest Code(s): I46.9 - Cardiac arrest, cause unspecified Status: Acute (4) Paroxysmal atrial fibrillation with rapid ventricular response Code(s): I48.0 - Paroxysmal atrial fibrillation Status: Acute (5) Coronary artery disease Code(s): I25.10 - Atherosclerotic heart disease of [place] coronary artery without angina pectoris Status: Acute - Plan Patient with underlying ATN due to cardiogenic shock status post CPR the patient is in acute renal failure Creatinine declining Monitor intake and output Avoid nephrotoxic agents Follow BMP Continue supportive care urine output is lower Patient has increased LFTs shock liver and acute renal failure due to cardiogenic shock Nonoliguric, calcium replace, potassium replaced Palliative care is following
--- NOTE | 2018-01-13 15:32 | ECG ---
Date Performed: 01/12/2018 Time Performed: 08:27:54 PTAGE: 67 years EKG: Sinus tachycardia. Possible left atrial abnormality Severe right axis deviation Right bundl e branch block Possible inferior infarct - age undetermined Lateral ST-T changes are nonspecific Comp ared to previous tracing, the patient is now in a Right bundle branch block Abnormal ECG PREVIOUS TRACING : 01/11/2018 12.37 DOCTOR: Ashwin Dye Interpretating Date/Time 01/13/2018 15:32:07
--- NOTE | 2018-01-13 15:38 | ECG ---
Date Performed: 01/12/2018 Time Performed: 21:19:52 PTAGE: 67 years EKG: Accelerated idioventricular rhythm. Left bundle branch block Compared to previous tracing, the patient is now in a Left bundle branch block Abnormal ECG PREVIOUS TRACING : 01/12/2018 08.27 DOCTOR: Ashwin Dye Interpretating Date/Time 01/13/2018 15:36:52
[2018-01-14] MEDS: Insulin NovoLIN Regular Correctional Sugar Inj SQ SCH ×4 (00:39→17:42)
[2018-01-14] MEDS: Oral Hygiene Kit OROPHARYNG SCH ×4 (00:40→16:25)
[2018-01-14] MEDS: Midazolam 50 MG/50 ML Inj 50 MG/50 ML BAG IV.CONT PRN ×2 (01:00→17:24)
[2018-01-14] MEDS ORDERED: Epoprostenol (30,000/mL) Neb 40 ML in Sodium Chlor 0.9% Inj 60 ML NEB SCH (02:00)
[2018-01-14] MEDS: fentaNYL 10 mcg/mL Premix Drip 2,500 MCG/250 ML BAG IV.SIG PRN ×2 (03:19→18:28)
[2018-01-14] MEDS: Chlorhexidine Gluconate 2% 1 Pack (2 Cloths) TOPICAL SCH (04:37)
[2018-01-14] MEDS: Epoprostenol (30,000/mL) Neb 60 ML in Sodium Chlor 0.9% Inj 40 ML NEB SCH ×2 (04:40→05:45)
--- NOTE | 2018-01-14 05:43 | XR ---
EXAM DATE: 01/14/2018 4:46 AM EST AGE/SEX: 67 years / Male INDICATIONS: Shortness of breath, possible pulmonary disease. CLINICAL DATA: This is the patient's subsequent encounter. Patient reports that signs and symptoms h ave been present for 1 week and indicates a pain score of Nonresponsive. MEDICAL/SURGICAL HISTORY: Cardiovascular disease. CABG. Mitral valve replacement. COMPARISON: [facility] [place]ST 1V SINGLE AP, 01/12/2018. . FINDINGS: A single AP view of the chest demonstrates no significant change. Bibasilar pulmonary infiltrates are unchanged. No effusions. Heart is normal in size. No pneumothorax. Median sternotomy wires and prost hetic heart valve. Tip of the endotracheal tube 4 cm from the estrada. Nasogastric tube courses off th e inferior margin of the film. CONCLUSION: Unchanged bibasilar consolidations. Electronically signed by: Coleman Bennett MD 01/14/2018 5:42 AM EST
[2018-01-14] MEDS: Hydrocortisone Sod Succinate 100 MG Vial IV.PUSH SCH ×3 (05:48→20:59)
[2018-01-14 06:06] LABS: Eos % (Auto) 0.1 % (0.0-4.0); Hematocrit 30.1 % (39.0-51.0); Hemoglobin 10.3 gm/dL (13.0-17.0); Lymph # (Auto) 0.5 th/mm3 (1.0-4.8); Lymph % (Auto) 3.3 % (9.0-44.0); Mean Corpuscular HGB Conc 34.1 % (32.0-36.0); Mean Corpuscular Hemoglobin 31.5 pg (27.0-34.0); Mean Corpuscular Volume 92.4 fL (80.0-100.0); Mean Platelet Volume 9.1 fL (7.0-11.0); Mono # (Auto) 0.9 th/mm3 (0.0-0.9); Mono % (Auto) 5.9 % (0.0-8.0); Neut # (Auto) 13.2 th/mm3 (1.8-7.7); Neut % (Auto) 90.7 % (16.0-70.0); Platelet Count 128 th/mm3 (150-450); Red Blood Count 3.26 mil/mm3 (4.50-5.90); White Blood Count 14.6 th/mm3 (4.0-11.0)
[2018-01-14 06:10] LABS: Activated Partial Thrombo Time 68.5 sec (23.4-31.7); INR 1.5 Ratio; Prothrombin Time 15.4 sec (9.8-11.6)
[2018-01-14 06:24] LABS: Albumin 1.8 g/dL (3.4-5.0); Calcium 6.6 mg/dL (8.5-10.1); Potassium 3.5 meq/L (3.5-5.1)
[2018-01-14 06:25] LABS: Phosphorus 1.5 mg/dL (2.5-4.9)
[2018-01-14 06:27] LABS: Total Protein 5.5 g/dL (6.4-8.2)
[2018-01-14] MEDS: Heparin Drip 25,000 UNIT/250 ML BAG IV.CONT PRN (07:15)
[2018-01-14 07:42] LABS: Lymphocytes 2 % (9-44); Monocytes 3 % (0-8); Myelocytes 2 % (0-0); Platelet Morphology Normal (Normal); RBC Morphology Normal (Normal); Tallied Nucleated RBC 1 (0-0)
--- NOTE | 2018-01-14 09:07 | P.PNCA ---
Subjective Interval history: Intubated. Sedated. Medications and Allergies Active Medications: Active Medications Acetaminophen (Tylenol) 650 mg PO Q6H PRN PRN Reason: TEMPERATURE > 101 F Last Admin: 01/11/18 15:50 Dose: 650 mg Albuterol (Duoneb Neb (Prn)) 1 ampul NEB Q2HR NEB PRN PRN Reason: WHEEZING Aspirin (Aspirin Chew) 81 mg PO DAILY [facility] Last Admin: 01/13/18 08:47 Dose: 81 mg Bisacodyl (Dulcolax Supp) 10 mg RECTAL DAILY PRN PRN Reason: if no BM in last 24h Chlorhexidine Gluconate (Peridex 0.12% Oral Kit) 15 ml OROPHARYNG BID@0800, 2000 [facility] Last Admin: 01/13/18 21:21 Dose: 15 ml Chlorhexidine Gluconate (Chlorhexidine 2% Cloth) 3 pack TOPICAL DAILY@0400 [facility] Stop: 01/15/18 03:59 Last Admin: 01/14/18 04:37 Dose: 3 pack Chlorhexidine Gluconate (Chlorhexidine 2% Cloth) 3 pack TOPICAL DAILY@0400 PRN PRN Reason: Extra cloth needed Stop: 01/15/18 03:59 Dextrose (D50w Vial) 50 ml IV.PUSH UNSCH PRN PRN Reason: PER HYPOGLYCEMIA PROTOCOL Famotidine (Pepcid Pf Inj) 10 mg IV.PUSH Q12HR [facility] Last Admin: 01/13/18 21:21 Dose: 10 mg Glucagon (Glucagon Inj) 1 mg OTHER PRN PRN PRN Reason: for Hypoglycemia Protocol Hydrocortisone Sodium Succinate (Solucortef Inj) 100 mg IV.PUSH Q8HR [facility] Last Admin: 01/14/18 05:48 Dose: 100 mg Fentanyl (Fentanyl 10 Mcg/Ml Premix Drip) 2,500 mcg in 250 mls @ 5 mls/hr IV.SIG TITRATE PRN; Protocol PRN Reason: Per Protocol Last Admin: 01/14/18 03:19 Dose: 200 mcg/hr, 20 mls/hr Midazolam HCl (Versed Inj) 50 mg in 50 mls @ 2 mls/hr IV.CONT TITRATE PRN; Protocol PRN Reason: Per Protocol Last Admin: 01/14/18 01:00 Dose: 4 mg/hr, 4 mls/hr Dopamine HCl/Dextrose (Dopamine 800 Mg/500 Ml Premix) 800 mg in 500 mls @ 11.25 mls/hr IV.CONT TITRATE PRN; Protocol PRN Reason: Per Protocol Last Titration: 01/10/18 17:30 Dose: 0 mcg/kg/min, 0 mls/hr Aztreonam 1,000 mg/ Sodium (Chloride) 100 mls @ 200 mls/hr IV.SIG Q8H [facility] Last Infusion: 01/14/18 07:12 Dose: Infused Heparin Sodium/Dextrose (Heparin/D5w 25,000 U/250 Ml) 25,000 unit in 250 mls @ 0 mls/hr IV.CONT TITRATE PRN; Protocol PRN Reason: Per Protocol Last Admin: 01/14/18 07:15 Dose: 800 units/hr, 8 mls/hr Magnesium Sulfate 2 gm/ Sodium (Chloride) 100 mls @ 50 mls/hr IV.SIG UNSCH PRN PRN Reason: For Magnesium 1.2 - 1.6 mg/dL Metronidazole/Sodium Chloride (Flagyl 500 Mg Inj) 100 mls @ 100 mls/hr IV.SIG Q6H [facility] Last Infusion: 01/14/18 07:12 Dose: Infused Potassium Chloride (Kcl 40 Meq Premix Inj) 40 meq in 100 mls @ 25 mls/hr IV.SIG Q2H PRN PRN Reason: For Potassium 2.8 - 3.2 mEq/L Last Infusion: 01/14/18 07:14 Dose: Infused Potassium Chloride (Kcl 20 Meq Premix Inj) 20 meq in 100 mls @ 50 mls/hr IV.SIG Q2H PRN PRN Reason: For Potassium 3.3 - 3.5 mEq/L Last Infusion: 01/14/18 06:24 Dose: Infused Potassium Chloride (Kcl 40 Meq Premix Inj) 40 meq in 100 mls @ 25 mls/hr IV.SIG UNSCH PRN PRN Reason: For Potassium 3.3 - 3.5 mEq/L Potassium Phosphate 30 mmol/ (Sodium Chloride) 260 mls @ 42 mls/hr IV.SIG UNSCH PRN PRN Reason: SEE LABEL COMMENTS Sodium Phosphate 30 mmol/ (Sodium Chloride) 260 mls @ 42 mls/hr IV.SIG UNSCH PRN PRN Reason: For Phosphorus < 2.5 mg/dL Magnesium Sulfate 4 gm/ Sodium (Chloride) 100 mls @ 50 mls/hr IV.SIG UNSCH PRN PRN Reason: For Magnesium 0.9 - 1.1 mg/dL Potassium Chloride (Kcl 20 Meq Premix Inj) 20 meq in 100 mls @ 50 mls/hr IV.SIG Q2H PRN PRN Reason: For Potassium 2.8 - 3.2 mEq/L Vasopressin 40 unit/ Dextrose 100 mls @ 6 mls/hr IV.CONT TITRATE PRN; Protocol PRN Reason: Per Protocol Last Titration: 01/13/18 14:00 Dose: 0 units/min, 0 mls/hr Norepinephrine Bitartrate 16 (mg/ Sodium Chloride) 250 mls @ 1.87 mls/hr IV.SIG TITRATE PRN; Protocol PRN Reason: Per Protocol Last Titration: 01/14/18 04:00 Dose: 2 mcg/min, 1.87 mls/hr Sodium Bicarbonate 150 meq/ (Sterile Water) 1,000 mls @ 75 mls/hr IV.CONT .[id number] [facility] Last Admin: 01/13/18 17:21 Dose: 50 mls/hr Phenylephrine HCl 160 mg/ (Dextrose) 500 mls @ 7.5 mls/hr IV.CONT TITRATE PRN; Protocol PRN Reason: Per Protocol Last Titration: 01/14/18 07:13 Dose: Infused Linezolid (Zyvox 600 Mg Premix) 300 mls @ 300 mls/hr IV.SIG Q12H [facility] Last Infusion: 01/14/18 06:24 Dose: Infused Epoprostenol Sodium 40 ml/ (Sodium Chloride) 100 mls @ 5 mls/hr NEB Q8H [facility] Stop: 01/14/18 09:59 Epoprostenol Sodium 20 ml/ (Sodium Chloride) 100 mls @ 5 mls/hr NEB Q8H [facility] Stop: 01/14/18 17:59 Insulin Human Regular (Novolin R Correctional Sugar Inj) 0 units SQ Q6HR [facility]; Protocol Last Admin: 01/14/18 07:18 Dose: Not Given Lactulose (Lactulose Liq) 30 ml PO BID [facility] Last Admin: 01/13/18 21:21 Dose: 30 ml Magnesium Oxide (Mag-Ox) 800 mg PO UNSCH PRN PRN Reason: For Magnesium 1.2 - 1.6 mg/dL Miscellaneous Medication () 1 each OROPHARYNG 0000,0400,1200,1600 [facility] Last Admin: 01/14/18 04:37 Dose: 1 each Ondansetron HCl (Zofran Inj) 4 mg IV.PUSH Q6H PRN PRN Reason: NAUSEA OR VOMITING Polyethylene Glycol (Miralax) 17 gm PO BID [facility] Last Admin: 01/13/18 21:21 Dose: 17 gm Potassium Bicarb/Potassium Chloride (K-Lyte Cl Eff) 50 meq PO UNSCH PRN PRN Reason: For Potassium 3.3 - 3.5 mEq/L Potassium Phosphate (K-Phos Original) 2,000 mg PO Q4H PRN PRN Reason: Phosphorus Less Than 2.5 mg/dL Potassium Phosphate (K-Phos Original) 2,000 mg PO UNSCH PRN PRN Reason: SEE LABEL COMMENTS Senna/Docusate Sodium (Merari-Colace) 1 tab PO BID [facility] Last Admin: 01/13/18 21:21 Dose: 1 tab Sodium Chloride (Ns Flush) 2 ml IV.FLUSH UNSCH PRN PRN Reason: FLUSH AFTER USING IV ACCESS Sodium Chloride (Ns Flush) 2 ml IV.FLUSH UNSCH PRN PRN Reason: FLUSH AFTER USING IV ACCESS Terbutaline Sulfate (Brethine Inj) 1 mg SQ ONCE PRN PRN Reason: Extravasation Terbutaline Sulfate (Brethine Inj) 1 mg SQ UNSCH PRN PRN Reason: For Extravasation Allergies Allergy/AdvReac Type Severity Reaction Status Date / Time lorazepam Allergy Severe Confusion Verified 01/09/18 11:21 morphine Allergy Severe Confusion Verified 01/09/18 11:21 penicillin G Allergy Mild UNKNOWN Verified 01/09/18 11:21 clonazepam Allergy Unknown confusion Verified 01/09/18 11:21 Home Medications Medication Instructions Recorded Confirmed Type Eliquis 01/09/18 History Physical Exam Vital signs: Vital Signs 01/13/18 09:15 01/13/18 09:30 01/13/18 09:45 Temperature Pulse Rate 52 L 53 L 53 L Respiratory Rate Blood Pressure 112/57 L 108/59 L 101/50 L Pulse Oximetry 100 100 100 01/13/18 10:00 01/13/18 10:15 01/13/18 10:30 Temperature Pulse Rate 53 L 53 L 52 L Respiratory Rate Blood Pressure 111/59 L 100/51 L 146/67 H Pulse Oximetry 100 100 100 01/13/18 10:45 01/13/18 11:00 01/13/18 11:15 Temperature Pulse Rate 53 L 53 L 53 L Respiratory Rate Blood Pressure 133/62 126/58 L 113/51 L Pulse Oximetry 100 100 100 01/13/18 11:30 01/13/18 11:38 01/13/18 11:45 Temperature Pulse Rate 52 L 52 L Respiratory Rate 20 Blood Pressure 113/56 L 109/56 L Pulse Oximetry 100 100 100 01/13/18 12:00 01/13/18 12:15 01/13/18 12:30 Temperature Pulse Rate 53 L 53 L 55 L Respiratory Rate Blood Pressure 99/55 L 118/60 136/64 Pulse Oximetry 100 100 100 01/13/18 12:45 01/13/18 13:00 01/13/18 13:15 Temperature Pulse Rate 55 L 55 L 56 L Respiratory Rate Blood Pressure 140/66 147/65 H 154/70 H Pulse Oximetry 100 100 100 01/13/18 13:30 01/13/18 13:45 01/13/18 14:00 Temperature Pulse Rate 55 L 56 L 56 L Respiratory Rate Blood Pressure 159/70 H 150/69 H 147/63 H Pulse Oximetry 100 100 100 01/13/18 14:15 01/13/18 14:30 01/13/18 14:45 Temperature Pulse Rate 54 L 57 L 59 L Respiratory Rate Blood Pressure 126/58 L 119/59 L 152/71 H Pulse Oximetry 100 100 99 01/13/18 15:00 01/13/18 15:15 01/13/18 15:30 Temperature Pulse Rate 60 61 61 Respiratory Rate Blood Pressure 135/62 135/65 134/64 Pulse Oximetry 99 99 99 01/13/18 15:45 01/13/18 15:47 01/13/18 16:00 Temperature Pulse Rate 60 59 L Respiratory Rate 18 Blood Pressure 121/55 L 116/59 L Pulse Oximetry 100 99 99 01/13/18 16:15 01/13/18 16:30 01/13/18 17:00 Temperature Pulse Rate 59 L 59 L 61 Respiratory Rate 18 Blood Pressure 117/56 L 116/55 L Pulse Oximetry 99 99 100 01/13/18 18:00 01/13/18 19:00 01/13/18 20:00 Temperature 97.4 F L Pulse Rate 58 L 54 L 56 L Respiratory Rate 18 18 18 Blood Pressure Pulse Oximetry 98 98 96 01/13/18 20:51 01/13/18 21:00 01/13/18 22:00 Temperature Pulse Rate 58 L 52 L Respiratory Rate 19 18 18 Blood Pressure Pulse Oximetry 99 98 100 01/13/18 23:00 01/14/18 00:00 01/14/18 00:09 Temperature 97.4 F L Pulse Rate 52 L 53 L Respiratory Rate 18 18 18 Blood Pressure Pulse Oximetry 100 100 100 01/14/18 01:00 01/14/18 02:00 01/14/18 03:00 Temperature Pulse Rate 53 L 55 L 55 L Respiratory Rate 18 18 18 Blood Pressure Pulse Oximetry 100 99 100 01/14/18 04:00 01/14/18 04:21 01/14/18 05:00 Temperature 98.2 F Pulse Rate 54 L 54 L Respiratory Rate 18 19 18 Blood Pressure Pulse Oximetry 98 99 100 01/14/18 06:00 01/14/18 07:36 Temperature Pulse Rate 54 L Respiratory Rate 18 18 Blood Pressure Pulse Oximetry 99 100 Intake & Output 01/13/18 01/14/18 01/14/18 18:59 06:59 18:59 Intake Total 2200 / 2200 1350 / 1350 650 / 650 Output Total 500 / 500 1200 / 1200 Balance 1700 / 1700 150 / 150 650 / 650 Intake: IV 2200 / 2200 1350 / 1350 650 / 650 Cordarone Inj 450 MG In D5W Inj 250 / 250 241 ML @ 1 MG/MIN 33.33 mls/hr IV.CONT TITRATE PRN Rx#: [id number] Heparin/D5W 25,000 U/250 mL 25, 50 / 50 000 unit In 250 ml @ Per Protocol IV.CONT TITRATE PRN Rx #:[id number] Versed Inj 50 mg In 50 ml @ 2 50 / 50 MG/HR 2 mls/hr IV.CONT TITRATE PRN Rx#:[id number] Neosynephrine Inj 160 MG In D5W 200 / 200 Inj 484 ML @ 40 MCG/MIN 7.5 mls/hr IV.CONT TITRATE PRN Rx#: [id number] Sodium Bicarbonate 8.4% Inj 150 1000 / 1000 MEQ In Sterile Water for Inj 850 ML @ 75 mls/hr IV.CONT . [id number] [facility] Rx#:[id number] Azactam Inj 1,000 MG In NS Inj 200 / 200 100 / 100 100 / 100 100 ML @ 200 mls/hr IV.SIG Q8H [facility] Rx#:[id number] Zyvox 600 mg Premix 300 ML @ 300 / 300 300 / 300 300 mls/hr IV.SIG Q12H [facility] Rx#: [id number] Levophed Inj 16 MG In NS Inj 250 / 250 234 ML @ 2 MCG/MIN 1.87 mls/hr IV.SIG TITRATE PRN Rx#:[id number] KCl 20 mEq Premix Inj 20 meq In 200 / 200 100 ml @ 50 mls/hr IV.SIG Q2H PRN Rx#:[id number] KCl 40 mEq Premix Inj 40 meq In 100 / 100 100 ml @ 25 mls/hr IV.SIG Q2H PRN Rx#:[id number] fentaNYL 10 mcg/mL Premix Drip 250 / 250 250 / 250 2,500 mcg In 250 ml @ 50 MCG/HR 5 mls/hr IV.SIG TITRATE PRN Rx #:[id number] Flagyl 500 MG Inj 100 ML @ 100 200 / 200 200 / 200 100 / 100 mls/hr IV.SIG Q6H [facility] Rx#: [id number] Output: Urine Amount (Catheter) 500 / 500 1200 / 1200 Indwelling Urethral Catheter 500 / 500 1200 / 1200 Other: Date of Last Bowel Movement 01/12/18 01/12/18 - Constitutional Comments: Intubated. Sedated. - Routine Neck Exam Comments: Cervical collar in place. - Routine Respiratory Exam Comments: Lungs clear anteriorly. - Routine Cardiovascular Exam Present: RRR, S1, S2. Absent: murmur, gallop - Routine Abdominal Exam Present: soft. Absent: organomegaly Comments: Scant BS. - Routine Extremities Exam Absent: cyanosis, clubbing, edema - Urinary Catheter Management Indwelling Urethral Catheter Cath placed during this visit: yes Reason for continuing: Acute urinary retention Insertion date: 01/09/18 Insertion time: 21:45 Results 01/14/18 05:00 01/14/18 05:00 Cardiac Enzymes 01/12/18 01/13/18 01/14/18 Range/Units 11:30 05:00 05:00 AST 273 H 282 H 96 H (15-37) U/L Coagulation 01/12/18 01/13/18 01/13/18 Range/Units 23:00 05:00 05:00 PT 19.2 H (9.8-11.6) sec APTT 74.5 H 61.8 H (23.4-31.7) sec 01/14/18 Range/Units 05:00 PT 15.4 H (9.8-11.6) sec APTT 68.5 H (23.4-31.7) sec CBC 01/13/18 01/14/18 Range/Units 05:00 05:00 WBC 9.5 D 14.6 H D (4.0-11.0) th/mm3 RBC 3.17 L 3.26 L (4.50-5.90) mil/mm3 Hgb 10.2 L D 10.3 L (13.0-17.0) gm/dL Hct 29.6 L 30.1 L (39.0-51.0) % Plt Count 126 L D 128 L (150-450) th/mm3 Neut # (Auto) 8.5 H 13.2 H (1.8-7.7) th/mm3 Lymph # (Auto) 0.5 L 0.5 L (1.0-4.8) th/mm3 [place] # (Auto) 0.6 0.9 (0.0-0.9) th/mm3 Eos # (Auto) 0.0 0.0 (0.0-0.4) th/mm3 Baso # (Auto) 0.0 0.0 (0.0-0.2) th/mm3 Comprehensive Metabolic Panel 01/12/18 01/12/18 01/12/18 Range/Units 11:30 22:00 22:00 Sodium 133 L 135 L (136-145) meq/L Potassium 4.0 Cancelled 3.5 (3.5-5.1) meq/L Chloride 99 99 (98-107) meq/L Carbon Dioxide 16.8 L 17.6 L (21.0-32.0) meq/L BUN 51 H 51 H (7-18) mg/dL Creatinine 2.84 H 2.48 H (0.60-1.30) mg/dL Calcium 6.7 L* 6.5 L* (8.5-10.1) mg/dL AST 273 H (15-37) U/L ALT 199 H (12-78) U/L Alkaline Phosphatase 77 (45-117) U/L Total Protein 5.8 L 5.5 L (6.4-8.2) g/dL Albumin 2.1 L (3.4-5.0) g/dL 01/13/18 01/13/18 01/14/18 Range/Units 05:00 14:50 05:00 Sodium 134 L 136 (136-145) meq/L Potassium 3.2 L 2.9 L* 3.5 (3.5-5.1) meq/L Chloride 98 100 (98-107) meq/L Carbon Dioxide 18.0 L 25.0 (21.0-32.0) meq/L BUN 54 H 52 H (7-18) mg/dL Creatinine 2.27 H 1.68 H (0.60-1.30) mg/dL Calcium 6.7 L* 6.6 L* (8.5-10.1) mg/dL AST 282 H 96 H (15-37) U/L ALT 279 H 228 H (12-78) U/L Alkaline Phosphatase 67 66 (45-117) U/L Total Protein 5.5 L 5.5 L (6.4-8.2) g/dL Albumin 1.9 L 1.8 L (3.4-5.0) g/dL Intake and Output 01/13/18 01/14/18 01/14/18 22:59 06:59 14:59 Intake Total 850 / 850 900 / 900 650 / 650 Output Total 500 / 500 1200 / 1200 Balance 350 / 350 -300 / -300 650 / 650 Intake: IV 850 / 850 900 / 900 650 / 650 Cordarone Inj 450 MG In D5W Inj 250 / 250 241 ML @ 1 MG/MIN 33.33 mls/hr IV.CONT TITRATE PRN Rx#: [id number] Heparin/D5W 25,000 U/250 mL 25, 50 / 50 000 unit In 250 ml @ Per Protocol IV.CONT TITRATE PRN Rx #:[id number] Versed Inj 50 mg In 50 ml @ 2 50 / 50 MG/HR 2 mls/hr IV.CONT TITRATE PRN Rx#:[id number] Neosynephrine Inj 160 MG In D5W 200 / 200 Inj 484 ML @ 40 MCG/MIN 7.5 mls/hr IV.CONT TITRATE PRN Rx#: [id number] Azactam Inj 1,000 MG In NS Inj 100 / 100 100 / 100 100 / 100 100 ML @ 200 mls/hr IV.SIG Q8H [facility] Rx#:[id number] Zyvox 600 mg Premix 300 ML @ 300 / 300 300 / 300 300 mls/hr IV.SIG Q12H [facility] Rx#: [id number] KCl 20 mEq Premix Inj 20 meq In 100 / 100 100 / 100 100 ml @ 50 mls/hr IV.SIG Q2H PRN Rx#:[id number] KCl 40 mEq Premix Inj 40 meq In 100 / 100 100 ml @ 25 mls/hr IV.SIG Q2H PRN Rx#:[id number] fentaNYL 10 mcg/mL Premix Drip 250 / 250 2,500 mcg In 250 ml @ 50 MCG/HR 5 mls/hr IV.SIG TITRATE PRN Rx #:[id number] Flagyl 500 MG Inj 100 ML @ 100 100 / 100 100 / 100 100 / 100 mls/hr IV.SIG Q6H [facility] Rx#: [id number] Output: Urine Amount (Catheter) 500 / 500 1200 / 1200 Indwelling Urethral Catheter 500 / 500 1200 / 1200 Other: Date of Last Bowel Movement 01/12/18 01/12/18 - Imaging and Cardiology Imaging: Impressions Chest X-Ray 01/14/18 05:00 CONCLUSION: Unchanged bibasilar consolidations. Assessment and Plan - Assessment (1) Pulmonary hypertension Code(s): I27.20 - Pulmonary hypertension, unspecified Status: Acute (2) Elevated troponin Code(s): R74.8 - Abnormal levels of other serum enzymes Status: Acute (3) Acute kidney injury Code(s): N17.9 - Acute kidney failure, unspecified Status: Acute (4) Sudden cardiac arrest Code(s): I46.9 - Cardiac arrest, cause unspecified Status: Acute (5) Paroxysmal atrial fibrillation with rapid ventricular response Code(s): I48.0 - Paroxysmal atrial fibrillation Status: Acute (6) Left bundle branch block Code(s): I44.7 - Left bundle-branch block, unspecified Status: Acute (7) Coronary artery disease Code(s): I25.10 - Atherosclerotic heart disease of [place] coronary artery without angina pectoris Status: Acute (8) Junctional rhythm Code(s): I49.8 - Other specified cardiac arrhythmias Status: Acute - Plan 01/11/2018 Shock has worsened despite LVEF only mildly impaired. Required cardioversion for AF RVR. I would like to do a cardiac cath but rising creatinin /risk of renal failure. Lungs sound much worse ? CHF CXR pending. Labs and CXR pending. 01/12/2018 Shock improved. Creatinine improving, Possible cath Tuesday. Stop amiodarone due to intermittent junctional rhythm. KCL 20meq IVPB. Magnesium is OK now. 01/14/18 Hemodynamically continues to improve. Cardiac status overall stable. Renal indices also improving. Currently in NSR. Recommend no changes. Possibly cardiac cath Tuesday.
[2018-01-14] MEDS: Potassium Phosphate 500 MG Soluble Tablet PO PRN (09:56)
[2018-01-14] MEDS: Polyethylene Glycol 3350 17 GM Packet PO SCH ×2 (09:56→20:58)
[2018-01-14] MEDS: Chlorhexidine 0.12% Oral Kit 15 ML UDC OROPHARYNG SCH ×2 (09:57→19:16)
[2018-01-14] MEDS: Famotidine PF Inj 20 MG/2 ML Vial IV.PUSH SCH ×2 (09:58→20:58)
[2018-01-14] MEDS: Senna/Docusate Sodium 8.6/50 MG Tablet PO SCH ×2 (09:58→20:58)
[2018-01-14] MEDS ORDERED: Epoprostenol (30,000/mL) Neb 20 ML in Sodium Chlor 0.9% Inj 80 ML NEB SCH (10:00)
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
--- NOTE | 2018-01-14 12:41 | P.PNNP ---
Subjective Interval history: remains intubated Physical Exam Vital signs: Vital Signs 01/13/18 12:45 01/13/18 13:00 01/13/18 13:15 Temperature Pulse Rate 55 L 55 L 56 L Respiratory Rate Blood Pressure 140/66 147/65 H 154/70 H Pulse Oximetry 100 100 100 01/13/18 13:30 01/13/18 13:45 01/13/18 14:00 Temperature Pulse Rate 55 L 56 L 56 L Respiratory Rate Blood Pressure 159/70 H 150/69 H 147/63 H Pulse Oximetry 100 100 100 01/13/18 14:15 01/13/18 14:30 01/13/18 14:45 Temperature Pulse Rate 54 L 57 L 59 L Respiratory Rate Blood Pressure 126/58 L 119/59 L 152/71 H Pulse Oximetry 100 100 99 01/13/18 15:00 01/13/18 15:15 01/13/18 15:30 Temperature Pulse Rate 60 61 61 Respiratory Rate Blood Pressure 135/62 135/65 134/64 Pulse Oximetry 99 99 99 01/13/18 15:45 01/13/18 15:47 01/13/18 16:00 Temperature Pulse Rate 60 59 L Respiratory Rate 18 Blood Pressure 121/55 L 116/59 L Pulse Oximetry 100 99 99 01/13/18 16:15 01/13/18 16:30 01/13/18 17:00 Temperature Pulse Rate 59 L 59 L 61 Respiratory Rate 18 Blood Pressure 117/56 L 116/55 L Pulse Oximetry 99 99 100 01/13/18 18:00 01/13/18 19:00 01/13/18 20:00 Temperature 97.4 F L Pulse Rate 58 L 54 L 56 L Respiratory Rate 18 18 18 Blood Pressure Pulse Oximetry 98 98 96 01/13/18 20:51 01/13/18 21:00 01/13/18 22:00 Temperature Pulse Rate 58 L 52 L Respiratory Rate 19 18 18 Blood Pressure Pulse Oximetry 99 98 100 01/13/18 23:00 01/14/18 00:00 01/14/18 00:09 Temperature 97.4 F L Pulse Rate 52 L 53 L Respiratory Rate 18 18 18 Blood Pressure Pulse Oximetry 100 100 100 01/14/18 01:00 01/14/18 02:00 01/14/18 03:00 Temperature Pulse Rate 53 L 55 L 55 L Respiratory Rate 18 18 18 Blood Pressure Pulse Oximetry 100 99 100 01/14/18 04:00 01/14/18 04:21 01/14/18 04:45 Temperature 98.2 F Pulse Rate 54 L 54 L Respiratory Rate 18 19 Blood Pressure 153/68 H Pulse Oximetry 98 99 100 01/14/18 05:00 01/14/18 05:15 01/14/18 05:30 Temperature Pulse Rate 54 L 54 L 55 L Respiratory Rate 18 Blood Pressure 159/77 H 161/79 H 162/81 H Pulse Oximetry 100 100 100 01/14/18 05:45 01/14/18 06:00 01/14/18 06:15 Temperature Pulse Rate 54 L 54 L 54 L Respiratory Rate 18 Blood Pressure 163/85 H 138/73 152/77 H Pulse Oximetry 100 99 99 01/14/18 06:31 01/14/18 06:46 01/14/18 07:00 Temperature Pulse Rate 51 L 51 L 51 L Respiratory Rate Blood Pressure 111/56 L 127/60 128/61 Pulse Oximetry 99 99 100 01/14/18 07:15 01/14/18 07:30 01/14/18 07:36 Temperature Pulse Rate 51 L 51 L Respiratory Rate 18 Blood Pressure 127/61 134/67 Pulse Oximetry 100 100 100 01/14/18 07:45 01/14/18 08:00 01/14/18 08:15 Temperature 97.5 F L Pulse Rate 50 L 50 L 51 L Respiratory Rate Blood Pressure 148/66 H 141/65 H 139/68 Pulse Oximetry 100 100 100 01/14/18 08:30 01/14/18 08:45 01/14/18 09:00 Temperature Pulse Rate 51 L 51 L 50 L Respiratory Rate Blood Pressure 138/70 136/71 142/71 H Pulse Oximetry 100 100 100 01/14/18 09:15 01/14/18 09:30 01/14/18 09:45 Temperature Pulse Rate 54 L 54 L 55 L Respiratory Rate Blood Pressure 193/91 H 193/85 H 177/79 H Pulse Oximetry 99 99 99 01/14/18 10:00 01/14/18 10:16 01/14/18 10:30 Temperature Pulse Rate 54 L 54 L 55 L Respiratory Rate Blood Pressure 153/68 H 127/61 106/53 L Pulse Oximetry 99 100 98 01/14/18 10:45 01/14/18 11:00 01/14/18 11:01 Temperature Pulse Rate 56 L 56 L 55 L Respiratory Rate Blood Pressure 118/55 L 149/67 H Pulse Oximetry 98 99 98 01/14/18 11:29 Temperature Pulse Rate Respiratory Rate 19 Blood Pressure Pulse Oximetry 99 Intake & Output 01/13/18 01/14/18 01/14/18 18:59 06:59 18:59 Intake Total 2200 / 2200 1350 / 1350 650 / 650 Output Total 500 / 500 1200 / 1200 Balance 1700 / 1700 150 / 150 650 / 650 Intake: IV 2200 / 2200 1350 / 1350 650 / 650 Cordarone Inj 450 MG In D5W Inj 250 / 250 241 ML @ 1 MG/MIN 33.33 mls/hr IV.CONT TITRATE PRN Rx#: [id number] Heparin/D5W 25,000 U/250 mL 25, 50 / 50 000 unit In 250 ml @ Per Protocol IV.CONT TITRATE PRN Rx #:[id number] Versed Inj 50 mg In 50 ml @ 2 50 / 50 MG/HR 2 mls/hr IV.CONT TITRATE PRN Rx#:[id number] Neosynephrine Inj 160 MG In D5W 200 / 200 Inj 484 ML @ 40 MCG/MIN 7.5 mls/hr IV.CONT TITRATE PRN Rx#: [id number] Sodium Bicarbonate 8.4% Inj 150 1000 / 1000 MEQ In Sterile Water for Inj 850 ML @ 75 mls/hr IV.CONT . [id number] BLANCA Rx#:[id number] Azactam Inj 1,000 MG In NS Inj 200 / 200 100 / 100 100 / 100 100 ML @ 200 mls/hr IV.SIG Q8H BLANCA Rx#:[id number] Zyvox 600 mg Premix 300 ML @ 300 / 300 300 / 300 300 mls/hr IV.SIG Q12H [facility]ANCA Rx#: [id number] Levophed Inj 16 MG In NS Inj 250 / 250 234 ML @ 2 MCG/MIN 1.87 mls/hr IV.SIG TITRATE PRN Rx#:[id number] KCl 20 mEq Premix Inj 20 meq In 200 / 200 100 ml @ 50 mls/hr IV.SIG Q2H PRN Rx#:[id number] KCl 40 mEq Premix Inj 40 meq In 100 / 100 100 ml @ 25 mls/hr IV.SIG Q2H PRN Rx#:[id number] fentaNYL 10 mcg/mL Premix Drip 250 / 250 250 / 250 2,500 mcg In 250 ml @ 50 MCG/HR 5 mls/hr IV.SIG TITRATE PRN Rx #:[id number] Flagyl 500 MG Inj 100 ML @ 100 200 / 200 200 / 200 100 / 100 mls/hr IV.SIG Q6H BLANCA Rx#: [id number] Output: Urine Amount (Catheter) 500 / 500 1200 / 1200 Indwelling Urethral Catheter 500 / 500 1200 / 1200 Other: Date of Last Bowel Movement 01/12/18 01/12/18 01/12/18 - Constitutional no acute distress - Routine HEENT Exam Head: Present: normocephalic ENT: Present: mucous membranes moist - Routine Neck Exam Present: trauma - Routine Respiratory Exam Present: decreased breath sounds - Routine Cardiovascular Exam Present: RRR - Routine Abdominal Exam Present: soft - Routine Skin Exam Present: intact - Detailed Neurological Exam: Coma Scale Eye Opening: None Verbal Response: None Motor Response: None [place] Coma Scale Total: 3 - Urinary Catheter Management Indwelling Urethral Catheter Cath placed during this visit: yes Reason for continuing: Acute urinary retention Insertion date: 01/09/18 Insertion time: 21:45 Assessment and Plan - Assessment (1) Acute renal failure Code(s): N17.9 - Acute kidney failure, unspecified Status: Acute (2) Shock Code(s): R57.9 - Shock, unspecified Status: Acute (3) Sudden cardiac arrest Code(s): I46.9 - Cardiac arrest, cause unspecified Status: Acute (4) Paroxysmal atrial fibrillation with rapid ventricular response Code(s): I48.0 - Paroxysmal atrial fibrillation Status: Acute (5) Coronary artery disease Code(s): I25.10 - Atherosclerotic heart disease of [place] coronary artery without angina pectoris Status: Acute - Plan Patient with underlying ATN due to cardiogenic shock status post CPR the patient is in acute renal failure Creatinine improving, UOP improving Continue supportive care. Off IVFs now Monitor intake and output Avoid nephrotoxic agents Follow BMP Possible cardiac cath if stable this week
[2018-01-15] MEDS: Oral Hygiene Kit OROPHARYNG SCH ×5 (00:02→23:55)
[2018-01-15] MEDS: Insulin NovoLIN Regular Correctional Sugar Inj SQ SCH ×5 (00:03→23:55)
[2018-01-15] MEDS ORDERED: Epoprostenol (30,000/mL) Neb 20 ML in Sodium Chlor 0.9% Inj 80 ML NEB SCH (04:30)
[2018-01-15 05:32] LABS: Baso % (Auto) 0.1 % (0.0-2.0); Eos % (Auto) 0.1 % (0.0-4.0); Hematocrit 29.7 % (39.0-51.0); Hemoglobin 10.1 gm/dL (13.0-17.0); Lymph # (Auto) 0.4 th/mm3 (1.0-4.8); Lymph % (Auto) 3.3 % (9.0-44.0); Mean Corpuscular Volume 94.2 fL (80.0-100.0); Mean Platelet Volume 9.4 fL (7.0-11.0); Mono # (Auto) 0.8 th/mm3 (0.0-0.9); Mono % (Auto) 7.3 % (0.0-8.0); Neut # (Auto) 9.5 th/mm3 (1.8-7.7); Neut % (Auto) 89.2 % (16.0-70.0); Platelet Count 106 th/mm3 (150-450); Red Blood Count 3.15 mil/mm3 (4.50-5.90); Red Cell Distribution Width 16.8 % (11.6-17.2); White Blood Count 10.6 th/mm3 (4.0-11.0)
[2018-01-15 05:34] LABS: INR 1.4 Ratio; Prothrombin Time 13.9 sec (9.8-11.6)
[2018-01-15] MEDS: Hydrocortisone Sod Succinate 100 MG Vial IV.PUSH SCH ×4 (05:54→23:50)
[2018-01-15] MEDS: Midazolam 50 MG/50 ML Inj 50 MG/50 ML BAG IV.CONT PRN (05:55)
[2018-01-15 06:01] LABS: Albumin 1.7 g/dL (3.4-5.0); Calcium 6.9 mg/dL (8.5-10.1); Carbon Dioxide 24.5 meq/L (21.0-32.0); Magnesium 2.3 mg/dL (1.5-2.5); Phosphorus 1.7 mg/dL (2.5-4.9); Potassium 3.3 meq/L (3.5-5.1); Total Protein 5.4 g/dL (6.4-8.2)
[2018-01-15 07:14] LABS: Metamyelocytes 2 % (0-1); Monocytes 6 % (0-8); Myelocytes 1 % (0-0); Promyelocyte 1 % (0-0); Tallied Nucleated RBC 2 (0-0)
[2018-01-15 07:15] LABS: Platelet Morphology Normal (Normal)
[2018-01-15 07:24] LABS: Activated Partial Thrombo Time 49.9 sec (23.4-31.7)
[2018-01-15] MEDS: Polyethylene Glycol 3350 17 GM Packet PO SCH ×2 (08:13→20:52)
[2018-01-15] MEDS: Famotidine PF Inj 20 MG/2 ML Vial IV.PUSH SCH ×2 (08:15→20:52)
[2018-01-15] MEDS: Chlorhexidine 0.12% Oral Kit 15 ML UDC OROPHARYNG SCH ×2 (08:16→20:52)
[2018-01-15] MEDS: Senna/Docusate Sodium 8.6/50 MG Tablet PO SCH ×2 (08:16→20:52)
--- NOTE | 2018-01-15 10:25 | P.PNNP ---
Subjective Interval history: remains intubated Physical Exam Vital signs: Vital Signs 01/14/18 10:16 01/14/18 10:30 01/14/18 10:45 Temperature Pulse Rate 54 L 55 L 56 L Respiratory Rate Blood Pressure 127/61 106/53 L 118/55 L Pulse Oximetry 100 98 98 01/14/18 11:00 01/14/18 11:01 01/14/18 11:16 Temperature Pulse Rate 56 L 55 L 54 L Respiratory Rate Blood Pressure 149/67 H 99/51 L Pulse Oximetry 99 98 98 01/14/18 11:29 01/14/18 11:30 01/14/18 11:45 Temperature Pulse Rate 53 L 53 L Respiratory Rate 19 Blood Pressure 130/62 126/60 Pulse Oximetry 99 99 99 01/14/18 12:00 01/14/18 12:15 01/14/18 12:30 Temperature 97.6 F Pulse Rate 53 L 52 L 52 L Respiratory Rate Blood Pressure 115/55 L 117/58 L 115/56 L Pulse Oximetry 99 99 99 01/14/18 12:45 01/14/18 13:00 01/14/18 13:15 Temperature Pulse Rate 53 L 53 L 53 L Respiratory Rate Blood Pressure 102/57 L 103/56 L 107/58 L Pulse Oximetry 96 97 98 01/14/18 13:30 01/14/18 13:45 01/14/18 14:00 Temperature Pulse Rate 54 L 54 L 54 L Respiratory Rate Blood Pressure 148/70 H 148/68 H 136/62 Pulse Oximetry 99 98 97 01/14/18 14:15 01/14/18 14:30 01/14/18 14:45 Temperature Pulse Rate 55 L 55 L 56 L Respiratory Rate Blood Pressure 125/57 L 124/60 121/58 L Pulse Oximetry 94 L 96 94 L 01/14/18 15:00 01/14/18 15:11 01/14/18 15:15 Temperature Pulse Rate 54 L 53 L Respiratory Rate 20 Blood Pressure 126/62 126/62 Pulse Oximetry 98 97 99 01/14/18 15:30 01/14/18 15:45 01/14/18 16:00 Temperature 97.6 F Pulse Rate 55 L 55 L 55 L Respiratory Rate Blood Pressure 115/56 L 122/62 122/60 Pulse Oximetry 96 97 96 01/14/18 16:15 01/14/18 16:30 01/14/18 16:45 Temperature Pulse Rate 55 L 56 L 59 L Respiratory Rate Blood Pressure 131/64 118/56 L 107/55 L Pulse Oximetry 98 95 88 L 01/14/18 17:00 01/14/18 17:15 01/14/18 17:30 Temperature Pulse Rate 58 L 58 L 58 L Respiratory Rate Blood Pressure 117/56 L 107/57 L 115/57 L Pulse Oximetry 91 L 94 L 95 01/14/18 17:45 01/14/18 18:00 01/14/18 18:15 Temperature Pulse Rate 58 L 56 L 56 L Respiratory Rate Blood Pressure 118/60 135/68 136/68 Pulse Oximetry 97 99 100 01/14/18 18:30 01/14/18 19:00 01/14/18 20:00 Temperature 98.4 F Pulse Rate 56 L 56 L 58 L Respiratory Rate 18 18 Blood Pressure 133/67 Pulse Oximetry 99 98 01/14/18 20:14 01/14/18 21:00 01/14/18 22:00 Temperature Pulse Rate 56 L 56 L 59 L Respiratory Rate 22 18 18 Blood Pressure Pulse Oximetry 99 100 100 01/14/18 23:00 01/14/18 23:34 01/15/18 00:00 Temperature 99.2 F Pulse Rate 61 58 L Respiratory Rate 18 21 18 Blood Pressure Pulse Oximetry 96 100 100 01/15/18 01:00 01/15/18 02:00 01/15/18 03:00 Temperature Pulse Rate 58 L 57 L 59 L Respiratory Rate 18 18 Blood Pressure Pulse Oximetry 99 97 01/15/18 04:00 01/15/18 04:25 01/15/18 05:00 Temperature 99.1 F Pulse Rate 57 L 59 L Respiratory Rate 18 21 18 Blood Pressure Pulse Oximetry 99 99 95 01/15/18 06:00 01/15/18 07:00 01/15/18 07:32 Temperature Pulse Rate 60 60 Respiratory Rate 18 18 19 Blood Pressure 123/58 L Pulse Oximetry 97 97 96 01/15/18 08:00 01/15/18 09:00 01/15/18 10:00 Temperature 98.5 F Pulse Rate 59 L 58 L Respiratory Rate 18 18 18 Blood Pressure 130/62 98/52 L 138/66 Pulse Oximetry 98 98 96 Intake & Output 01/14/18 01/15/18 01/15/18 18:59 06:59 18:59 Intake Total 1650 / 1650 1744 / 1744 300 / 300 Output Total 1750 / 1750 1700 / 1700 Balance -100 / -100 44 / 44 300 / 300 Weight 102.7 kg Intake: IV 1650 / 1650 1250 / 1250 300 / 300 Heparin/D5W 25,000 U/250 mL 25, 50 / 50 000 unit In 250 ml @ Per Protocol IV.CONT TITRATE PRN Rx #:[id number] Versed Inj 50 mg In 50 ml @ 2 50 / 50 50 / 50 MG/HR 2 mls/hr IV.CONT TITRATE PRN Rx#:[id number] Neosynephrine Inj 160 MG In D5W 200 / 200 Inj 484 ML @ 40 MCG/MIN 7.5 mls/hr IV.CONT TITRATE PRN Rx#: [id number] Sodium Bicarbonate 8.4% Inj 150 100 / 100 500 / 500 MEQ In Sterile Water for Inj 850 ML @ 75 mls/hr IV.CONT . [id number] [facility]AN[facility] Rx#:[id number] Azactam Inj 1,000 MG In NS Inj 200 / 200 200 / 200 100 ML @ 200 mls/hr IV.SIG Q8H [facility] Rx#:[id number] Zyvox 600 mg Premix 300 ML @ 300 / 300 300 / 300 300 / 300 300 mls/hr IV.SIG Q12H [facility] Rx#: [id number] KCl 40 mEq Premix Inj 40 meq In 100 / 100 100 ml @ 25 mls/hr IV.SIG Q2H PRN Rx#:[id number] fentaNYL 10 mcg/mL Premix Drip 250 / 250 2,500 mcg In 250 ml @ 50 MCG/HR 5 mls/hr IV.SIG TITRATE PRN Rx #:[id number] Flagyl 500 MG Inj 100 ML @ 100 300 / 300 200 / 200 mls/hr IV.SIG Q6H [facility] Rx#: [id number] Tube Feeding 444 / 444 Tube Irrigant 50 / 50 Output: Urine Amount (Catheter) 1750 / 1750 1700 / 1700 Indwelling Urethral Catheter 1750 / 1750 1700 / 1700 Other: Date of Last Bowel Movement 01/12/18 01/15/18 01/15/18 # Incontinent Bowel Movements 1 - Constitutional no acute distress - Routine HEENT Exam Head: Present: normocephalic Eye: Present: EOMI ENT: Present: mucous membranes moist - Routine Neck Exam Present: supple - Routine Respiratory Exam Present: decreased breath sounds - Routine Cardiovascular Exam Present: RRR - Routine Abdominal Exam Present: soft - Routine Exam Perineum Description: Intact - Routine Skin Exam Present: intact - Urinary Catheter Management Indwelling Urethral Catheter Cath placed during this visit: yes Reason for continuing: Acute urinary retention Insertion date: 01/09/18 Insertion time: 21:45 Assessment and Plan - Assessment (1) Acute renal failure Code(s): N17.9 - Acute kidney failure, unspecified Status: Acute (2) Shock Code(s): R57.9 - Shock, unspecified Status: Acute (3) Sudden cardiac arrest Code(s): I46.9 - Cardiac arrest, cause unspecified Status: Acute (4) Paroxysmal atrial fibrillation with rapid ventricular response Code(s): I48.0 - Paroxysmal atrial fibrillation Status: Acute (5) Coronary artery disease Code(s): I25.10 - Atherosclerotic heart disease of [place] coronary artery without angina pectoris Status: Acute - Plan Patient with underlying ATN due to cardiogenic shock status post CPR the patient is in acute renal failure Creatinine improvin.6 -> 1.6 today UOP improvin.4 L UOP/24 hours Continue supportive care. Monitor intake and output Avoid nephrotoxic agents Follow BMP Will replace potassium today Possible cardiac cath if stable tomorrow Wean pressors if possible Discussed contrast risks with critical care - concern for further CHF with IVFs. Will hold IVF administration in preparation of contrast given heart failure. Patient otherwise with relative volume overload. Ideally minimize contrast exposure for cardiac cath.
[2018-01-15] MEDS: Potassium Phosphate 500 MG Soluble Tablet PO PRN ×2 (10:27→14:26)
[2018-01-15] MEDS ORDERED: Dexmedetomidine Inj 200 MCG in Sodium Chlor 0.9% Inj 48 ML IV.CONT PRN (10:29)
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
[2018-01-15] MEDS: fentaNYL 10 mcg/mL Premix Drip 2,500 MCG/250 ML BAG IV.SIG PRN ×2 (10:52→18:39)
--- NOTE | 2018-01-15 10:56 | P.PNCA ---
Subjective Interval history: Intubated. Sedated. Medications and Allergies Active Medications: Active Medications Acetaminophen (Tylenol) 650 mg PO Q6H PRN PRN Reason: TEMPERATURE > 101 F Last Admin: 01/11/18 15:50 Dose: 650 mg Albuterol (Duoneb Neb (Prn)) 1 ampul NEB Q2HR NEB PRN PRN Reason: WHEEZING Last Admin: 01/14/18 20:16 Dose: 1 ampul Aspirin (Aspirin Chew) 81 mg PO DAILY [facility] Last Admin: 01/15/18 08:13 Dose: 81 mg Bisacodyl (Dulcolax Supp) 10 mg RECTAL DAILY PRN PRN Reason: if no BM in last 24h Chlorhexidine Gluconate (Peridex 0.12% Oral Kit) 15 ml OROPHARYNG BID@0800, 1999 [facility] Last Admin: 01/15/18 08:16 Dose: 15 ml Dextrose (D50w Vial) 50 ml IV.PUSH UNSCH PRN PRN Reason: PER HYPOGLYCEMIA PROTOCOL Famotidine (Pepcid Pf Inj) 10 mg IV.PUSH Q12HR [facility] Last Admin: 01/15/18 08:15 Dose: 10 mg Glucagon (Glucagon Inj) 1 mg OTHER PRN PRN PRN Reason: for Hypoglycemia Protocol Hydrocortisone Sodium Succinate (Solucortef Inj) 0 mg IV.PUSH Q8HR [facility]; Taper Stop: 01/20/18 10:24 Fentanyl (Fentanyl 10 Mcg/Ml Premix Drip) 2,500 mcg in 250 mls @ 5 mls/hr IV.SIG TITRATE PRN; Protocol PRN Reason: Per Protocol Last Admin: 01/15/18 10:52 Dose: 150 mcg/hr, 15 mls/hr Aztreonam 1,000 mg/ Sodium (Chloride) 100 mls @ 200 mls/hr IV.SIG Q8H [facility] Last Infusion: 01/15/18 06:49 Dose: Infused Heparin Sodium/Dextrose (Heparin/D5w 25,000 U/250 Ml) 25,000 unit in 250 mls @ 0 mls/hr IV.CONT TITRATE PRN; Protocol PRN Reason: Per Protocol Last Admin: 01/14/18 07:15 Dose: 800 units/hr, 8 mls/hr Magnesium Sulfate 2 gm/ Sodium (Chloride) 100 mls @ 50 mls/hr IV.SIG UNSCH PRN PRN Reason: For Magnesium 1.2 - 1.6 mg/dL Metronidazole/Sodium Chloride (Flagyl 500 Mg Inj) 100 mls @ 100 mls/hr IV.SIG Q6H [facility] Last Infusion: 01/15/18 06:54 Dose: Infused Potassium Chloride (Kcl 40 Meq Premix Inj) 40 meq in 100 mls @ 25 mls/hr IV.SIG Q2H PRN PRN Reason: For Potassium 2.8 - 3.2 mEq/L Last Infusion: 01/14/18 07:14 Dose: Infused Potassium Chloride (Kcl 20 Meq Premix Inj) 20 meq in 100 mls @ 50 mls/hr IV.SIG Q2H PRN PRN Reason: For Potassium 3.3 - 3.5 mEq/L Last Infusion: 01/14/18 06:24 Dose: Infused Potassium Chloride (Kcl 40 Meq Premix Inj) 40 meq in 100 mls @ 25 mls/hr IV.SIG UNSCH PRN PRN Reason: For Potassium 3.3 - 3.5 mEq/L Last Admin: 01/15/18 10:28 Dose: 25 mls/hr Potassium Phosphate 30 mmol/ (Sodium Chloride) 260 mls @ 42 mls/hr IV.SIG UNSCH PRN PRN Reason: SEE LABEL COMMENTS Sodium Phosphate 30 mmol/ (Sodium Chloride) 260 mls @ 42 mls/hr IV.SIG UNSCH PRN PRN Reason: For Phosphorus < 2.5 mg/dL Magnesium Sulfate 4 gm/ Sodium (Chloride) 100 mls @ 50 mls/hr IV.SIG UNSCH PRN PRN Reason: For Magnesium 0.9 - 1.1 mg/dL Potassium Chloride (Kcl 20 Meq Premix Inj) 20 meq in 100 mls @ 50 mls/hr IV.SIG Q2H PRN PRN Reason: For Potassium 2.8 - 3.2 mEq/L Norepinephrine Bitartrate 16 (mg/ Sodium Chloride) 250 mls @ 1.87 mls/hr IV.SIG TITRATE PRN; Protocol PRN Reason: Per Protocol Last Titration: 01/14/18 04:00 Dose: 2 mcg/min, 1.87 mls/hr Linezolid (Zyvox 600 Mg Premix) 300 mls @ 300 mls/hr IV.SIG Q12H [facility] Last Infusion: 01/15/18 09:14 Dose: Infused Epoprostenol Sodium 20 ml/ (Sodium Chloride) 100 mls @ 5 mls/hr NEB Q8H [facility] Stop: 01/15/18 12:29 Last Admin: 01/15/18 04:43 Dose: 5 mls/hr Dexmedetomidine HCl 200 mcg/ (Sodium Chloride) 50 mls @ 12.83 mls/hr IV.CONT TITRATE PRN; Protocol PRN Reason: Per Protocol Insulin Human Regular (Novolin R Correctional Sugar Inj) 0 units SQ Q6HR [facility]; Protocol Last Admin: 01/15/18 05:55 Dose: 2 units Lactulose (Lactulose Liq) 30 ml PO BID [facility] Last Admin: 01/15/18 08:14 Dose: 30 ml Magnesium Oxide (Mag-Ox) 800 mg PO UNSCH PRN PRN Reason: For Magnesium 1.2 - 1.6 mg/dL Miscellaneous Medication () 1 each OROPHARYNG 0000,0400,1200,1600 [facility] Last Admin: 01/15/18 04:35 Dose: 1 each Ondansetron HCl (Zofran Inj) 4 mg IV.PUSH Q6H PRN PRN Reason: NAUSEA OR VOMITING Polyethylene Glycol (Miralax) 17 gm PO BID [facility] Last Admin: 01/15/18 08:13 Dose: 17 gm Potassium Bicarb/Potassium Chloride (K-Lyte Cl Eff) 50 meq PO UNSCH PRN PRN Reason: For Potassium 3.3 - 3.5 mEq/L Potassium Phosphate (K-Phos Original) 2,000 mg PO Q4H PRN PRN Reason: Phosphorus Less Than 2.5 mg/dL Last Admin: 01/15/18 10:27 Dose: 2,000 mg Potassium Phosphate (K-Phos Original) 2,000 mg PO UNSCH PRN PRN Reason: SEE LABEL COMMENTS Senna/Docusate Sodium (Merari-Colace) 1 tab PO BID [facility] Last Admin: 01/15/18 08:16 Dose: 1 tab Sodium Chloride (Ns Flush) 2 ml IV.FLUSH UNSCH PRN PRN Reason: FLUSH AFTER USING IV ACCESS Last Admin: 01/15/18 08:14 Dose: 2 ml Sodium Chloride (Ns Flush) 2 ml IV.FLUSH UNSCH PRN PRN Reason: FLUSH AFTER USING IV ACCESS Allergies Allergy/AdvReac Type Severity Reaction Status Date / Time lorazepam Allergy Severe Confusion Verified 01/09/18 11:21 morphine Allergy Severe Confusion Verified 01/09/18 11:21 penicillin G Allergy Mild UNKNOWN Verified 01/09/18 11:21 clonazepam Allergy Unknown confusion Verified 01/09/18 11:21 Home Medications Medication Instructions Recorded Confirmed Type Gustavo 01/09/18 History Physical Exam Vital signs: Vital Signs 01/14/18 11:00 01/14/18 11:01 01/14/18 11:16 Temperature Pulse Rate 56 L 55 L 54 L Respiratory Rate Blood Pressure 149/67 H 99/51 L Pulse Oximetry 99 98 98 01/14/18 11:29 01/14/18 11:30 01/14/18 11:45 Temperature Pulse Rate 53 L 53 L Respiratory Rate 19 Blood Pressure 130/62 126/60 Pulse Oximetry 99 99 99 01/14/18 12:00 01/14/18 12:15 01/14/18 12:30 Temperature 97.6 F Pulse Rate 53 L 52 L 52 L Respiratory Rate Blood Pressure 115/55 L 117/58 L 115/56 L Pulse Oximetry 99 99 99 01/14/18 12:45 01/14/18 13:00 01/14/18 13:15 Temperature Pulse Rate 53 L 53 L 53 L Respiratory Rate Blood Pressure 102/57 L 103/56 L 107/58 L Pulse Oximetry 96 97 98 01/14/18 13:30 01/14/18 13:45 01/14/18 14:00 Temperature Pulse Rate 54 L 54 L 54 L Respiratory Rate Blood Pressure 148/70 H 148/68 H 136/62 Pulse Oximetry 99 98 97 01/14/18 14:15 01/14/18 14:30 01/14/18 14:45 Temperature Pulse Rate 55 L 55 L 56 L Respiratory Rate Blood Pressure 125/57 L 124/60 121/58 L Pulse Oximetry 94 L 96 94 L 01/14/18 15:00 01/14/18 15:11 01/14/18 15:15 Temperature Pulse Rate 54 L 53 L Respiratory Rate 20 Blood Pressure 126/62 126/62 Pulse Oximetry 98 97 99 01/14/18 15:30 01/14/18 15:45 01/14/18 16:00 Temperature 97.6 F Pulse Rate 55 L 55 L 55 L Respiratory Rate Blood Pressure 115/56 L 122/62 122/60 Pulse Oximetry 96 97 96 01/14/18 16:15 01/14/18 16:30 01/14/18 16:45 Temperature Pulse Rate 55 L 56 L 59 L Respiratory Rate Blood Pressure 131/64 118/56 L 107/55 L Pulse Oximetry 98 95 88 L 01/14/18 17:00 01/14/18 17:15 01/14/18 17:30 Temperature Pulse Rate 58 L 58 L 58 L Respiratory Rate Blood Pressure 117/56 L 107/57 L 115/57 L Pulse Oximetry 91 L 94 L 95 01/14/18 17:45 01/14/18 18:00 01/14/18 18:15 Temperature Pulse Rate 58 L 56 L 56 L Respiratory Rate Blood Pressure 118/60 135/68 136/68 Pulse Oximetry 97 99 100 01/14/18 18:30 01/14/18 19:00 01/14/18 20:00 Temperature 98.4 F Pulse Rate 56 L 56 L 58 L Respiratory Rate 18 18 Blood Pressure 133/67 Pulse Oximetry 99 98 01/14/18 20:14 01/14/18 21:00 01/14/18 22:00 Temperature Pulse Rate 56 L 56 L 59 L Respiratory Rate 22 18 18 Blood Pressure Pulse Oximetry 99 100 100 01/14/18 23:00 01/14/18 23:34 01/15/18 00:00 Temperature 99.2 F Pulse Rate 61 58 L Respiratory Rate 18 21 18 Blood Pressure Pulse Oximetry 96 100 100 01/15/18 01:00 01/15/18 02:00 01/15/18 03:00 Temperature Pulse Rate 58 L 57 L 59 L Respiratory Rate 18 18 Blood Pressure Pulse Oximetry 99 97 01/15/18 04:00 01/15/18 04:25 01/15/18 05:00 Temperature 99.1 F Pulse Rate 57 L 59 L Respiratory Rate 18 21 18 Blood Pressure Pulse Oximetry 99 99 95 01/15/18 06:00 01/15/18 07:00 01/15/18 07:32 Temperature Pulse Rate 60 60 Respiratory Rate 18 18 19 Blood Pressure 123/58 L Pulse Oximetry 97 97 96 01/15/18 08:00 01/15/18 09:00 01/15/18 10:00 Temperature 98.5 F Pulse Rate 59 L 58 L Respiratory Rate 18 18 18 Blood Pressure 130/62 98/52 L 138/66 Pulse Oximetry 98 98 96 Intake & Output 01/14/18 01/15/18 01/15/18 18:59 06:59 18:59 Intake Total 1650 / 1650 1744 / 1744 570 / 570 Output Total 1750 / 1750 1700 / 1700 Balance -100 / -100 44 / 44 570 / 570 Weight 102.7 kg Intake: IV 1650 / 1650 1250 / 1250 570 / 570 Heparin/D5W 25,000 U/250 mL 25, 50 / 50 000 unit In 250 ml @ Per Protocol IV.CONT TITRATE PRN Rx #:[id number] Versed Inj 50 mg In 50 ml @ 2 50 / 50 50 / 50 20 / 20 MG/HR 2 mls/hr IV.CONT TITRATE PRN Rx#:[id number] Neosynephrine Inj 160 MG In D5W 200 / 200 Inj 484 ML @ 40 MCG/MIN 7.5 mls/hr IV.CONT TITRATE PRN Rx#: [id number] Sodium Bicarbonate 8.4% Inj 150 100 / 100 500 / 500 MEQ In Sterile Water for Inj 850 ML @ 75 mls/hr IV.CONT . [id number] [facility] Rx#:[id number] Azactam Inj 1,000 MG In NS Inj 200 / 200 200 / 200 100 ML @ 200 mls/hr IV.SIG Q8H [facility] Rx#:[id number] Zyvox 600 mg Premix 300 ML @ 300 / 300 300 / 300 300 / 300 300 mls/hr IV.SIG Q12H [facility] Rx#: [id number] KCl 40 mEq Premix Inj 40 meq In 100 / 100 100 ml @ 25 mls/hr IV.SIG Q2H PRN Rx#:[id number] fentaNYL 10 mcg/mL Premix Drip 250 / 250 250 / 250 2,500 mcg In 250 ml @ 50 MCG/HR 5 mls/hr IV.SIG TITRATE PRN Rx #:[id number] Flagyl 500 MG Inj 100 ML @ 100 300 / 300 200 / 200 mls/hr IV.SIG Q6H [facility] Rx#: [id number] Tube Feeding 444 / 444 Tube Irrigant 50 / 50 Output: Urine Amount (Catheter) 1750 / 1750 1700 / 1700 Indwelling Urethral Catheter 1750 / 1750 1700 / 1700 Other: Date of Last Bowel Movement 01/12/18 01/15/1801/15/18 # Incontinent Bowel Movements 1 - Constitutional Comments: Intubated. Sedated. - Routine Neck Exam Absent: JVD - Routine Respiratory Exam Comments: Lungs clear anteriorly. - Routine Cardiovascular Exam Present: RRR, S1, S2. Absent: murmur, gallop - Routine Abdominal Exam Present: soft, normoactive bowel sounds. Absent: organomegaly - Routine Extremities Exam Absent: cyanosis, clubbing, edema - Urinary Catheter Management Indwelling Urethral Catheter Cath placed during this visit: yes Reason for continuing: Acute urinary retention Insertion date: 01/09/18 Insertion time: 21:45 Results 01/15/18 04:30 01/15/18 04:30 Cardiac Enzymes 01/14/18 01/15/18 Range/Units 05:00 04:30 AST 96 H 67 H (15-37) U/L Coagulation 01/14/18 01/15/18 Range/Units 05:00 04:30 PT 15.4 H 13.9 H (9.8-11.6) sec APTT 68.5 H 49.9 H D (23.4-31.7) sec CBC 01/14/18 01/15/18 Range/Units 05:00 04:30 WBC 14.6 H D 10.6 (4.0-11.0) th/mm3 RBC 3.26 L 3.15 L (4.50-5.90) mil/mm3 Hgb 10.3 L 10.1 L (13.0-17.0) gm/dL Hct 30.1 L 29.7 L (39.0-51.0) % Plt Count 128 L 106 L (150-450) th/mm3 Neut # (Auto) 13.2 H 9.5 H (1.8-7.7) th/mm3 Lymph # (Auto) 0.5 L 0.4 L (1.0-4.8) th/mm3 [place] # (Auto) 0.9 0.8 (0.0-0.9) th/mm3 Eos # (Auto) 0.0 0.0 (0.0-0.4) th/mm3 Baso # (Auto) 0.0 0.0 (0.0-0.2) th/mm3 Comprehensive Metabolic Panel 01/13/18 01/14/18 01/15/18 Range/Units 14:50 05:00 04:30 Sodium 136 143 (136-145) meq/L Potassium 2.9 L* 3.5 3.3 L (3.5-5.1) meq/L Chloride 100 107 (98-107) meq/L Carbon Dioxide 25.0 24.5 (21.0-32.0) meq/L BUN 52 H 49 H (7-18) mg/dL Creatinine 1.68 H 1.66 H (0.60-1.30) mg/dL Calcium 6.6 L* 6.9 L* (8.5-10.1) mg/dL AST 96 H 67 H (15-37) U/L ALT 228 H 189 H (12-78) U/L Alkaline Phosphatase 66 74 (45-117) U/L Total Protein 5.5 L 5.4 L (6.4-8.2) g/dL Albumin 1.8 L 1.7 L (3.4-5.0) g/dL Intake and Output 01/14/18 01/15/18 01/15/18 22:59 06:59 14:59 Intake Total 1250 / 1250 1244 / 1244 570 / 570 Output Total 1750 / 1750 1700 / 1700 Balance -500 / -500 -456 / -456 570 / 570 Intake: IV 1250 / 1250 750 / 750 570 / 570 Versed Inj 50 mg In 50 ml @ 2 50 / 50 20 / 20 MG/HR 2 mls/hr IV.CONT TITRATE PRN Rx#:[id number] Sodium Bicarbonate 8.4% Inj 150 500 / 500 MEQ In Sterile Water for Inj 850 ML @ 75 mls/hr IV.CONT . [id number] [facility] Rx#:[id number] Azactam Inj 1,000 MG In NS Inj 100 / 100 200 / 200 100 ML @ 200 mls/hr IV.SIG Q8H [facility] Rx#:[id number] Zyvox 600 mg Premix 300 ML @ 300 / 300 300 / 300 300 / 300 300 mls/hr IV.SIG Q12H [facility] Rx#: [id number] fentaNYL 10 mcg/mL Premix Drip 250 / 250 250 / 250 2,500 mcg In 250 ml @ 50 MCG/HR 5 mls/hr IV.SIG TITRATE PRN Rx #:[id number] Flagyl 500 MG Inj 100 ML @ 100 100 / 100 200 / 200 mls/hr IV.SIG Q6H [facility] Rx#: [id number] Tube Feeding 444 / 444 Tube Irrigant 50 / 50 Output: Urine Amount (Catheter) 1750 / 1750 1700 / 1700 Indwelling Urethral Catheter 1750 / 1750 1700 / 1700 Other: Date of Last Bowel Movement 01/12/18 01/15/18 01/15/18 # Incontinent Bowel Movements 1 Weight 102.7 kg - Imaging and Cardiology Imaging: Impressions Chest X-Ray 01/14/18 05:00 CONCLUSION: Unchanged bibasilar consolidations. Assessment and Plan - Assessment (1) Pulmonary hypertension Code(s): I27.20 - Pulmonary hypertension, unspecified Status: Acute (2) Elevated troponin Code(s): R74.8 - Abnormal levels of other serum enzymes Status: Acute (3) Acute kidney injury Code(s): N17.9 - Acute kidney failure, unspecified Status: Acute (4) Sudden cardiac arrest Code(s): I46.9 - Cardiac arrest, cause unspecified Status: Acute (5) Paroxysmal atrial fibrillation with rapid ventricular response Code(s): I48.0 - Paroxysmal atrial fibrillation Status: Acute (6) Left bundle branch block Code(s): I44.7 - Left bundle-branch block, unspecified Status: Acute (7) Coronary artery disease Code(s): I25.10 - Atherosclerotic heart disease of [place] coronary artery without angina pectoris Status: Acute (8) Junctional rhythm Code(s): I49.8 - Other specified cardiac arrhythmias Status: Acute - Plan 01/11/2018 Shock has worsened despite LVEF only mildly impaired. Required cardioversion for AF RVR. I would like to do a cardiac cath but rising creatinin /risk of renal failure. Lungs sound much worse ? CHF CXR pending. Labs and CXR pending. 01/12/2018 Shock improved. Creatinine improving, Possible cath Tuesday. Stop amiodarone due to intermittent junctional rhythm. KCL 20meq IVPB. Magnesium is OK now. 01/14/18 Hemodynamically continues to improve. Cardiac status overall stable. Renal indices also improving. Currently in NSR. Recommend no changes. Possibly cardiac cath Tuesday. 01/15/18 Cardiac status remains stable. Hemodynamically stable. Renal indices stable, and overall improved. No new recommendations. Dr. Trivedi to decide on timing of cardiac catheterization.
--- NOTE | 2018-01-15 12:33 | P.DIET ---
Nutritional Evaluation Type of nutrition evaluation: follow-up Nutrition consult regarding: Tube Feeding Screening comments: 01/13 NPO x3 Objective - Diagnosis shock - Objective % IBW: 126 (IBW = 178) Body Weight Used for Calculations: IBW Energy Needs - Lower Range (kCal/kg): 22 Energy Needs - Upper Range (kCal/kg): 28 Lower Limit kCal/kg (kCals): 1,780 Upper Limit kCal/kg (kCals): 2,184 Lower Limit Protein Factor (Grams per Kg): 1.2 Upper Limit Protein Factor (Grams per Kg): 1.5 Lower Protein Needs (Protein): 97 Upper Protein Needs (Protein): 121 Dietitian Reviewed in Medical Record: Curent medications, Intake & Output, Labs , Medical history, Tube feeding Diet Order: NPO Objective Comments: PMH: GERD, AFIB, CHF, COPD, testicular cancer, hyperlipidemia, neurofibrosis, osteoarthritis, s/p knee arthroscopy, CABG x3 Meds include: flagyl, zofran, pepcid, lactulose, novolin R Labs include: BUN 49, Creatinine 1.66, estGFR 42, Glucose 170 LBM 01/15, +UOP 3450ml Feeding - Current Tube Feeding Tube Feeding Product: Glucerna 1.5 Tube Feeding Rate: 50 Current kCals Provided by Tube Feedin,800 Current Protein Provided by Tube Feeding (gPRO): 99 Current Free H2O Provided (m/l): 911 Assessment Assessment: Pt continues at nutritional risk r/t need for TF'ing. Rec current TF'ing w/ Glucerna 1.5 @ goal rate 55ml/hr to offer 1980 kcal, 109g protein and 1002ml free water. Labs reviewed. Wt changes noted. Additional recs to follow r/t clinical course Recommendations: 1. Rec current TF'ing w/Glucerna 1.5 @ goal rate 55ml/hr 2. Additional recs to follow r/t clinical course Dietitian to Monitor: Lab values, Renal labs, Glucose level, Intake & Output, Tube feeding tolerance, Weight change, Medical course
[2018-01-15] MEDS: Heparin Drip 25,000 UNIT/250 ML BAG IV.CONT PRN ×2 (16:07→18:35)
--- NOTE | 2018-01-15 17:56 | P.PCN ---
Date of procedure: 01/15/18 Procedure: Central Line Procedure Note Right subclavian 7 [place] 20 cm triple-lumen catheter Diagnosis: Cardiogenic shock Indications: Need for highly potent vasoactive substances Consent: Obtained Anesthesia: Fentanyl IV, 1% lidocaine locally Description of the Procedure: The patient was placed in the supine, mild- Trendelenburg position. The area was prepped and draped sterilely. A 19g needle was inserted under negative pressure aspiration and dark venous blood was obtained. A guidewire was inserted easily without resistance. A small incision was made using a #11 blade. Using a modified Seldinger technique, the dilator and 7 [place], 20 cm catheter were advanced over the guidewire without resistance. All ports were aspirated and flushed, and had brisk blood return. The line was secured at the skin using a non-suture StatLock device. A Biopatch and Transparent sterile dressing were applied. There were no immediate complications noted. There was minimal EBL. The patient tolerated the procedure well. Ultrasound guidance was not used for this procedure. Subclavian site was chosen due to a lower risk of infection as well as the fact that the patient is in a c-collar and the IJ site is inaccessible. A Chest x-ray has been ordered. I personally performed the procedure.
--- NOTE | 2018-01-15 18:38 | XR ---
EXAM DATE: 01/15/2018 6:18 PM EST AGE/SEX: 67 years / Male INDICATIONS: Right sided central line placement. CLINICAL DATA: This is the patient's initial encounter. Patient reports that signs and symptoms have been present for 1 day and indicates a pain score of Nonresponsive. MEDICAL/SURGICAL HISTORY: . Cardiovascular disease. . CABG. Mitral valve replaced. . COMPARISON: C, CHEST 1V SINGLE AP, 01/14/2018. . FINDINGS: Endotracheal tube in good position. NG coiled in stomach. Right central line in superior vena cava. P revious CABG. Left-sided atrial clip present. Previous mitral valve surgery. Mild edema pattern sligh tly improved from January 14. CONCLUSION: Right central line in superior vena cava. No pneumothorax. Electronically signed by: Hossein Flores MD 01/15/2018 6:37 PM EST
[2018-01-15] MEDS: Norepinephrine Inj 16 MG in Sodium Chlor 0.9% Inj 234 ML IV.SIG PRN (19:28)
[2018-01-16] MEDS ORDERED: Amiodarone Inj 150 MG in Dextrose 5% in Water Inj 97 ML IV.SIG ONE ×2 (00:35)
[2018-01-16] MEDS ORDERED: Albumin Human 5% Inj 500 ML IV.SIG ONE (00:35)
[2018-01-16] MEDS: Hydrocortisone Sod Succinate 100 MG Vial IV.PUSH SCH ×2 (04:05→11:32)
[2018-01-16] MEDS: Oral Hygiene Kit OROPHARYNG SCH (04:05)
[2018-01-16] MEDS: fentaNYL 10 mcg/mL Premix Drip 2,500 MCG/250 ML BAG IV.SIG PRN (04:05)
[2018-01-16 05:00] LABS: Baso % (Auto) 0.1 % (0.0-2.0); Eos % (Auto) 0.1 % (0.0-4.0); Hematocrit 32.8 % (39.0-51.0); Hemoglobin 10.5 gm/dL (13.0-17.0); Lymph # (Auto) 0.5 th/mm3 (1.0-4.8); Lymph % (Auto) 3.3 % (9.0-44.0); Mean Corpuscular HGB Conc 32.2 % (32.0-36.0); Mean Corpuscular Hemoglobin 30.8 pg (27.0-34.0); Mean Corpuscular Volume 95.7 fL (80.0-100.0); Mean Platelet Volume 9.5 fL (7.0-11.0); Mono # (Auto) 1.7 th/mm3 (0.0-0.9); Mono % (Auto) 10.9 % (0.0-8.0); Neut # (Auto) 13.1 th/mm3 (1.8-7.7); Neut % (Auto) 85.6 % (16.0-70.0); Platelet Count 131 th/mm3 (150-450); Red Blood Count 3.43 mil/mm3 (4.50-5.90); Red Cell Distribution Width 17.3 % (11.6-17.2); White Blood Count 15.3 th/mm3 (4.0-11.0)
[2018-01-16 05:07] LABS: INR 1.3 Ratio; Prothrombin Time 13.2 sec (9.8-11.6)
[2018-01-16 05:40] LABS: Albumin 2.5 g/dL (3.4-5.0); Carbon Dioxide 24.9 meq/L (21.0-32.0); Magnesium 2.4 mg/dL (1.5-2.5); Phosphorus 2.7 mg/dL (2.5-4.9); Potassium 3.8 meq/L (3.5-5.1); Total Protein 6.1 g/dL (6.4-8.2)
[2018-01-16] MEDS: Insulin NovoLIN Regular Correctional Sugar Inj SQ SCH ×2 (06:01→12:52)
[2018-01-16] MEDS: Norepinephrine Inj 16 MG in Sodium Chlor 0.9% Inj 234 ML IV.SIG PRN (07:11)
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
[2018-01-16 07:28] VITALS: RESP 18
[2018-01-16 08:06] LABS: Metamyelocytes 2 % (0-1); Monocytes 4 % (0-8); Myelocytes 2 % (0-0); Tallied Nucleated RBC 1 (0-0)
[2018-01-16 08:07] LABS: Platelet Morphology Normal (Normal)
[2018-01-16] MEDS: Senna/Docusate Sodium 8.6/50 MG Tablet PO SCH (08:13)
[2018-01-16] MEDS: Famotidine PF Inj 20 MG/2 ML Vial IV.PUSH SCH (08:13)
[2018-01-16] MEDS: Chlorhexidine 0.12% Oral Kit 15 ML UDC OROPHARYNG SCH (08:14)
[2018-01-16 08:33] LABS: ABG Base Excess -1.7 mmol/L (-2-2); ABG PCO2 41 mmHg (38-42); ABG PO2 62 mmHG (61-120)
--- NOTE | 2018-01-16 09:14 | P.PNCA ---
Subjective Interval history: Intubated Medications and Allergies Active Medications: Active Medications Acetaminophen (Tylenol) 650 mg PO Q6H PRN PRN Reason: TEMPERATURE > 101 F Last Admin: 01/11/18 15:50 Dose: 650 mg Albuterol (Duoneb Neb (Prn)) 1 ampul NEB Q2HR NEB PRN PRN Reason: WHEEZING Last Admin: 01/15/18 23:35 Dose: 1 ampul Aspirin (Aspirin Chew) 81 mg PO DAILY [facility] Last Admin: 01/16/18 08:12 Dose: 81 mg Bisacodyl (Dulcolax Supp) 10 mg RECTAL DAILY PRN PRN Reason: if no BM in last 24h Chlorhexidine Gluconate (Peridex 0.12% Oral Kit) 15 ml OROPHARYNG BID@0800, 2000 [facility] Last Admin: 01/16/18 08:14 Dose: 15 ml Dextrose (D50w Vial) 50 ml IV.PUSH UNSCH PRN PRN Reason: PER HYPOGLYCEMIA PROTOCOL Famotidine (Pepcid Pf Inj) 10 mg IV.PUSH Q12HR [facility] Last Admin: 01/16/18 08:13 Dose: 10 mg Glucagon (Glucagon Inj) 1 mg OTHER PRN PRN PRN Reason: for Hypoglycemia Protocol Hydrocortisone Sodium Succinate (Solucortef Inj) 50 mg IV.PUSH Q6H [facility]; Taper Stop: 01/20/18 10:59 Last Admin: 01/16/18 04:05 Dose: 50 mg Fentanyl (Fentanyl 10 Mcg/Ml Premix Drip) 2,500 mcg in 250 mls @ 5 mls/hr IV.SIG TITRATE PRN; Protocol PRN Reason: Per Protocol Last Titration: 01/16/18 06:01 Dose: 250 mcg/hr, 25 mls/hr Aztreonam 1,000 mg/ Sodium (Chloride) 100 mls @ 200 mls/hr IV.SIG Q8H [facility] Last Infusion: 01/16/18 07:11 Dose: Infused Heparin Sodium/Dextrose (Heparin/D5w 25,000 U/250 Ml) 25,000 unit in 250 mls @ 0 mls/hr IV.CONT TITRATE PRN; Protocol PRN Reason: Per Protocol Last Titration: 01/15/18 19:00 Dose: 800 units/hr, 8 mls/hr Magnesium Sulfate 2 gm/ Sodium (Chloride) 100 mls @ 50 mls/hr IV.SIG UNSCH PRN PRN Reason: For Magnesium 1.2 - 1.6 mg/dL Metronidazole/Sodium Chloride (Flagyl 500 Mg Inj) 100 mls @ 100 mls/hr IV.SIG Q6H [facility] Last Infusion: 01/16/18 07:11 Dose: Infused Potassium Chloride (Kcl 40 Meq Premix Inj) 40 meq in 100 mls @ 25 mls/hr IV.SIG Q2H PRN PRN Reason: For Potassium 2.8 - 3.2 mEq/L Last Infusion: 01/14/18 07:14 Dose: Infused Potassium Chloride (Kcl 20 Meq Premix Inj) 20 meq in 100 mls @ 50 mls/hr IV.SIG Q2H PRN PRN Reason: For Potassium 3.3 - 3.5 mEq/L Last Infusion: 01/14/18 06:24 Dose: Infused Potassium Chloride (Kcl 40 Meq Premix Inj) 40 meq in 100 mls @ 25 mls/hr IV.SIG UNSCH PRN PRN Reason: For Potassium 3.3 - 3.5 mEq/L Last Infusion: 01/15/18 14:28 Dose: Infused Potassium Phosphate 30 mmol/ (Sodium Chloride) 260 mls @ 42 mls/hr IV.SIG UNSCH PRN PRN Reason: SEE LABEL COMMENTS Sodium Phosphate 30 mmol/ (Sodium Chloride) 260 mls @ 42 mls/hr IV.SIG UNSCH PRN PRN Reason: For Phosphorus < 2.5 mg/dL Magnesium Sulfate 4 gm/ Sodium (Chloride) 100 mls @ 50 mls/hr IV.SIG UNSCH PRN PRN Reason: For Magnesium 0.9 - 1.1 mg/dL Potassium Chloride (Kcl 20 Meq Premix Inj) 20 meq in 100 mls @ 50 mls/hr IV.SIG Q2H PRN PRN Reason: For Potassium 2.8 - 3.2 mEq/L Norepinephrine Bitartrate 16 (mg/ Sodium Chloride) 250 mls @ 1.87 mls/hr IV.SIG TITRATE PRN; Protocol PRN Reason: Per Protocol Last Admin: 01/16/18 07:11 Dose: 7 mcg/min, 6.56 mls/hr Linezolid (Zyvox 600 Mg Premix) 300 mls @ 300 mls/hr IV.SIG Q12H [facility] Last Admin: 01/16/18 08:13 Dose: 300 mls/hr Dexmedetomidine HCl 200 mcg/ (Sodium Chloride) 50 mls @ 12.83 mls/hr IV.CONT TITRATE PRN; Protocol PRN Reason: Per Protocol Amiodarone HCl 450 mg/ (Dextrose) 250 mls @ 33.33 mls/hr IV.CONT TITRATE PRN; Protocol PRN Reason: Per Protocol Last Titration: 01/16/18 07:07 Dose: 0.5 mg/min, 16.66 mls/hr Insulin Human Regular (Novolin R Correctional Sugar Inj) 0 units SQ Q6HR [facility]; Protocol Last Admin: 01/16/18 06:01 Dose: Not Given Lactulose (Lactulose Liq) 30 ml PO BID [facility] Last Admin: 01/16/18 08:12 Dose: 30 ml Magnesium Oxide (Mag-Ox) 800 mg PO UNSCH PRN PRN Reason: For Magnesium 1.2 - 1.6 mg/dL Miscellaneous Medication () 1 each OROPHARYNG 0000,0400,1200,1600 [facility] Last Admin: 01/16/18 04:05 Dose: 1 each Ondansetron HCl (Zofran Inj) 4 mg IV.PUSH Q6H PRN PRN Reason: NAUSEA OR VOMITING Polyethylene Glycol (Miralax) 17 gm PO BID [facility] Last Admin: 01/15/18 20:52 Dose: 17 gm Potassium Bicarb/Potassium Chloride (K-Lyte Cl Eff) 50 meq PO UNSCH PRN PRN Reason: For Potassium 3.3 - 3.5 mEq/L Potassium Phosphate (K-Phos Original) 2,000 mg PO Q4H PRN PRN Reason: Phosphorus Less Than 2.5 mg/dL Last Admin: 01/15/18 14:26 Dose: 2,000 mg Potassium Phosphate (K-Phos Original) 2,000 mg PO UNSCH PRN PRN Reason: SEE LABEL COMMENTS Senna/Docusate Sodium (Merari-Colace) 1 tab PO BID [facility] Last Admin: 01/16/18 08:13 Dose: 1 tab Sodium Chloride (Ns Flush) 2 ml IV.FLUSH UNSCH PRN PRN Reason: FLUSH AFTER USING IV ACCESS Last Admin: 01/15/18 08:14 Dose: 2 ml Sodium Chloride (Ns Flush) 2 ml IV.FLUSH UNSCH PRN PRN Reason: FLUSH AFTER USING IV ACCESS Allergies Allergy/AdvReac Type Severity Reaction Status Date / Time lorazepam Allergy Severe Confusion Verified 01/09/18 11:21 morphine Allergy Severe Confusion Verified 01/09/18 11:21 penicillin G Allergy Mild UNKNOWN Verified 01/09/18 11:21 clonazepam Allergy Unknown confusion Verified 01/09/18 11:21 Home Medications Medication Instructions Recorded Confirmed Type Eliquis 01/09/18 History Physical Exam Vital signs: Vital Signs 01/15/18 10:00 01/15/18 11:18 01/15/18 11:25 Temperature Pulse Rate 58 L Respiratory Rate 18 22 17 Blood Pressure 138/66 Pulse Oximetry 96 98 98 01/15/18 12:00 01/15/18 14:00 01/15/18 15:36 Temperature 98.9 F Pulse Rate 71 58 L Respiratory Rate 18 18 Blood Pressure 108/59 L Pulse Oximetry 95 94 L 01/15/18 16:00 01/15/18 17:30 01/15/18 17:45 Temperature 97.7 F Pulse Rate 63 75 75 Respiratory Rate 18 Blood Pressure 134/64 145/72 H 133/62 Pulse Oximetry 91 L 100 92 L 01/15/18 18:00 01/15/18 18:15 01/15/18 18:30 Temperature Pulse Rate 70 71 62 Respiratory Rate Blood Pressure 130/61 118/56 L 129/65 Pulse Oximetry 93 L 96 96 01/15/18 18:45 01/15/18 19:00 01/15/18 19:15 Temperature Pulse Rate 68 65 68 Respiratory Rate Blood Pressure 130/69 130/66 118/58 L Pulse Oximetry 93 L 94 L 99 01/15/18 19:30 01/15/18 19:45 01/15/18 20:00 Temperature 98 F Pulse Rate 72 74 66 Respiratory Rate 18 Blood Pressure 133/64 137/70 132/63 Pulse Oximetry 90 L 91 L 92 L 01/15/18 20:03 01/15/18 20:15 01/15/18 20:30 Temperature Pulse Rate 70 64 67 Respiratory Rate 18 Blood Pressure 117/57 L 114/56 L Pulse Oximetry 93 L 89 L 95 01/15/18 20:45 01/15/18 21:00 01/15/18 21:15 Temperature Pulse Rate 71 74 70 Respiratory Rate Blood Pressure 142/66 H 139/65 119/56 L Pulse Oximetry 96 95 95 01/15/18 21:30 01/15/18 21:45 01/15/18 22:00 Temperature Pulse Rate 78 86 77 Respiratory Rate Blood Pressure 129/63 137/66 123/57 L Pulse Oximetry 94 L 96 95 01/15/18 22:15 01/15/18 22:30 01/15/18 22:45 Temperature Pulse Rate 78 75 74 Respiratory Rate Blood Pressure 133/63 126/58 L 122/61 Pulse Oximetry 95 93 L 94 L 01/15/18 23:00 01/15/18 23:15 01/15/18 23:30 Temperature Pulse Rate 74 74 78 Respiratory Rate Blood Pressure 127/61 125/59 L 120/59 L Pulse Oximetry 95 95 95 01/15/18 23:37 01/15/18 23:45 01/16/18 00:00 Temperature 98.4 F Pulse Rate 99 H 86 102 H Respiratory Rate 28 H 18 Blood Pressure 129/60 142/69 H Pulse Oximetry 95 95 94 L 01/16/18 00:45 01/16/18 01:00 01/16/18 01:01 Temperature Pulse Rate 152 H 152 H Respiratory Rate Blood Pressure 131/65 142/70 H Pulse Oximetry 96 96 01/16/18 01:15 01/16/18 01:30 01/16/18 01:45 Temperature Pulse Rate 145 H 152 H 150 H Respiratory Rate Blood Pressure 131/63 128/59 L 106/70 Pulse Oximetry 95 94 L 95 01/16/18 02:00 01/16/18 02:15 01/16/18 02:30 Temperature Pulse Rate 153 H 147 H 146 H Respiratory Rate Blood Pressure 136/71 130/70 135/63 Pulse Oximetry 95 96 96 01/16/18 02:45 01/16/18 03:00 01/16/18 03:15 Temperature Pulse Rate 146 H 142 H 142 H Respiratory Rate Blood Pressure 138/68 149/63 H 148/70 H Pulse Oximetry 95 96 97 01/16/18 03:30 01/16/18 03:41 01/16/18 03:45 Temperature Pulse Rate 140 H 141 H Respiratory Rate 23 Blood Pressure 136/71 135/75 Pulse Oximetry 97 98 98 01/16/18 04:00 01/16/18 04:15 01/16/18 04:30 Temperature 99.1 F Pulse Rate 150 H 153 H 137 H Respiratory Rate 18 Blood Pressure 161/72 H 145/75 H 144/67 H Pulse Oximetry 98 95 95 01/16/18 04:45 01/16/18 05:00 01/16/18 05:15 Temperature Pulse Rate 141 H 138 H 137 H Respiratory Rate Blood Pressure 127/66 136/74 127/66 Pulse Oximetry 91 L 94 L 93 L 01/16/18 05:30 01/16/18 05:45 01/16/18 06:00 Temperature Pulse Rate 138 H 135 H 153 H Respiratory Rate Blood Pressure 139/69 125/72 128/81 Pulse Oximetry 93 L 94 L 95 01/16/18 06:16 01/16/18 06:30 01/16/18 06:45 Temperature Pulse Rate 133 H 135 H 136 H Respiratory Rate Blood Pressure 147/78 H 133/72 112/74 Pulse Oximetry 96 96 96 Intake & Output 01/15/18 01/16/18 01/16/18 18:59 06:59 18:59 Intake Total 2028 / 2028 1859 / 1859 450 / 450 Output Total 1100 / 1100 625 / 625 Balance 928 / 928 1234 / 1234 450 / 450 Weight 118 kg Intake: IV 1502 / 1502 1428 / 1428 450 / 450 Heparin/D5W 25,000 U/250 mL 25, 212 / 212 000 unit In 250 ml @ Per Protocol IV.CONT TITRATE PRN Rx #:[id number] Versed Inj 50 mg In 50 ml @ 2 20 / 20 MG/HR 2 mls/hr IV.CONT TITRATE PRN Rx#:[id number] Alburx 5% Inj 500 ML @ 250 mls/ 500 / 500 hr IV.SIG ONCE ONE Rx#:[id number] Cordarone Inj 150 MG In D5W Inj 100 / 100 97 ML @ 600 mls/hr IV.SIG ONCE ONE Rx#:[id number] Azactam Inj 1,000 MG In NS Inj 100 / 100 100 / 100 100 ML @ 200 mls/hr IV.SIG Q8H [facility] Rx#:[id number] Zyvox 600 mg Premix 300 ML @ 300 / 300 300 / 300 300 mls/hr IV.SIG Q12H [facility] Rx#: [id number] Levophed Inj 16 MG In NS Inj 78 / 78 250 / 250 234 ML @ 2 MCG/MIN 1.87 mls/hr IV.SIG TITRATE PRN Rx#:[id number] KCl 40 mEq Premix Inj 40 meq In 100 / 100 100 ml @ 25 mls/hr IV.SIG UNSCH PRN Rx#:[id number] fentaNYL 10 mcg/mL Premix Drip 370 / 370 250 / 250 2,500 mcg In 250 ml @ 50 MCG/HR 5 mls/hr IV.SIG TITRATE PRN Rx #:[id number] Flagyl 500 MG Inj 100 ML @ 100 200 / 200 100 / 100 100 / 100 mls/hr IV.SIG Q6H [facility] Rx#: [id number] Flolan (30,000 ng/mL) Neb 20 ML 100 / 100 In NS Inj 80 ML @ 5 mls/hr NEB Q8H [facility] Rx#:[id number] Tube Feeding 466 / 466 311 / 311 Tube Irrigant 60 / 60 120 / 120 Output: Urine Amount (Catheter) 1100 / 1100 625 / 625 Indwelling Urethral Catheter 1100 / 1100 625 / 625 Other: Date of Last Bowel Movement 01/15/18 01/15/18 # Incontinent Bowel Movements 0 Narrative: Sedated Fentanyl and Versed Opens eyes and tracks per nurse Chest; marked rhonchi. Secretions less CV S1S2 RRR 1+ edema On levofed AF RVR on IV amio - Urinary Catheter Management Indwelling Urethral Catheter Cath placed during this visit: yes Reason for continuing: Acute urinary retention Insertion date: 01/09/18 Insertion time: 21:45 Results 01/16/18 04:45 01/16/18 04:45 Cardiac Enzymes 01/15/18 01/16/18 Range/Units 04:30 04:45 AST 67 H 62 H (15-37) U/L Coagulation 01/15/18 01/16/18 01/16/18 Range/Units 04:30 04:45 04:45 PT 13.9 H 13.2 H (9.8-11.6) sec APTT 49.9 H D 39.2 H D (23.4-31.7) sec CBC 01/15/18 01/16/18 Range/Units 04:30 04:45 WBC 10.6 15.3 H (4.0-11.0) th/mm3 RBC 3.15 L 3.43 L (4.50-5.90) mil/mm3 Hgb 10.1 L 10.5 L (13.0-17.0) gm/dL Hct 29.7 L 32.8 L (39.0-51.0) % Plt Count 106 L 131 L (150-450) th/mm3 Neut # (Auto) 9.5 H 13.1 H (1.8-7.7) th/mm3 Lymph # (Auto) 0.4 L 0.5 L (1.0-4.8) th/mm3 [place] # (Auto) 0.8 1.7 H (0.0-0.9) th/mm3 Eos # (Auto) 0.0 0.0 (0.0-0.4) th/mm3 Baso # (Auto) 0.0 0.0 (0.0-0.2) th/mm3 Comprehensive Metabolic Panel 01/15/18 01/16/18 Range/Units 04:30 04:45 Sodium 143 145 (136-145) meq/L Potassium 3.3 L 3.8 (3.5-5.1) meq/L Chloride 107 109 H (98-107) meq/L Carbon Dioxide 24.5 24.9 (21.0-32.0) meq/L BUN 49 H 52 H (7-18) mg/dL Creatinine 1.66 H 1.52 H (0.60-1.30) mg/dL Calcium 6.9 L* 7.0 L* (8.5-10.1) mg/dL AST 67 H 62 H (15-37) U/L ALT 189 H 179 H (12-78) U/L Alkaline Phosphatase 74 124 H (45-117) U/L Total Protein 5.4 L 6.1 L D (6.4-8.2) g/dL Albumin 1.7 L 2.5 L D (3.4-5.0) g/dL Intake and Output 01/15/18 01/16/18 01/16/18 22:59 06:59 14:59 Intake Total 1236 / 1236 1381 / 1381 450 / 450 Output Total 1100 / 1100 625 / 625 Balance 136 / 136 756 / 756 450 / 450 Intake: IV 710 / 710 950 / 950 450 / 450 Heparin/D5W 25,000 U/250 mL 25, / 000 unit In 250 ml @ Per Protocol IV.CONT TITRATE PRN Rx #:[id number] Alburx 5% Inj 500 ML @ 250 mls/ 500 / 500 hr IV.SIG ONCE ONE Rx#:[id number] Cordarone Inj 150 MG In D5W Inj 100 / 100 97 ML @ 600 mls/hr IV.SIG ONCE ONE Rx#:[id number] Azactam Inj 1,000 MG In NS Inj 100 / 100 100 / 100 100 ML @ 200 mls/hr IV.SIG Q8H [facility] Rx#:[id number] Zyvox 600 mg Premix 300 ML @ 300 / 300 300 mls/hr IV.SIG Q12H [facility] Rx#: [id number] Levophed Inj 16 MG In NS Inj 78 / 78 250 / 250 234 ML @ 2 MCG/MIN 1.87 mls/hr IV.SIG TITRATE PRN Rx#:[id number] fentaNYL 10 mcg/mL Premix Drip 120 / 120 250 / 250 2,500 mcg In 250 ml @ 50 MCG/HR 5 mls/hr IV.SIG TITRATE PRN Rx #:[id number] Flagyl 500 MG Inj 100 ML @ 100 100 / 100 100 / 100 100 / 100 mls/hr IV.SIG Q6H [facility] Rx#: [id number] Tube Feeding 466 / 466 311 / 311 Tube Irrigant 60 / 60 120 / 120 Output: Urine Amount (Catheter) 1100 / 1100 625 / 625 Indwelling Urethral Catheter 1100 / 1100 625 / 625 Other: Date of Last Bowel Movement 01/15/18 01/15/18 # Incontinent Bowel Movements 0 Weight 118 kg - Imaging and Cardiology Imaging: Impressions Chest X-Ray 01/15/18 17:48 CONCLUSION: Right central line in superior vena cava. No pneumothorax. Assessment and Plan - Assessment (1) Pulmonary hypertension Code(s): I27.20 - Pulmonary hypertension, unspecified Status: Acute (2) Elevated troponin Code(s): R74.8 - Abnormal levels of other serum enzymes Status: Acute (3) Acute kidney injury Code(s): N17.9 - Acute kidney failure, unspecified Status: Acute (4) Sudden cardiac arrest Code(s): I46.9 - Cardiac arrest, cause unspecified Status: Acute (5) Paroxysmal atrial fibrillation with rapid ventricular response Code(s): I48.0 - Paroxysmal atrial fibrillation Status: Acute (6) Left bundle branch block Code(s): I44.7 - Left bundle-branch block, unspecified Status: Acute (7) Coronary artery disease Code(s): I25.10 - Atherosclerotic heart disease of [place] coronary artery without angina pectoris Status: Acute (8) Junctional rhythm Code(s): I49.8 - Other specified cardiac arrhythmias Status: Acute - Plan 01/11/2018 Shock has worsened despite LVEF only mildly impaired. Required cardioversion for AF RVR. I would like to do a cardiac cath but rising creatinin /risk of renal failure. Lungs sound much worse ? CHF CXR pending. Labs and CXR pending. 01/12/2018 Shock improved. Creatinine improving, Possible cath Tuesday. Stop amiodarone due to intermittent junctional rhythm. KCL 20meq IVPB. Magnesium is OK now. 01/14/18 Hemodynamically continues to improve. Cardiac status overall stable. Renal indices also improving. Currently in NSR. Recommend no changes. Possibly cardiac cath Tuesday. 01/15/18 Cardiac status remains stable. Hemodynamically stable. Renal indices stable, and overall improved. No new recommendations. Dr. Trivedi to decide on timing of cardiac catheterization. 01/16/18 I was going to cath him today but he isn't stable. On levofed again - will cath if he stabilizes..
[2018-01-16 09:16] VITALS: O2SAT 99
[2018-01-16] MEDS: Polyethylene Glycol 3350 17 GM Packet PO SCH (10:40)
--- NOTE | 2018-01-16 12:50 | P.PNPAL ---
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 needed. Attestation Attestation: To help prompt me to consider important information that might be impacting today's encounter and assessment, information from prior notes written by myself or my colleagues may have been "brought forward" into today's note. My signature on this note, however, is an attestation that I personally performed the exam, history, and/or decision-making noted today, and, unless otherwise indicated, the interactions with patient, family, and staff as well as the review of records all occurred today. I also attest that the listed assessment and stated plan reflect my best clinical judgment today based on the combination of historical information, prior notes, and today's exam/ interactions. When time spent is documented, it refers only to time spent today by the signer, or if indicated, combined time spent today by collaborating physician/nurse practitioner.
[2018-01-16 13:17] VITALS: BP 137/74; PULSE 137; TEMP 98.4
--- NOTE | 2018-01-16 14:44 | P.PNNP ---
Subjective Interval history: Patient is critically ill, he does respond occasionally he is on ventilator Patient friends who have power of document review attorney have talked to palliative care and made decision to withdraw life support Physical Exam Vital signs: Vital Signs 01/15/18 15:36 01/15/18 16:00 01/15/18 17:30 Temperature 97.7 F Pulse Rate 63 75 Respiratory Rate 18 18 Blood Pressure 134/64 145/72 H Pulse Oximetry 94 L 91 L 100 01/15/18 17:45 01/15/18 18:00 01/15/18 18:15 Temperature Pulse Rate 75 70 71 Respiratory Rate Blood Pressure 133/62 130/61 118/56 L Pulse Oximetry 92 L 93 L 96 01/15/18 18:30 01/15/18 18:45 01/15/18 19:00 Temperature Pulse Rate 62 68 65 Respiratory Rate Blood Pressure 129/65 130/69 130/66 Pulse Oximetry 96 93 L 94 L 01/15/18 19:15 01/15/18 19:30 01/15/18 19:45 Temperature Pulse Rate 68 72 74 Respiratory Rate Blood Pressure 118/58 L 133/64 137/70 Pulse Oximetry 99 90 L 91 L 01/15/18 20:00 01/15/18 20:03 01/15/18 20:15 Temperature 98 F Pulse Rate 66 70 64 Respiratory Rate 18 18 Blood Pressure 132/63 117/57 L Pulse Oximetry 92 L 93 L 89 L 01/15/18 20:30 01/15/18 20:45 01/15/18 21:00 Temperature Pulse Rate 67 71 74 Respiratory Rate Blood Pressure 114/56 L 142/66 H 139/65 Pulse Oximetry 95 96 95 01/15/18 21:15 01/15/18 21:30 01/15/18 21:45 Temperature Pulse Rate 70 78 86 Respiratory Rate Blood Pressure 119/56 L 129/63 137/66 Pulse Oximetry 95 94 L 96 01/15/18 22:00 01/15/18 22:15 01/15/18 22:30 Temperature Pulse Rate 77 78 75 Respiratory Rate Blood Pressure 123/57 L 133/63 126/58 L Pulse Oximetry 95 95 93 L 01/15/18 22:45 01/15/18 23:00 01/15/18 23:15 Temperature Pulse Rate 74 74 74 Respiratory Rate Blood Pressure 122/61 127/61 125/59 L Pulse Oximetry 94 L 95 95 01/15/18 23:30 01/15/18 23:37 01/15/18 23:45 Temperature Pulse Rate 78 99 H 86 Respiratory Rate 28 H Blood Pressure 120/59 L 129/60 Pulse Oximetry 95 95 95 01/16/18 00:00 01/16/18 00:45 01/16/18 01:00 Temperature 98.4 F Pulse Rate 102 H 152 H Respiratory Rate 18 Blood Pressure 142/69 H 131/65 Pulse Oximetry 94 L 96 01/16/18 01:01 01/16/18 01:15 01/16/18 01:30 Temperature Pulse Rate 152 H 145 H 152 H Respiratory Rate Blood Pressure 142/70 H 131/63 128/59 L Pulse Oximetry 96 95 94 L 01/16/18 01:45 01/16/18 02:00 01/16/18 02:15 Temperature Pulse Rate 150 H 153 H 147 H Respiratory Rate Blood Pressure 106/70 136/71 130/70 Pulse Oximetry 95 95 96 01/16/18 02:30 01/16/18 02:45 01/16/18 03:00 Temperature Pulse Rate 146 H 146 H 142 H Respiratory Rate Blood Pressure 135/63 138/68 149/63 H Pulse Oximetry 96 95 96 01/16/18 03:15 01/16/18 03:30 01/16/18 03:41 Temperature Pulse Rate 142 H 140 H Respiratory Rate 23 Blood Pressure 148/70 H 136/71 Pulse Oximetry 97 97 98 01/16/18 03:45 01/16/18 04:00 01/16/18 04:15 Temperature 99.1 F Pulse Rate 141 H 150 H 153 H Respiratory Rate 18 Blood Pressure 135/75 161/72 H 145/75 H Pulse Oximetry 98 98 95 01/16/18 04:30 01/16/18 04:45 01/16/18 05:00 Temperature Pulse Rate 137 H 141 H 138 H Respiratory Rate Blood Pressure 144/67 H 127/66 136/74 Pulse Oximetry 95 91 L 94 L 01/16/18 05:15 01/16/18 05:30 01/16/18 05:45 Temperature Pulse Rate 137 H 138 H 135 H Respiratory Rate Blood Pressure 127/66 139/69 125/72 Pulse Oximetry 93 L 93 L 94 L 01/16/18 06:00 01/16/18 06:16 01/16/18 06:30 Temperature Pulse Rate 153 H 133 H 135 H Respiratory Rate Blood Pressure 128/81 147/78 H 133/72 Pulse Oximetry 95 96 96 01/16/18 06:45 01/16/18 07:00 01/16/18 07:16 Temperature Pulse Rate 136 H 136 H 148 H Respiratory Rate Blood Pressure 112/74 161/79 H 122/67 Pulse Oximetry 96 97 95 01/16/18 07:30 01/16/18 07:45 01/16/18 08:00 Temperature 97.2 F L Pulse Rate 123 H 140 H 135 H Respiratory Rate 18 Blood Pressure 127/59 L 89/56 L 93/60 L Pulse Oximetry 94 L 95 96 01/16/18 08:15 01/16/18 08:30 01/16/18 08:45 Temperature Pulse Rate 137 H 134 H 144 H Respiratory Rate Blood Pressure 98/61 L 99/63 L 92/58 L Pulse Oximetry 95 95 99 01/16/18 09:00 01/16/18 09:15 01/16/18 09:30 Temperature Pulse Rate 142 H 141 H 150 H Respiratory Rate Blood Pressure 133/72 137/73 142/77 H Pulse Oximetry 99 100 99 01/16/18 09:45 01/16/18 10:00 01/16/18 10:15 Temperature Pulse Rate 146 H 144 H 154 H Respiratory Rate Blood Pressure 120/81 124/77 123/63 Pulse Oximetry 99 99 99 01/16/18 10:45 01/16/18 11:00 01/16/18 11:15 Temperature Pulse Rate 146 H 156 H 149 H Respiratory Rate Blood Pressure 121/61 116/73 129/76 Pulse Oximetry 94 L 98 98 01/16/18 11:30 01/16/18 11:37 01/16/18 11:46 Temperature Pulse Rate 145 H 132 H Respiratory Rate 18 Blood Pressure 147/82 H 158/65 H Pulse Oximetry 98 99 99 01/16/18 12:00 01/16/18 12:15 01/16/18 12:30 Temperature 98.4 F Pulse Rate 143 H 150 H 155 H Respiratory Rate Blood Pressure 148/72 H 162/76 H 127/72 Pulse Oximetry 99 99 97 01/16/18 12:45 01/16/18 13:00 01/16/18 14:00 Temperature Pulse Rate 151 H 137 H 137 H Respiratory Rate Blood Pressure 145/86 H 137/74 Pulse Oximetry 98 99 Intake & Output 01/15/18 01/16/18 01/16/18 18:59 06:59 18:59 Intake Total 2027 / 2027 1859 / 1859 850 / 850 Output Total 1100 / 1100 625 / 625 Balance 928 / 928 1234 / 1234 850 / 850 Weight 118 kg Intake: IV 1502 / 1502 1428 / 1428 850 / 850 Heparin/D5W 25,000 U/250 mL 25, 212 / 212 000 unit In 250 ml @ Per Protocol IV.CONT TITRATE PRN Rx #:[id number] Versed Inj 50 mg In 50 ml @ 2 20 / 20 MG/HR 2 mls/hr IV.CONT TITRATE PRN Rx#:[id number] Alburx 5% Inj 500 ML @ 250 mls/ 500 / 500 hr IV.SIG ONCE ONE Rx#:[id number] Cordarone Inj 150 MG In D5W Inj 100 / 100 97 ML @ 600 mls/hr IV.SIG ONCE ONE Rx#:[id number] Azactam Inj 1,000 MG In NS Inj 100 / 100 100 / 100 100 ML @ 200 mls/hr IV.SIG Q8H [facility] Rx#:[id number] Zyvox 600 mg Premix 300 ML @ 300 / 300 300 / 300 300 / 300 300 mls/hr IV.SIG Q12H [facility] Rx#: [id number] Levophed Inj 16 MG In NS Inj 78 / 78 250 / 250 234 ML @ 2 MCG/MIN 1.87 mls/hr IV.SIG TITRATE PRN Rx#:[id number] KCl 40 mEq Premix Inj 40 meq In 100 / 100 100 ml @ 25 mls/hr IV.SIG UNSCH PRN Rx#:[id number] fentaNYL 10 mcg/mL Premix Drip 370 / 370 250 / 250 2,500 mcg In 250 ml @ 50 MCG/HR 5 mls/hr IV.SIG TITRATE PRN Rx #:[id number] Flagyl 500 MG Inj 100 ML @ 100 200 / 200 100 / 100 200 / 200 mls/hr IV.SIG Q6H [facility] Rx#: [id number] Flolan (30,000 ng/mL) Neb 20 ML 100 / 100 In NS Inj 80 ML @ 5 mls/hr NEB Q8H [facility] Rx#:[id number] Tube Feeding 466 / 466 311 / 311 Tube Irrigant 60 / 60 120 / 120 Output: Urine Amount (Catheter) 1100 / 1100 625 / 625 Indwelling Urethral Catheter 1100 / 1100 625 / 625 Other: Date of Last Bowel Movement 01/15/18 01/15/18 01/16/18 # Incontinent Bowel Movements 0 Narrative: Sedated Fentanyl and Versed Opens eyes and tracks per nurse Chest; marked rhonchi. Secretions less CV S1S2 irregularly irregular tachycardia 1+ edema On levofed AF RVR on IV amio - Urinary Catheter Management Indwelling Urethral Catheter Cath placed during this visit: yes Reason for continuing: Acute urinary retention Insertion date: 01/09/18 Insertion time: 21:45 Assessment and Plan - Assessment (1) Acute renal failure Code(s): N17.9 - Acute kidney failure, unspecified Status: Acute (2) Shock Code(s): R57.9 - Shock, unspecified Status: Acute (3) Sudden cardiac arrest Code(s): I46.9 - Cardiac arrest, cause unspecified Status: Acute (4) Paroxysmal atrial fibrillation with rapid ventricular response Code(s): I48.0 - Paroxysmal atrial fibrillation Status: Acute (5) Coronary artery disease Code(s): I25.10 - Atherosclerotic heart disease of [place] coronary artery without angina pectoris Status: Acute - Plan Patient with underlying ATN due to cardiogenic shock status post CPR the patient is in acute renal failure Creatinine improvin.6 -> 1.6 to 1.5 today UOP: 1.7 L UOP/24 hours Continue supportive care. Possible cardiac cath if stable power of document review attorney decided to withdraw life support Patient has comorbid conditions and suffered cardiac arrest is on the ventilator , heart catheterization is postponed
[2018-01-16] MEDS ORDERED: Midazolam Inj 5 MG/ML 1 ML Vial IV.PUSH ONE ×2 (15:45→16:00)
[2018-01-16] MEDS ORDERED: Hyoscyamine Inj 0.5 MG/ML Ampul IV.PUSH ONE (15:45)
[2018-01-16] MEDS ORDERED: HYDROmorphone PF Inj 1 MG/ML Ampul IV.PUSH ONE ×2 (15:45→16:00)
[2018-01-16] MEDS ORDERED: Hyoscyamine Inj 0.5 MG/ML Ampul IV.PUSH PRN (16:30)
[2018-01-16] MEDS ORDERED: Acetaminophen 650 MG Supp RECTAL PRN (16:30)
[2018-01-16] MEDS ORDERED: HYDROmorphone PF Inj 1 MG/ML Ampul IV.PUSH PRN ×2 (16:30)
== END 2018-01-16 16:40 | disposition expired ==
LOC: PHED 15:19 → HIMC 19:55
PROVIDERS: ADMIT Internal Medicine Critical Care Medicine; ATTEND Internal Medicine Critical Care Medicine